=== PATIENT | female | born 1940 | race Caucasian/White ===

== ENCOUNTER → 2016-12-11 | Day surgery (SDC) | payer OTHER ==
[2016-12-05 08:38] VITALS: Ht 157.5 cm; Wt 85.0 kg
[~2016-12-11] VITALS: Ht 157.5 cm; Wt 85.0 kg
[~2016-12-11] MED LIST: 500ML BSS 0.3ML EPI 1:1000PF IRRIG ONE; ACETAMINOPHEN 325 MG TAB PO PRN; ALBUAER2 INH; AMVISC PLUS 0.8ML SYRINGE INT OCU ONE; ATROPINE SULFATE 0.1 MG/ML 5ML SYR IV PRN; AcetaZOLAMIDE 250 MG TAB PO SCH; BETAXOLOL HCL 0.25% OP SUSP PER DROP CHARGE OPL SCH; BRIMONIDINE TART 0.2% OP SOLN PER DROP CHARGE ONE; BSS FLUSH ONE; CHOL1000 PO; DILT180C58 PO; ENDOCOAT 0.85ML SYRINGE INT OCU ONE; EpHEDrine SULFATE INJ 50 MG/ML AMP IV PRN; EpINEphrine INJ 1MG/ML AMP 1 MG/ML AMP ONE; FLNIN/ NAE; GABA-113 PO; GLUCTAB7 PO; HYDR-2977 PO; KLN5X PO; LACTATED RINGER'S 1000ML 500 ML IV SCH; LIDOCAINE 4% OP SOLN DROP CHARGE ONE; LIDOCAINE 4% OP SOLN DROP CHARGE OPL SCH; LIDOCAINE HCL 1% MPF 2 ML VIAL ONE; LOSA1TAB PO; MIDAZOLAM HCL 1 MG/ML 2ML VIAL ONE; MIX: 4ML BSS 1ML EPI 1:1000 PF INSTIL ONE; MOXIFLOXACIN OPH SOLN PER DROP CHARGE ONE; OCUCOAT 1 ML SOLN IO ONE; POVIDONE-IODINE OP SOLN 30 ML BTL ONE; PROPARACAINE 0.5% OP SOLN PER DROP CHARGE OPL SCH; TOBRAMYCIN/DEXAMETHASONE OPH OINT PER APPLN CHARGE ONE
--- NOTE | 2016-12-11 06:41 | History & Physical Bridge - [place] ---
H&P Re-Evaluation Bridge Note: I have examined the patient, reviewed the History & Physical and in the interval since the performance of the History & Physical I have noted the following changes of clinical significance: No changes noted
[2016-12-11] MEDS: PHENYLEPHRINE HCL 2.5% OP SOLN PER DROP CHARGE OPL SCH ×2 (06:54→06:59)
[2016-12-11] MEDS: TROPICAMIDE 1% OP SOLN PER DROP CHARGE OPL SCH ×2 (06:55→07:00)
[2016-12-11] MEDS: CYCLOPENTOLATE HCL 1% OP SOLN PER DROP CHARGE OPL SCH ×2 (06:56→07:01)
[2016-12-11] MEDS: MOXIFLOXACIN OPH SOLN PER DROP CHARGE OPL SCH ×2 (06:57→07:10)
--- NOTE | 2016-12-11 07:58 | Discharge Instructions-SurgCtr ---
Discharge Instructions Date of Service Dec 11, 2016. Visit Reason for Visit: Left Cataract Discharge Discharge Diagnosis / Problem: lens implant left eye Discharge Goals Goal(s): Improve function Activity Recommendations Activity Limitations: resume your previous activity Lifting Limitations: no more than 10 pounds Exercise/Sports Limitations: gradually increase as tolerated May Resume Sexual Activity: when tolerated Shower/Bathe: tomorrow Driving or Machine Use: resume 1 day after discharge Anesthesia . Post Anesthesia Instructions: If you have had General Anesthesia or IV Sedation: * Do not drive today. * Resume driving when surgeon permits. * Do not make important decisions or sign legal documents today. * Call surgeon for: 1. Temperature elevations greater than 101 degrees F. 2. Uncontrollable pain. 3. Excessive bleeding. 4. Persistent nausea and vomiting. 5. Medication intolerance (nausea, vomiting or rash). * For nausea and vomiting use only clear liquids such as: tea, soda, bouillon until nausea subsides, then gradually increase diet as tolerated. * If you have any concerns or questions, call your surgeon's office. If physician is unavailable and it is an emergency, call 911 or go to the nearest emergency room. . Instructions / Follow-Up Instructions / Follow-Up ACTIVITY RECOMMENDATIONS: * Light activities. * Mild irritation and blurred vision are common for the first few days. * You may walk outside, read, watch television. * Redness around the white part of the eye is common. MEDICATIONS: Resume previous medications unless instructed otherwise by your surgeon. * Take white Diamox (Acetazolamide) tablet at 1 pm today. Start all eye drops at 1 pm today: * Eye drops (today and tomorrow): Prednisone - one drop in operative eye every 3 hours while awake Ofloxacin - one drop in operative eye every 3 hours while awake SPECIAL CARE INSTRUCTIONS: * Tape plastic shield over eye to sleep at night. Call your doctor at with any concerns or problems. FOLLOW UP VISIT: Follow-up with Dr Jeffery at [place] office as scheduled. Diet Recommendations Home Diet: no limitations Procedures Procedures Performed: cataract extraction with lens implant Pending Studies Studies pending at discharge: no Medical Emergencies . Who to Call and When: Medical Emergencies: If at any time you feel your situation is an emergency, please call 911 immediately. . Non-Emergent Contact Non-Emergency issues call your: [employer] Call Non-Emergent contact if: your pain is not controlled [phone] . . "Provider Documentation" section prepared by Oziel Jeffery. .
--- NOTE | 2016-12-11 07:59 | [facility] Operative Report ---
Operative Report Date of Service Dec 11, 2016. Operative Report 1. PREOPERATIVE DIAGNOSIS: Senile nuclear cataract, left eye. 2. POSTOPERATIVE DIAGNOSIS: Senile nuclear cataract, left eye. 3. PROCEDURE: Phacoemulsification of left cataract with posterior chamber lens implant, type [employer], model MI60L, power +24.5 diopters. ANESTHESIA: Local standby. SURGEON: Dr. Jeffery. COMPLICATIONS: None. OPERATING TIME: 10 minutes. 4. OPERATION AND FINDINGS: DESCRIPTION OF PROCEDURE: The left pupil was dilated. The anesthetic was administered using a topical technique. The left eye was prepped and draped. A speculum was placed. A clear corneal incision was formed. The chamber was filled with Amvisc Plus and Endocoat. Epinephrine solution was used. A paracentesis was placed. A capsulorrhexis was performed. The nucleus was hydrodissected. The lens was removed with phacoemulsification. Time was 4.95 seconds. The aspiration unit was used to remove the cortex. The capsule was filled with Amvisc Plus. The lens implant was folded and placed into the capsule. The incision was hydrated. The Amvisc was aspirated. The wound was secure. The chamber was deep. The pupil was round. Brimonidine, TobraDex ointment and Vigamox solution were placed. The speculum was removed. The patient was returned to the Recovery Room in stable condition. I attest to the content of the Intraoperative Record and any orders documented therein. Any exceptions are noted below. The scribe's documentation has been prepared in my presence, under my direction and personally reviewed by me in its entirety. I confirm that the note above accurately reflects all work, treatment, procedures, and medical decision making performed by me. I personally scribed for Oziel Jeffery M.D. ([email or web address]) on 12/11/16 at 07:59. Electronically submitted by Latosha Ott (ABI).
[2016-12-11 08:04] VITALS: TEMP 36.5
--- NOTE | 2016-12-11 08:19 | Anesthesia Progress Nt - [facility] ---
Anesthesia Post Op Note Date & Time Dec 11, 2016 at 08:19 Vital Signs Pain Intensity: 0 Vital Signs Past 12 Hours Date Time Temp Pulse Resp B/P (MAP) Pulse Ox O2 Delivery O2 Flow Rate FiO2 12/11/16 08:04 36.5 57 16 132/78 (96) 97 Room Air 12/11/16 06:40 36.4 71 20 168/94 (118) 96 Room Air Notes Mental Status: alert / awake / arousable, participated in evaluation Pt Amnestic to Procedure: Yes Nausea / Vomiting: adequately controlled Pain: adequately controlled Airway Patency, RR, SpO2: stable & adequate BP & HR: stable & adequate Hydration State: stable & adequate Anesthetic Complications: no major complications apparent
[2016-12-11 08:29] VITALS: BP 153/60; PULSE 57; O2SAT 96
== END | disposition home or self-care (01) ==
LOC: X.SURG 06:24
PROVIDERS: ATTEND Specialist
DX: H25.12 Age-related nuclear cataract, left eye (principal); I10 Essential (primary) hypertension; M19.90 Unspecified osteoarthritis, unspecified site; Z85.118 Personal history of other malignant neoplasm of bronchus and lung; Z90.2 Acquired absence of lung [part of]; Z68.34 Body mass index [BMI] 34.0-34.9, adult; Z98.41 Cataract extraction status, right eye

== ENCOUNTER → 2017-10-01 | Outpatient (CLI) | payer OTHER ==
[~2017-10-01] MED LIST changes: -500ML BSS 0.3ML EPI 1:1000PF IRRIG ONE; -ACETAMINOPHEN 325 MG TAB PO PRN; -AMVISC PLUS 0.8ML SYRINGE INT OCU ONE; -ATROPINE SULFATE 0.1 MG/ML 5ML SYR IV PRN; -AcetaZOLAMIDE 250 MG TAB PO SCH; -BETAXOLOL HCL 0.25% OP SUSP PER DROP CHARGE OPL SCH; -BRIMONIDINE TART 0.2% OP SOLN PER DROP CHARGE ONE; -BSS FLUSH ONE; -DILT180C58 PO; +DILT180C96 PO; -ENDOCOAT 0.85ML SYRINGE INT OCU ONE; -EpHEDrine SULFATE INJ 50 MG/ML AMP IV PRN; -EpINEphrine INJ 1MG/ML AMP 1 MG/ML AMP ONE; -LACTATED RINGER'S 1000ML 500 ML IV SCH; -LIDOCAINE 4% OP SOLN DROP CHARGE ONE; -LIDOCAINE 4% OP SOLN DROP CHARGE OPL SCH; -LIDOCAINE HCL 1% MPF 2 ML VIAL ONE; -MIDAZOLAM HCL 1 MG/ML 2ML VIAL ONE; -MIX: 4ML BSS 1ML EPI 1:1000 PF INSTIL ONE; -MOXIFLOXACIN OPH SOLN PER DROP CHARGE ONE; -OCUCOAT 1 ML SOLN IO ONE; -POVIDONE-IODINE OP SOLN 30 ML BTL ONE; -PROPARACAINE 0.5% OP SOLN PER DROP CHARGE OPL SCH; -TOBRAMYCIN/DEXAMETHASONE OPH OINT PER APPLN CHARGE ONE
--- NOTE | 2017-10-01 17:08 | DIAGNOSTIC IMAGING REPORT ---
CHEST CT WITH CONTRAST CT DOSE: 1190.74 mGy.cm HISTORY: Follow-up study in a patient with history of pulmonary nodule. History of lung cancer. Acute left lower quadrant abdominal pain. X TECHNIQUE: Multiaxial CT images of the chest, abdomen and pelvis were performed following the intravenous administration of contrast. A dose lowering technique was utilized adhering to the principles of ALARA. COMPARISON: CT chest 04/04/2015, PET CT 04/04/2014. FINDINGS: CT CHEST: Thyroid appears mildly heterogeneous without dominant nodule identified. No pathologically enlarged lymph nodes identified. Heart is upper limits of normal in size with coronary arterial disease. Thoracic aorta demonstrates moderate atherosclerosis without aneurysm or dissection. The imaged great vessels appear patent. The main pulmonary arterial tree is dilated, 3.2 cm. No focal filling defects within the pulmonary arterial tree. Moderate upper lobe predominant centrilobular emphysema. Postoperative changes from prior right upper lobectomy. 5 mm solid nodule of the right middle lobe, image 92 series 4, stable. 4 mm solid nodule right middle lobe on image 144 series 4 is also unchanged. Pleural-based 4 mm solid nodule of the right lower lobe, image 179 series 4 appears new from prior. 5 mm solid nodule of the left lower lobe, image 145 series 4 is unchanged. No new pulmonary nodules identified. Mild subsegmental bibasilar opacities suggest atelectasis with pleural parenchymal scarring of the right lung base. Mild bilateral bronchial wall thickening suggests bronchitis. Surgical clips about the left breast. Soft tissues are within normal limits. Bones appear intact. No suspicious lytic or blastic bony lesions. Multilevel spondylitic spurring and mostly mild facet arthrosis about the thoracic spine. CT ABDOMEN/PELVIS: No pneumatosis or pneumoperitoneum identified. Fatty infiltration of the liver. Layering gallstones are seen within the gallbladder neck. No CT evidence of acute cholecystitis. No intrahepatic biliary ductal dilation. Indeterminate 9 mm low attenuating focus of the pancreatic tail, image 136 series 6 . No pancreatic ductal dilation. Spleen and adrenal glands are within normal limits. 7 mm low attenuating lesion of the superior pole left kidney suggests renal cyst. No renal calculi or obstructive uropathy. Bladder is unremarkable. Curvilinear 6 mm calcification of the right fundal uterus may reflect calcification within a fibroid. Moderate to extensive atherosclerosis of the aorta with mild ectasia at the level the kidneys, 2.5 cm. No aneurysm. No bulky adenopathy. No bowel obstruction or focal bowel wall thickening. Extensive sigmoid colon diverticulosis without CT evidence of acute diverticulitis. Appendix appears normal. No inflammatory changes or ascites. Diastases recti. Bones appear intact without suspicious lytic or blastic bony lesions. Multilevel degenerative changes about the lumbar spine. IMPRESSION: 1. No acute intrathoracic, intra-abdominal or intrapelvic abnormality identified. No evidence of metastatic disease. 2. Emphysema with prior right upper lobectomy and unchanged pleural parenchymal scarring of the right lung base. 3. Multiple solid subcentimeter pulmonary nodules are again noted bilaterally which appear stable from comparison study 04/04/2015. 4. Cholelithiasis without CT evidence of acute cholecystitis. 5. Colonic diverticulosis without evidence of acute diverticulitis. 6. Hepatic steatosis. 7. 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 10/01/2017 5:07 PM Dictated Date/Time: 10/01/2017 4:48 PM
== END | disposition home or self-care (01) ==
LOC: C.CTS 15:26
PROVIDERS: ATTEND Student in an Organized Health Care Education/Training Program
DX: R10.32 Left lower quadrant pain (principal); J43.9 Emphysema, unspecified; R91.8 Other nonspecific abnormal finding of lung field; Z85.118 Personal history of other malignant neoplasm of bronchus and lung; Z90.2 Acquired absence of lung [part of]; K80.20 Calculus of gallbladder without cholecystitis without obstruction; K57.30 Diverticulosis of large intestine without perforation or abscess without bleeding; K76.0 Fatty (change of) liver, not elsewhere classified

== ENCOUNTER 2022-06-17 14:29 | Inpatient (IN) ==
[2022-06-17 16:55] LABS: Basophils # (auto) 0.09 K/uL (0-0.2); Basophils % (auto) 0.8 %; Eosinophils # (auto) 0.15 K/uL (0-0.50); Eosinophils % (auto) 1.3 %; Hematocrit (blood only) 35.1 % (34.1-44.9); Hemoglobin 11.6 g/dl (12.0-16.0); Immature Granulocytes # (auto) 0.04 K/uL (0.00-0.02); Immature Granulocytes % (auto) 0.4 %; Lymphocytes # (auto) 2.51 K/uL (1.2-3.4); Lymphocytes % (auto) 22.1 %; Mean Corpuscular Hemoglobin 25.9 pg (25.0-34.0); Mean Corpuscular Volume 78.3 fL (80.0-100.0); Mean Platelet Volume 8.6 fL (9.4-12.3); Monocytes # (auto) 1.14 K/uL (0.24-0.82); Neutrophils # (auto) 7.45 K/uL (1.4-6.5); Neutrophils % (auto) 65.4 %; Platelet Count 410 K/uL (130-400); RDW Coefficient of Variation 16.5 % (11.5-14.5); RDW Standard Deviation 47.3 fL (36.4-46.3); Red Blood Count 4.48 M/uL (3.93-5.22); White Blood Count 11.38 K/ul (4.8-10.8)
[2022-06-17 17:00] LABS: Appearance Urine Clear (Clear); Bacteria Urine Automated Negative (Negative); Bilirubin Urine Negative (Negative); Blood Urine Negative (Negative); Color Urine Yellow; Epithelial Cell Urine Auto >30 /lpf (0-5); Glucose Urine UA Negative (Negative); Ketones Urine Negative (Negative); Leukocyte Esterase Urine 1+ (Negative); Nitrite Urine Negative (Negative); Protein Urine 2+ (Negative); RBC Urine Automated 0-4 /hpf (0-4); Specific Gravity Urine 1.018 (1.000-1.030); Urobilinogen Urine Negative (Negative); pH Urine 5.5 (4.5-7.5)
[2022-06-17 17:17] LABS: Partial Thromboplastin Ratio 1.3; Partial Thromboplastin Time 36.7 Seconds (21.0-31.0); Prothrombin Time 10.5 Seconds (9.0-12.0)
[2022-06-17 17:24] LABS: Albumin Globulin Ratio 1.2 (0.9-2); Albumin Level 4.4 gm/dl (3.4-5.0); BUN Creatinine Ratio 16.4 (10-20); Bilirubin,Total 0.6 mg/dl (0.2-1.0); Calcium 9.5 mg/dl (8.5-10.1); Creatinine Clr Calc Pharmacy 67.2 ml/min; Est GFR (African American) 95.5 ml/min; Est GFR (Non-African American) 82.4 ml/min; Globulin 3.6 gm/dl (2.5-4.0); Magnesium 1.8 mg/dl (1.7-2.4); Potassium 4.3 mmol/L (3.5-5.1)
--- NOTE | 2022-06-17 19:10 | CT Scan Report ---
CT SCAN OF THE BRAIN WITHOUT IV CONTRAST CLINICAL HISTORY: Change in mental status. COMPARISON STUDY: MRI of the brain dated 01/10/2012. TECHNIQUE: Unenhanced axial CT scan of the brain is performed from the vertex to the skull base. A do se lowering technique was utilized adhering to the principles of ALARA. CT DOSE: 537.48 mGy.cm FINDINGS: Brain parenchyma: There is age-related involutional change noting moderate subcortical and periventri cular microangiopathic disease. There is no hemorrhage, mass effect, or evidence of acute territorial ischemia by CT criteria. Senior-white matter differentiation is preserved. No extra-axial fluid collec tion is seen. Ventricles, sulci, cisterns: Prominent secondary to involutional change. Intracranial vasculature: There is atherosclerotic calcification of the cavernous carotid and vertebr al arteries. Calvarium: Unremarkable. Sinuses and mastoids: There is mild mucosal thickening in the left maxillary antrum. The remaining vi sualized paranasal sinuses are clear. The mastoid air cells are well pneumatized. Orbits: The bony orbits are grossly intact. There are bilateral ocular lens implants. IMPRESSION: There is no hemorrhage, mass effect, or evidence of acute territorial ischemia by CT em butler. ACT 112: Negative or not required by law. Electronically signed by: Mahesh Sainz M.D. 06/17/2022 7:08 PM
--- NOTE | 2022-06-17 20:45 | Emergency Department Note ---
Impression & Plan Hyponatremia, Weakness, Acute confusion ED Provider Note NAME: ANNA WONG AGE: 81 SEX: F : 1940 ARRIVES VIA: Walk-In INFORMANT: Patient ED PROVIDER(S): Reynold Wiggins DO CHIEF COMPLAINT: weakness and confusion HPI: Patient is an 81-year-old female who presents to the ER for weakness and confusion. Granddaughter is at bedside and notes that the patient was confused on Xavier Ev and then confused again today. Lasted for about an hour. Denies any headache or change in vision. No chest pain or shortness of breath. No belly pain nausea vomiting or diarrhea. She notes she drinks about 3 24oz glass of water a day. She has no other complaints. Granddaughter confirms confusion and notes that it was more than her just not knowing her son's name but rather she did not know what was going on around her. There is no facial droop or slurred speech. ROS: See above HPI for pertinent positives & negatives. A total of 10 systems reviewed and were otherwise negative. PAST MEDICAL HISTORY:See Below PAST SURGICAL HISTORY:See Below FAMILY HISTORY:See Below SOCIAL HISTORY:See Below HOME MEDICATIONS:See Below ALLERGIES:See Below VITALS:See Below PHYSICAL EXAMINATION: GENERAL: Sitting up in bed, alert, well appearing, well nourished, no distress, non-toxic EYE EXAM: normal conjunctiva. PERRL and EOM's intact. OROPHARYNX: no exudate, no erythema, lips, buccal mucosa, and tongue normal and mucous membranes are moist NECK: supple, no nuchal rigidity, no adenopathy, non-tender LUNGS: Clear to auscultation. Normal chest wall mechanics HEART: no murmurs, S1 normal and S2 normal ABDOMEN: abdomen soft, non-tender, normo-active bowel sounds, no masses, no rebound or guarding. BACK: Back is symmetrical on inspection and there is no deformity, no midline tenderness, no CVA tenderness. SKIN: no rashes and no bruising UPPER EXTREMITIES: upper extremities are grossly normal. LOWER EXTREMITIES: No pitting edema. NEURO EXAM: Normal sensorium, cranial nerves II-XII intact, normal speech, no weakness of arms, no weakness of legs. No drift. Finger to nose intact. Gross sensation intact. Ambulates with a cane. MEDICAL DECISION MAKING: Patient is an 81-year-old female who presents the ER for confusion. IV was established blood work was obtained. Labs show no significant leukocytosis. Mild anemia 11.6. BMP with hyponatremia at 123. LFTs bilirubin was unremarkable. Troponin was negative. UA was contaminated with multiple epithelial cells. COVID was negative. CT head was negative. Chest x-ray was unremarkable. Patient was discussed with the hospitalist for further evaluation and admission as she is at baseline. Triage Nursing notes reviewed. Limited review of prior medical records performed Vital Signs: reviewed and remarkable for no significant abnormalities Differential diagnosis: Differential diagnoses includes but is not limited to toxic, metabolic, infectious, traumatic, cardiac, neurologic, hematologic, psychiatric and inflammatory etiologies. ER treatment provided: See below Diagnostics interpreted by me: ECG: Sinus rhythm rate of 65 Normal axis No PVCs T wave inversion in lead aVL QTC 413 Cardiac Monitoring: An order was placed for continuous cardiac monitoring. The monitor shows a rate of 70 with sinus rhythm. Laboratory studies: As stated above and show below. Imaging studies: CT head was negative Chest x-ray with no pneumonia Consultation(s): Discussed with the hospitalist Dr. Tran for further evaluation Procedures: none Critical Care: None Past Med/Surg History Social History Smoking Status: Never smoker Preferred Language: Georgian Feels Safe at Home: Yes Allergies Allergies Allergy/AdvReac Type Severity Reaction Status Date / Time No Known Allergies Allergy Unknown Verified 05/13/20 20:17 Home Meds Home Medications Medication Instructions Recorded Confirmed cholecalciferol (vitamin D3) 25 25 mcg PO DAILY 05/13/20 06/18/22 mcg (1,000 unit) tablet (Vitamin D3) clonazepam 0.5 mg tablet 0.5 mg PO BID 05/13/20 06/18/22 diltiazem HCl 180 mg 180 mg PO DAILY 05/13/20 06/18/22 capsule,extended release 24 hr fluticasone propionate 50 2 spray intranasal DAILY 05/13/20 06/18/22 mcg/actuation nasal spray,suspension gabapentin 300 mg capsule 300 mg PO AMHS 05/13/20 06/18/22 hydralazine 10 mg tablet 10 mg PO TID 05/13/20 06/18/22 losartan 50 mg tablet 50 mg PO DAILY 05/13/20 06/18/22 rosuvastatin 5 mg tablet 5 mg PO DAILY 05/13/20 06/18/22 fluticasone 250 mcg-salmeterol 50 1 ea inhalation AMHS 06/18/22 06/18/22 mcg/dose blistr powdr for inhalation gabapentin 100 mg capsule 100 mg PO QAM 06/18/22 06/18/22 [id number]-[id number] C-Mn 500 1 cap PO DAILY 06/18/22 06/18/22 mg-400 mg capsule (Glucosamine Chondroitin Maximum Strength) omega 5-jxt-ifb-fish oil 1,000 mg 1 cap PO DAILY 06/18/22 06/18/22 (120 mg-180 mg) capsule (Fish Oil) Results & Data (ED) Vital Signs Vital Signs - 24 hr 06/17/22 14:43 06/18/22 00:32 Temperature 37.2 C Temperature Source Temporal Artery Scan Pulse Rate 67 Pulse Rate [Apical] 71 Pulse Rhythm [Apical] Regular Respiratory Rate 18 19 Respiratory Effort / Characteristics Non-Labored Spontaneous Respiratory Depth Normal Normal Respiratory Pattern Regular Blood Pressure 172/81 H Blood Pressure [Right Arm] 176/87 H Blood Pressure Mean 111 Blood Pressure Mean [Right Arm] 116 Blood Pressure Position Sitting Pulse Oximetry 97 97 Oxygen Delivery Method Room Air Room Air Sepsis Recent Fever Within 48 Hours No Sepsis New/Unexplained Change in Mental Status N/A Sepsis Action Taken by Nursing No Action Required Laboratory Data Result diagrams: 06/17/22 16:35 06/17/22 16:35 Lab Results 06/17/22 06/17/22 06/17/22 Range/Units 16:33 16:35 16:35 WBC 11.38 H (4.8-10.8) K/ul RBC 4.48 (3.93-5.22) M/uL Hgb 11.6 L (12.0-16.0) g/dl Hct 35.1 (34.1-44.9) % MCV 78.3 L (80.0-100.0) fL MCH 25.9 (25.0-34.0) pg MCHC 33.0 (32.0-36.0) g/dL RDW Std Deviation 47.3 H (36.4-46.3) fL RDW Coeff of Denis 16.5 H (11.5-14.5) % Plt Count 410 H (130-400) K/uL MPV 8.6 L (9.4-12.3) fL Immature Gran % (Auto) 0.4 % Neut % (Auto) 65.4 % Lymph % (Auto) 22.1 % [place] % (Auto) 10.0 % Eos % (Auto) 1.3 % Baso % (Auto) 0.8 % Neut # (Auto) 7.45 H (1.4-6.5) K/uL Lymph # (Auto) 2.51 (1.2-3.4) K/uL [place] # (Auto) 1.14 H (0.24-0.82) K/uL Eos # (Auto) 0.15 (0-0.50) K/uL Baso # (Auto) 0.09 (0-0.2) K/uL Immature Gran # (Auto) 0.04 H (0.00-0.02) K/uL PT 10.5 (9.0-12.0) Seconds INR 1.0 (0.9-1.1) APTT 36.7 H (21.0-31.0) Seconds PTT Ratio 1.3 Sodium (136-145) mmol/L Potassium (3.5-5.1) mmol/L Chloride (98-107) mmol/L Carbon Dioxide (21-32) mmol/L Anion Gap (3-11) BUN (6-23) mg/dl Creatinine (0.6-1.2) mg/dl Est Cr Clr Drug Dosing ml/min Est GFR ( Amer) ml/min Est GFR (Non-Af Amer) ml/min BUN/Creatinine Ratio (10-20) Glucose (70-99(Fasting)) mg/dl Calcium (8.5-10.1) mg/dl Magnesium (1.7-2.4) mg/dl Total Bilirubin (0.2-1.0) mg/dl AST (13-39) U/L ALT (7-52) U/L Alkaline Phosphatase (34-104) U/L Troponin I High Sens (0-14) pg/ml Total Protein (6.0-8.3) gm/dl Albumin (3.4-5.0) gm/dl Globulin (2.5-4.0) gm/dl Albumin/Globulin Ratio (0.9-2) TSH (0.300-4.500) uIu/ml Urine Color Yellow Urine Appearance Clear (Clear) Urine pH 5.5 (4.5-7.5) Ur Specific Wana 1.018 (1.000-1.030) Urine Protein 2+ H (Negative) Urine Glucose (UA) Negative (Negative) Urine Ketones Negative (Negative) Urine Blood Negative (Negative) Urine Nitrite Negative (Negative) Urine Bilirubin Negative (Negative) Urine Urobilinogen Negative (Negative) Ur Leukocyte Esterase 1+ H (Negative) Urine WBC (Auto) 10-30 H (0-5) /hpf Urine RBC (Auto) 0-4 (0-4) /hpf U Hyaline Cast (Auto) 1-5 (0-5) /lpf U Epithel Cells (Auto) >30 H (0-5) /lpf Urine Bacteria (Auto) Negative (Negative) SARS-CoV-2, RNA, NAAT (NEGATIVE) 06/17/22 06/17/22 06/17/22 Range/Units 16:35 16:35 21:43 WBC (4.8-10.8) K/ul RBC (3.93-5.22) M/uL Hgb (12.0-16.0) g/dl Hct (34.1-44.9) % MCV (80.0-100.0) fL MCH (25.0-34.0) pg MCHC (32.0-36.0) g/dL RDW Std Deviation (36.4-46.3) fL RDW Coeff of Denis (11.5-14.5) % Plt Count (130-400) K/uL MPV (9.4-12.3) fL Immature Gran % (Auto) % Neut % (Auto) % Lymph % (Auto) % [place] % (Auto) % Eos % (Auto) % Baso % (Auto) % Neut # (Auto) (1.4-6.5) K/uL Lymph # (Auto) (1.2-3.4) K/uL [place] # (Auto) (0.24-0.82) K/uL Eos # (Auto) (0-0.50) K/uL Baso # (Auto) (0-0.2) K/uL Immature Gran # (Auto) (0.00-0.02) K/uL PT (9.0-12.0) Seconds INR (0.9-1.1) APTT (21.0-31.0) Seconds PTT Ratio Sodium 123 L (136-145) mmol/L Potassium 4.3 (3.5-5.1) mmol/L Chloride 90 L (98-107) mmol/L Carbon Dioxide 25 (21-32) mmol/L Anion Gap 8 (3-11) BUN 11 (6-23) mg/dl Creatinine 0.67 (0.6-1.2) mg/dl Est Cr Clr Drug Dosing 67.2 ml/min Est GFR ( Amer) 95.5 ml/min Est GFR (Non-Af Amer) 82.4 ml/min BUN/Creatinine Ratio 16.4 (10-20) Glucose 116 H (70-99(Fasting)) mg/dl Calcium 9.5 (8.5-10.1) mg/dl Magnesium 1.8 (1.7-2.4) mg/dl Total Bilirubin 0.6 (0.2-1.0) mg/dl AST 40 H (13-39) U/L ALT 36 (7-52) U/L Alkaline Phosphatase 68 (34-104) U/L Troponin I High Sens (0-14) pg/ml Total Protein 8.0 (6.0-8.3) gm/dl Albumin 4.4 (3.4-5.0) gm/dl Globulin 3.6 (2.5-4.0) gm/dl Albumin/Globulin Ratio 1.2 (0.9-2) TSH 0.889 (0.300-4.500) uIu/ml Urine Color Urine Appearance (Clear) Urine pH (4.5-7.5) Ur Specific Wana (1.000-1.030) Urine Protein (Negative) Urine Glucose (UA) (Negative) Urine Ketones (Negative) Urine Blood (Negative) Urine Nitrite (Negative) Urine Bilirubin (Negative) Urine Urobilinogen (Negative) Ur Leukocyte Esterase (Negative) Urine WBC (Auto) (0-5) /hpf Urine RBC (Auto) (0-4) /hpf U Hyaline Cast (Auto) (0-5) /lpf U Epithel Cells (Auto) (0-5) /lpf Urine Bacteria (Auto) (Negative) SARS-CoV-2, RNA, NAAT NEGATIVE (NEGATIVE) 06/17/22 Range/Units 23:29 WBC (4.8-10.8) K/ul RBC (3.93-5.22) M/uL Hgb (12.0-16.0) g/dl Hct (34.1-44.9) % MCV (80.0-100.0) fL MCH (25.0-34.0) pg MCHC (32.0-36.0) g/dL RDW Std Deviation (36.4-46.3) fL RDW Coeff of Denis (11.5-14.5) % Plt Count (130-400) K/uL MPV (9.4-12.3) fL Immature Gran % (Auto) % Neut % (Auto) % Lymph % (Auto) % [place] % (Auto) % Eos % (Auto) % Baso % (Auto) % Neut # (Auto) (1.4-6.5) K/uL Lymph # (Auto) (1.2-3.4) K/uL [place] # (Auto) (0.24-0.82) K/uL Eos # (Auto) (0-0.50) K/uL Baso # (Auto) (0-0.2) K/uL Immature Gran # (Auto) (0.00-0.02) K/uL PT (9.0-12.0) Seconds INR (0.9-1.1) APTT (21.0-31.0) Seconds PTT Ratio Sodium (136-145) mmol/L Potassium (3.5-5.1) mmol/L Chloride (98-107) mmol/L Carbon Dioxide (21-32) mmol/L Anion Gap (3-11) BUN (6-23) mg/dl Creatinine (0.6-1.2) mg/dl Est Cr Clr Drug Dosing ml/min Est GFR ( Amer) ml/min Est GFR (Non-Af Amer) ml/min BUN/Creatinine Ratio (10-20) Glucose (70-99(Fasting)) mg/dl Calcium (8.5-10.1) mg/dl Magnesium (1.7-2.4) mg/dl Total Bilirubin (0.2-1.0) mg/dl AST (13-39) U/L ALT (7-52) U/L Alkaline Phosphatase (34-104) U/L Troponin I High Sens 6.8 (0-14) pg/ml Total Protein (6.0-8.3) gm/dl Albumin (3.4-5.0) gm/dl Globulin (2.5-4.0) gm/dl Albumin/Globulin Ratio (0.9-2) TSH (0.300-4.500) uIu/ml Urine Color Urine Appearance (Clear) Urine pH (4.5-7.5) Ur Specific Wana (1.000-1.030) Urine Protein (Negative) Urine Glucose (UA) (Negative) Urine Ketones (Negative) Urine Blood (Negative) Urine Nitrite (Negative) Urine Bilirubin (Negative) Urine Urobilinogen (Negative) Ur Leukocyte Esterase (Negative) Urine WBC (Auto) (0-5) /hpf Urine RBC (Auto) (0-4) /hpf U Hyaline Cast (Auto) (0-5) /lpf U Epithel Cells (Auto) (0-5) /lpf Urine Bacteria (Auto) (Negative) SARS-CoV-2, RNA, NAAT (NEGATIVE) Imaging Data Radiologist's Impression: Head CT 06/17/22 17:56 CT SCAN OF THE BRAIN WITHOUT IV CONTRAST CLINICAL HISTORY: Change in mental status. COMPARISON STUDY: MRI of the brain dated 01/10/2012. TECHNIQUE: Unenhanced axial CT scan of the brain is performed from the vertex to the skull base. A dose lowering technique was utilized adhering to the principles of ALARA. CT DOSE: 537.48 mGy.cm FINDINGS: Brain parenchyma: There is age-related involutional change noting moderate subcortical and periventricular microangiopathic disease. There is no hemorrhage, mass effect, or evidence of acute territorial ischemia by CT criteria. Senior-white matter differentiation is preserved. No extra-axial fluid c ollection is seen. Ventricles, sulci, cisterns: Prominent secondary to involutional change. Intracranial vasculature: There is atherosclerotic calcification of the cavernous carotid and vertebral arteries. Calvarium: Unremarkable. Sinuses and mastoids: There is mild mucosal thickening in the left maxillary antrum. The remaining visualized paranasal sinuses are clear. The mastoid air cells are well pneumatized. Orbits: The bony orbits are grossly intact. There are bilateral ocular lens implants. IMPRESSION: There is no hemorrhage, mass effect, or evidence of acute territorial ischemia by CT criteria. ACT 112: Negative or not required by law. Electronically signed by: Mahesh Sainz M.D. 06/17/2022 7:08 PM Chest X-Ray 06/17/22 20:24 SINGLE VIEW CHEST CLINICAL HISTORY: Generalized weakness. FINDINGS: An AP, portable, upright chest radiograph is compared to study dated 08/16/2014 and correlated with chest CT dated 09/02/2019.. The cardiomediastinal silhouette is unremarkable noting atherosclerotic calcification of the thoracic aorta. Emphysema and chronic interstitial thickening is similar to previous. Postsurgical change and volume loss is noted in the right lung. Scarring/atelectasis is noted at the lung bases. No airspace consolidation or large pleural effusion is identified. An approximately 3 cm left suprahilar pulmonary lesion is suspected. No pneumothorax is seen. The skeletal structures are osteopenic. The bony thorax is grossly intact. IMPRESSION: 1. Emphysematous change with no acute cardiopulmonary abnormality identified. 2. A 3 cm left suprahilar opacity is highly suspicious for a lung mass. C orrelation with a contrast-enhanced chest CT is recommended for further assessment. ACT 112: Negative or not required by law. Electronically signed by: Mahesh Sainz M.D. 06/17/2022 9:12 PM Discharge Plan Visit Data Chief Complaint: Confusion Stated Complaint: ALLERGIC REACTION ED Provider: Reynold Wiggins Discharge Problem: Hyponatremia, Weakness, Acute confusion Forms Stand Alone Forms: My [facility] Prescriptions Prescriptions: No Action losartan 50 mg tablet 50 mg PO DAILY hydralazine 10 mg tablet 10 mg PO TID diltiazem HCl 180 mg capsule,extended release 24hr 180 mg PO DAILY clonazepam 0.5 mg tablet 0.5 mg PO BID gabapentin 300 mg capsule 300 mg PO AMHS fluticasone propionate 50 mcg/actuation spray,suspension 2 spray INTRANASAL DAILY Rx Instructions: 2 sprays in affected nostril daily rosuvastatin 5 mg tablet 5 mg PO DAILY cholecalciferol (vitamin D3) [Vitamin D3] 25 mcg (1,000 unit) Tablet 25 mcg PO DAILY fluticasone propion-salmeterol 250-50 mcg/dose blister with device 1 ea INHALATION AMHS gabapentin 100 mg capsule 100 mg PO QAM [id number]-[id number]-uox C-Mn [Glucosamine Chondroitin MaxStr] 500-400 mg Capsule 1 cap PO DAILY omega 0-pur-anf-fish oil [Fish Oil] 1,000 mg (120 mg-180 mg) Capsule 1 cap PO DAILY Referrals Referrals: Oriana Santizo DO [Primary Care Provider] -
--- NOTE | 2022-06-17 21:14 | XRay Report ---
SINGLE VIEW CHEST CLINICAL HISTORY: Generalized weakness. FINDINGS: An AP, portable, upright chest radiograph is compared to study dated 08/16/2014 and correlat ed with chest CT dated 09/02/2019.. The cardiomediastinal silhouette is unremarkable noting atheroscle rotic calcification of the thoracic aorta. Emphysema and chronic interstitial thickening is similar t o previous. Postsurgical change and volume loss is noted in the right lung. Scarring/atelectasis is n oted at the lung bases. No airspace consolidation or large pleural effusion is identified. An approxi mately 3 cm left suprahilar pulmonary lesion is suspected. No pneumothorax is seen. The skeletal stru ctures are osteopenic. The bony thorax is grossly intact. IMPRESSION: 1. Emphysematous change with no acute cardiopulmonary abnormality identified. 2. A 3 cm left suprahilar opacity is highly suspicious for a lung mass. Correlation with a contrast-e nhanced chest CT is recommended for further assessment. ACT 112: Negative or not required by law. Electronically signed by: Mahesh Sainz M.D. 06/17/2022 9:12 PM
[2022-06-18] MEDS ORDERED: clonazePAM 0.5 MG TAB PO STA (01:17)
[2022-06-18] MEDS ORDERED: cefTRIAXone SODIUM 2,000 MG in DEXTROSE 5% 50 ML IV SCH (02:00)
[2022-06-18] MEDS ORDERED: cefTRIAXone SODIUM 2000MG/70ML D5W IV ONE (02:10)
[2022-06-18] MEDS ORDERED: POLYETHYLENE (MIRALAX) 17 GM PACK PO PRN (02:54)
[2022-06-18] MEDS ORDERED: ACETAMINOPHEN 325 MG TAB PO PRN (02:54)
[2022-06-18] MEDS ORDERED: ONDANSETRON INJ 2 MG/ML 2 ML VIAL IV PRN (02:54)
[2022-06-18] MEDS ORDERED: NITROGLYCERIN SL 0.4 MG/TAB TAB SL PRN (02:54)
[2022-06-18 03:09] LABS: BUN Creatinine Ratio 16.9 (10-20); Calcium 8.7 mg/dl (8.5-10.1); Creatinine Clr Calc Pharmacy 76.3 ml/min; Est GFR (African American) 99.6 ml/min; Potassium 3.9 mmol/L (3.5-5.1)
[2022-06-18] MEDS ORDERED: STAT IV STA (03:28)
[2022-06-18] MEDS ORDERED: SODIUM CHLORIDE 3 % 100 ML IV ONE (03:28)
--- NOTE | 2022-06-18 03:47 | History and Physical Report ---
DATE OF ADMISSION: 06/18/2022 CHIEF COMPLAINT: Confusion. HISTORY OF PRESENT ILLNESS: This is an 81-year-old female with past medical history significant for diabetes, not on any medication, hyperlipidemia, COPD, hypertension, generalized anxiety disorder, who lives alone at home, and ambulates with a walker and cane. Family lives close by, who was brought in because of confusion. She was brought in by granddaughter, but currently the patient is alone in the room. She was confused on Ev and today also. She could not remember her son's name, currently alert and oriented, but the patient thinks she is not back to her baseline. Denies any chest pain, no shortness of breath. Has some nausea. No vomiting, no abdominal pain. Normal bowel and bladder movements. Appetite is okay. No headache, no runny nose, no sore throat, no difficulty swallowing. She has normal bowel and bladder movements. No blood in stool or black stools. No swelling in the legs. Resting comfortably, hemodynamically stable and the patient found to have possible UTI and also sodium of 123. ALLERGIES: No known drug allergies. PAST MEDICAL HISTORY: As mentioned above. PAST SURGICAL HISTORY: , colonoscopy, hysteroscopy lumbosacral injection, ligation of oviducts, cataract surgery, right thoracotomy with wedge resection of the right upper lobe with frozen section, right upper lobectomy with sampling. MEDICATIONS: The patient is on vitamin D 25 mcg p.o. daily, clonazepam 0.5 mg p.o. b.i.d., diltiazem 180 mg p.o. daily, Advair Diskus one inhalation b.i.d., Flonase 2 sprays intranasal daily, gabapentin 300 mg p.o. b.i.d. and gabapentin 100 mg p.o. a.m., chondroitin glucosamine 1 capsule p.o. daily, hydralazine 10 mg p.o. t.i.d., losartan 50 mg p.o. daily, fish oil 1 capsule p.o. daily, rosuvastatin 5 mg p.o. daily. FAMILY HISTORY: Significant for father has arthritis. SOCIAL HISTORY: , lives alone. Quit smoking in 2019. Smoked 1 pack a day for 20 years. No alcohol use. No drug use. REVIEW OF SYSTEMS: As per HPI. Rest of the review of systems is negative. PHYSICAL EXAMINATION: GENERAL: The patient is obese, not in acute distress. VITAL SIGNS: Temperature 37.2, pulse 71, respiratory rate 19, blood pressure 176/87, oxygen 97% on room air. HEENT: Pupils equal, round and reactive to light. Oral mucosa moist. NECK: No JVD. No neck masses. CARDIOVASCULAR: S1 and S2 heard. Regular rate and rhythm. No murmur, no gallop. RESPIRATORY SYSTEM: Normal AP diameter. No accessory muscle use. No wheezing, no crackles. ABDOMEN: Soft, bowel sounds present, nontender, no distention. CENTRAL NERVOUS SYSTEM: Alert and oriented x3. Recent and remote memory intact. Speech is clear. No facial droop. Obeys simple commands. Moves extremities. EXTREMITIES: No edema, no erythema. LABORATORY DATA: WBC 11.3, hemoglobin 11.6, hematocrit 35.1, platelets 410. PT 10.5, INR 1, APTT 36.7. Sodium 123, potassium 4.3, chloride 90, bicarbonate 25, BUN 11, creatinine 0.6, serum glucose 116, calcium 9.4, magnesium 1.8, total bilirubin 0.6, AST 40, ALT 36, alkaline phosphatase 68. Troponin I high sensitivity 6.8. TSH 0.8. Urinalysis, +1 leukocyte esterase. SARS-CoV-2 rapid test negative. IMAGING DATA: Chest x-ray: Emphysematous changes with no acute cardiopulmonary abnormality, 3 cm left suprahilar opacities, highly suspicious for lung mass. Correlation with contrast-enhanced chest CT is recommended. CT head: NO acute findings seen. EKG: Poor quality data. Sinus rhythm with first-degree AV block at a rate of 65, QTc of 413. No acute ST changes seen. ASSESSMENT AND PLAN: This is an 81-year-old female who presents with confusion and found to have hyponatremia and possible urinary tract infection. 1. Confusion, currently alert and oriented. The patient was not remembering her son's name today, she thinks she is not back to her baseline. CT of the head is okay. Urinary tract infection and hyponatremia could be contributing. We will monitor. 2. Hyponatremia. Sodium of 123. The patient states she does not drink that much water at home. We will follow urine osmolality, serum osmolality, urine sodium levels. We will get a stat BMP Nephro consult. Follow BMP q. 6 hours. Stat BMP showed Sodium of 121. Ordered one dose of 100ml 3% hypertonic saline. Started on iv fluids NS 50ml/hr. Will follow labs closely. Further recommendations as per nephro. 3. Urinary tract infection. Placed her on Rocephin. Follow the cultures. 4. History of chronic obstructive pulmonary disease: Currently stable. Continue home inhalers. 5. History of generalized anxiety disorder. Continue her home Klonopin. 6. Hyperlipidemia: On statin. 7. Hypertension: On losartan, hydralazine, diltiazem. We will monitor the blood pressure. 8. Diabetes, not on any medications. Will follow HbA1c levels. Follow the blood sugars. 9. Deep venous thrombosis prophylaxis: Placed on Lovenox. DISPOSITION: Closely monitor in the med tele. PT/OT prior to discharge. Social service to help with discharge planning. Job ID: [id number]
[2022-06-18 04:44] LABS: Basophils # (auto) 0.07 K/uL (0-0.2); Basophils % (auto) 0.7 %; Eosinophils # (auto) 0.11 K/uL (0-0.50); Eosinophils % (auto) 1.1 %; Hematocrit (blood only) 31.3 % (34.1-44.9); Hemoglobin 10.6 g/dl (12.0-16.0); Immature Granulocytes # (auto) 0.03 K/uL (0.00-0.02); Immature Granulocytes % (auto) 0.3 %; Lymphocytes # (auto) 2.17 K/uL (1.2-3.4); Lymphocytes % (auto) 22.6 %; Mean Corpuscular Hgb Conc 33.9 g/dL (32.0-36.0); Mean Corpuscular Volume 76.7 fL (80.0-100.0); Mean Platelet Volume 8.6 fL (9.4-12.3); Monocytes # (auto) 1.02 K/uL (0.24-0.82); Monocytes % (auto) 10.6 %; Neutrophils # (auto) 6.21 K/uL (1.4-6.5); Neutrophils % (auto) 64.7 %; Platelet Count 334 K/uL (130-400); RDW Coefficient of Variation 16.4 % (11.5-14.5); RDW Standard Deviation 45.4 fL (36.4-46.3); Red Blood Count 4.08 M/uL (3.93-5.22); White Blood Count 9.61 K/ul (4.8-10.8)
[2022-06-18] MEDS: SODIUM CHLORIDE 0.9% 1000ML 1,000 ML IV SCH (05:00)
[2022-06-18 05:11] LABS: BUN Creatinine Ratio 17.5 (10-20); Calcium 8.7 mg/dl (8.5-10.1); Est GFR (African American) 100.8 ml/min; Est GFR (Non-African American) 86.9 ml/min; Magnesium 1.8 mg/dl (1.7-2.4); Potassium 3.9 mmol/L (3.5-5.1)
--- NOTE | 2022-06-18 07:21 | Communication Note ---
Date of Service: June 18, 2022 Left lung mass on cxr. Will get ct chest with contrast when patient is more stable. Thanks
[2022-06-18 08:07] LABS: Estimated Average Glucose 134 mg/dl; Hemoglobin A1C 6.3 % (4.5-5.6)
[2022-06-18] MEDS ORDERED: FLUTICASONE/SALMETEROL 250/50 (ADVAIR) 14 PUFF/1 INHALER INH SCH (09:00)
[2022-06-18] MEDS: FLUTICASONE/VILANTEROL 200/25MCG 14 PUFFS/INHALER INH SCH (09:10)
[2022-06-18] MEDS: FLUTICASONE PROPIONATE NA SPR 16 GM BTL SCH (09:10)
[2022-06-18] MEDS: LOSARTAN POTASSIUM 50 MG TAB PO SCH (09:11)
[2022-06-18] MEDS: GABAPENTIN 300 MG CAP PO SCH ×2 (09:11→21:08)
[2022-06-18] MEDS: CHOLECALCIFEROL 1,000 UNITS 25 MCG TAB PO SCH (09:11)
[2022-06-18] MEDS: GABAPENTIN 100 MG CAP PO SCH (09:11)
[2022-06-18] MEDS: GLUCOSAMINE SULFATE 500 MG CAP PO SCH (09:12)
[2022-06-18] MEDS: ENOXAPARIN INJ 40 MG/0.4 ML SYR SQ SCH (09:12)
[2022-06-18] MEDS: ROSUVASTATIN CALCIUM 5 MG TAB PO SCH (09:12)
[2022-06-18] MEDS: hydrALAZINE 10 MG TAB PO SCH ×3 (09:12→21:08)
[2022-06-18] MEDS: dilTIAZem HCL 180 MG CAPCR PO SCH (09:13)
[2022-06-18] MEDS: clonazePAM 0.5 MG TAB PO SCH ×2 (09:13→21:08)
[2022-06-18 11:35] LABS: Calcium 9.1 mg/dl (8.5-10.1); Est GFR (African American) 100.8 ml/min; Est GFR (Non-African American) 86.9 ml/min; Potassium 3.8 mmol/L (3.5-5.1)
--- NOTE | 2022-06-18 12:49 | Electrocardiogram Report ---
Test Reason : Blood Pressure : / mmHG Vent. Rate : 065 BPM Atrial Rate : 065 BPM P-R Int : 240 ms QRS Dur : 076 ms QT Int : 398 ms P-R-T Axes : 068 036 092 degrees QTc Int : 413 ms Poor data quality, interpretation may be adversely affected Sinus rhythm with 1st degree A-V block Abnormal ECG When compared with ECG of 06-FEB-2022 21:58, DE interval has increased Minimal criteria for Inferior infarct are no longer Present T wave amplitude has increased in Inferior leads QT has shortened Confirmed by Dinesh Pichardo ([id number]) on 06/18/2022 12:49:33 PM Referred By: REFERRED SELF Confirmed By:Slim Pichardo
--- NOTE | 2022-06-18 12:51 | Communication Note ---
Date of Service: June 18, 2022 81-year-old female with past medical history significant for diabetes, not on any medication, hyperlipidemia, COPD, hypertension, generalized anxiety disorder, who lives alone at home, and ambulates with a walker and cane who was brought in for episodes of confusion Patient seen and examined Granddaughters at bedside reports patient is back to her baseline She currently denies any complaints Denied any urinary symptoms Exam is unremarkable. currently AOX3 Lab notable for hyponatremia. UA noted +1 leuk esterase, 10-30WBC Urine culture prelim - pin point growth, reincubating Head CT was negative for acute abnormality CXR noted emphysematous changes, 3cm left suprahilar opacity suspicious for lung mass Awaiting urine studies Continue to monitor Na. Improved 126 from 123 on presentation Got hypertonic saline in ER. Currently on NSS. Will Follow up Nephrology Hold off further antibiotics for now and monitor I discussed CXR findings with patient and need for CT chest to better evaluate lesion. She stated that she does not want a CT chest. That she was not interested in knowing what the lesion is. She stated that even if it was recurrence of her previous cancer (lung), she would not want treatment. She stated she does not want CT as her children will make her further investigate and treat if we get that. She stated she is too old to go through treatment again She stated she had surgery and chemo in 2007 when she was diagnosed I informed her to let us know if she changes her mind. Further evaluation of lesion will not be pursued at this time per patient's wishes Other plans as detailed in H&P by Dr Merino this morning
--- NOTE | 2022-06-18 13:17 | Nephrology Consultation ---
Date of Consultation June 18, 2022 Assessment & Plan (1) Hyponatremia: hypotonic hyponatremia. DDX includes > euvolemic hyponatremia from structural lung disease/malignancy or from low solute diet versus hypovolemic process/mild volume depletion responding well to NS at low rate; goal for today 1800 would be 128 > and close to that goal at 127 doubt she has UTI as no bacteria on UA and not on OP abtx ANTI TANK MISSILEMAN -continue NS at current low rate -maintain eukalemia -await urine studies for low sodium -at this point would repeat next labs in AM and so ordered History of Present Illness Reason for Consultation: hyponatremia Requesting Physician: Dr Merino Attending Physician: Andra London MD History of Present Illness 81 y/o F whom I'm asked to see for hyponatremia was admitted overnight for evaluation of confusion with presenting sodium 123 at 1630 yesterday and lung mass noted on workup imaging. PMH includes DM not on meds, HL, COPD, WARREN, chronic ambulatory dysfunction (uses walker and cane at baseline), reformed tobacco user (20 pk yr hx). she has had RUL lobectomy w/ sampling/ R thoracotomy in past. Also chronic hyponatremia w/ sNa generally low 130s on prior OP [employer] labs. CT head unremarkable; some concern for UTI at admission. For low Na she received 100 mL hypertonic saline then started on 50 mL/hr NS. her sodium has improved to 126 as of 11 am today and 127 this evening. The pt denies n/v/d or decreased po. states pcp told her ot increase water intake recently so she did though can't tell me how much she drinks in a day. c/o L leg sciatica and ankle pain. denies fall. denies light headedness or dizziness. denies voiding complaints. no edema. no exertional or resting sob or cough. Allergies Allergy/AdvReac Type Severity Reaction Status Date / Time No Known Allergies Allergy Unknown Verified 05/13/20 20:17 Home Medications Medication Instructions Recorded Confirmed Type cholecalciferol (vitamin D3) 25 25 mcg PO DAILY 05/13/20 06/18/22 History mcg (1,000 unit) tablet (Vitamin D3) clonazepam 0.5 mg tablet 0.5 mg PO BID 05/13/20 06/18/22 History diltiazem HCl 180 mg 180 mg PO DAILY 05/13/20 06/18/22 History capsule,extended release 24 hr fluticasone propionate 50 2 spray intranasal DAILY 05/13/20 06/18/22 History mcg/actuation nasal spray,suspension gabapentin 300 mg capsule 300 mg PO AMHS 05/13/20 06/18/22 History hydralazine 10 mg tablet 10 mg PO TID 05/13/20 06/18/22 History losartan 50 mg tablet 50 mg PO DAILY 05/13/20 06/18/22 History rosuvastatin 5 mg tablet 5 mg PO DAILY 05/13/20 06/18/22 History fluticasone 250 mcg-salmeterol 50 1 ea inhalation AMHS 06/18/22 06/18/22 History mcg/dose blistr powdr for inhalation gabapentin 100 mg capsule 100 mg PO QAM 06/18/22 06/18/22 History jngqyxwnyeo-hbfykdlla-jje C-Mn 500 1 cap PO DAILY 06/18/22 06/18/22 History mg-400 mg capsule (Glucosamine Chondroitin Maximum Strength) omega 0-aql-gvn-fish oil 1,000 mg 1 cap PO DAILY 06/18/22 06/18/22 History (120 mg-180 mg) capsule (Fish Oil) Patient History Medical History (Updated 06/18/22 @ 13:16 by Annabel Oropeza MD, PhD) Chronic hyponatremia COPD (chronic obstructive pulmonary disease) History of lung cancer "resected by Dr. Flowers [address] Mcleod ." HTN (hypertension) Tobacco use disorder, moderate, in sustained remission Social History Smoking Status: Never smoker Preferred Language: [place] Communication Ability: Effective Feels Safe at Home: Yes Assistive Devices: Cane and Walker Review of Systems Review of Systems: All systems reviewed & are unremarkable except as noted in HPI & below Physical Exam Constitutional: well developed, well nourished, + obese and cooperative; no acute distress Eyes: EOM intact bilaterally ENMT: Ears: no external ear abnormality Nose: no external nose abnormality Mouth: + dry oral mucous membranes Neck: no nuchal rigidity Respiratory: normal respiratory effort Auscultation: + diminished lung sounds Cardiovascular: Rate/Rhythm: regular rate and regular rhythm Extremities: no edema Gastrointestinal (Abdomen): Inspection/Auscultation: normal bowel sounds Percussion/Palpation: abdomen soft; abdomen nontender Musculoskeletal: Extremities: strength 5/5 throughout Skin: no rashes, warm and dry Neurologic: martinez, fluent speech, no tremor Psychiatric: Orientation: oriented to person and oriented to place Speech: normal rate/rhythm/volume of speech Thought Process: + tangential thought process Results & Data ([facility]) Vital Signs (Past 12 Hours) Vital Signs Pulse Pulse Resp BP BP Pulse Ox O2 Del Method 06/18/22 09:19 74 20 172/72 H 97 Room Air 06/18/22 07:30 67 26 H 98 06/18/22 05:00 74 22 146/81 H 96 Room Air 06/18/22 04:36 72 19 134/72 96 Room Air 06/18/22 02:00 70 20 151/84 H 96 Room Air Diagnostic Findings head ct no acute process CXR 1. Emphysematous change with no acute cardiopulmonary abnormality identified. 2. A 3 cm left suprahilar opacity is highly suspicious for a lung mass. Correlation with a contrast-enhanced chest CT is recommended for further assessment.
[2022-06-18 19:15] LABS: BUN Creatinine Ratio 15.2 (10-20); Est GFR (African American) 81.4 ml/min; Est GFR (Non-African American) 70.2 ml/min; Potassium 4.2 mmol/L (3.5-5.1)
[2022-06-19] MEDS: SODIUM CHLORIDE 0.9% 1000ML 1,000 ML IV SCH ×2 (02:20→13:04)
[2022-06-19 03:13] LABS: Appearance Urine Clear (Clear); Bacteria Urine Automated Negative (Negative); Bilirubin Urine Negative (Negative); Blood Urine Negative (Negative); Cast Urine Automated 0 /lpf (0-5); Color Urine Yellow; Glucose Urine UA Negative (Negative); Ketones Urine Negative (Negative); Leukocyte Esterase Urine Trace (Negative); Nitrite Urine Negative (Negative); Protein Urine Negative (Negative); RBC Urine Automated 0-4 /hpf (0-4); Specific Gravity Urine 1.009 (1.000-1.030); Urobilinogen Urine Negative (Negative); pH Urine 5.5 (4.5-7.5)
[2022-06-19] MEDS: GLUCOSAMINE SULFATE 500 MG CAP PO SCH (07:17)
[2022-06-19] MEDS: dilTIAZem HCL 180 MG CAPCR PO SCH (07:17)
[2022-06-19] MEDS: CHOLECALCIFEROL 1,000 UNITS 25 MCG TAB PO SCH (07:17)
[2022-06-19] MEDS: GABAPENTIN 300 MG CAP PO SCH ×2 (07:17→21:08)
[2022-06-19] MEDS: LOSARTAN POTASSIUM 50 MG TAB PO SCH (07:18)
[2022-06-19] MEDS: GABAPENTIN 100 MG CAP PO SCH (07:19)
[2022-06-19] MEDS: FLUTICASONE PROPIONATE NA SPR 16 GM BTL SCH (07:19)
[2022-06-19] MEDS: ROSUVASTATIN CALCIUM 5 MG TAB PO SCH (07:19)
[2022-06-19] MEDS: hydrALAZINE 10 MG TAB PO SCH ×3 (07:19→21:10)
[2022-06-19] MEDS: ENOXAPARIN INJ 40 MG/0.4 ML SYR SQ SCH (07:19)
[2022-06-19] MEDS: FLUTICASONE/VILANTEROL 200/25MCG 14 PUFFS/INHALER INH SCH (07:20)
[2022-06-19] MEDS: clonazePAM 0.5 MG TAB PO SCH ×2 (07:21→21:14)
[2022-06-19 08:06] LABS: Hematocrit (blood only) 32.3 % (34.1-44.9); Hemoglobin 10.6 g/dl (12.0-16.0); Mean Corpuscular Hemoglobin 25.4 pg (25.0-34.0); Mean Corpuscular Hgb Conc 32.8 g/dL (32.0-36.0); Mean Corpuscular Volume 77.3 fL (80.0-100.0); Mean Platelet Volume 8.9 fL (9.4-12.3); Platelet Count 350 K/uL (130-400); RDW Coefficient of Variation 16.9 % (11.5-14.5); RDW Standard Deviation 47.4 fL (36.4-46.3); Red Blood Count 4.18 M/uL (3.93-5.22); White Blood Count 8.31 K/ul (4.8-10.8)
[2022-06-19 08:55] LABS: BUN Creatinine Ratio 15.9 (10-20); Calcium 8.9 mg/dl (8.5-10.1); Creatinine Clr Calc Pharmacy 72.5 ml/min; Est GFR (African American) 97.5 ml/min; Est GFR (Non-African American) 84.1 ml/min; Potassium 3.9 mmol/L (3.5-5.1)
[2022-06-19] MEDS ORDERED: Nursing to Pharmacy Communication SCH (13:00)
--- NOTE | 2022-06-19 14:56 | Nephrology Progress Note ---
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 -continue NS at current low rate of 50/hr Daily labs in AM. FFR of 1200 per day S--no new issues. Vital stable. making urine Physical Exam Constitutional: well developed, well nourished, + obese and cooperative; no acute distress Eyes: EOM intact bilaterally ENMT: Ears: no external ear abnormality Nose: no external nose abnormality Mouth: + dry oral mucous membranes Neck: no nuchal rigidity Respiratory: normal respiratory effort Auscultation: + diminished lung sounds Cardiovascular: Rate/Rhythm: regular rate and regular rhythm Extremities: no edema Gastrointestinal (Abdomen): Inspection/Auscultation: normal bowel sounds Percussion/Palpation: abdomen soft; abdomen nontender Musculoskeletal: Extremities: strength 5/5 throughout Skin: no rashes, warm and dry Neurologic: martinez, fluent speech, no tremor Psychiatric: Orientation: oriented to person and oriented to place Speech: normal rate/rhythm/volume of speech Thought Process: + tangential thought process Results & Data ([facility]) Vital Signs (Past 12 Hours) Vital Signs Temp Pulse Pulse Resp BP Pulse Ox O2 Del Method 06/19/22 11:44 36.4 C L 62 20 112/70 96 Room Air 06/19/22 08:25 37.0 C 52 L 20 127/76 96 Room Air 06/19/22 07:05 74 06/19/22 03:00 36.7 C 64 20 142/74 H 96 Room Air
--- NOTE | 2022-06-19 16:38 | Hospitalist Progress Note ---
Date of Service June 19, 2022 Assessment & Plan (1) Hyponatremia: Plan: Patient is an 81 yr female who presents with confusion and found to have hyponatremia and possible urinary tract infection. Acute metabolic cephalopathy Likely secondary to hyponatremia UTI ruled out --CT head:There is no hemorrhage, mass effect, or evidence of acute territorial ischemia by CT criteria. -- Blood cultures negative to date Urine culture negative Mental status back to baseline Acute on Chronic hyponatremia Likely secondary to SIADH, low solute diet and excessive fluid intake Sodium 123> 126> 127> 130 Continue gentle IV fluids Continue fluid restriction Monitor sodium levels Appreciate nephrology input Suspicious lung mass CXR:A 3 cm left suprahilar opacity is highly suspicious for a lung mass. Correlation with a contrast-enhanced chest CT is recommended for further assessment. Patient reports having Prior lung cancer Patient reports no further investigations despite explaining the risks and complications She is currently not interested in any further treatment even if the lesion was to be malignant. COPD No signs of exacerbation Continue home inhalers Generalized anxiety disorder Continue Klonopin Hyperlipidemia: On statin Hypertension: Continue losartan, hydralazine, diltiazem DM II Not on any meds HbA1c: 6.3 Diet control DVT Px: Lovenox SQ Code Status Full Code DISPOSITION: PT/OT prior to discharge Admission and Anticipated Discharge Date Admission Date: June 18, 2022 Subjective Patient is seen and examined at bedside Offers no complaints today Sodium levels improved to 130 today Confusion resolved Denies any chest pain, shortness breath, dizziness, nausea, abdominal pain Review of Systems Review of Systems: All systems reviewed & are unremarkable except as noted in Subjective Physical Exam Physical Exam: Physical Exam: Vitals signs as noted above General Appearance:Obese, no apparent distress Head: normocephalic, Atraumatic Eyes: normal inspection, EOMI Neck: supple, Trachea midline Respiratory/Chest: Normal breath sounds, CTA, No accessory muscle use Cardiovascular: S1, S2, No murmur Abdomen/GI:Soft, Non tender, Bowel sounds present Extremities/Musculoskeletal:normal inspection, no edema Neurologic/Psych:AAOX3, grossly no focal neurological deficits Skin: normal color, warm Results & Data Results & Data ([facility]) Vital Signs (Past 12 Hours) Vital Signs Temp Pulse Pulse Resp BP Pulse Ox O2 Del Method 06/19/22 15:08 61 06/19/22 11:44 36.4 C L 62 20 112/70 96 Room Air 06/19/22 08:25 37.0 C 52 L 20 127/76 96 Room Air 06/19/22 07:05 74 Laboratory Results Short CBC 06/19/22 Range/Units 07:19 WBC 8.31 (4.8-10.8) K/ul Hgb 10.6 L (12.0-16.0) g/dl Hct 32.3 L (34.1-44.9) % Plt Count 350 (130-400) K/uL BMP 06/18/22 06/19/22 18:21 07:19 Sodium 127 L 130 L Potassium 4.2 3.9 Chloride 95 L 97 L Carbon Dioxide 23 27 BUN 12 10 Creatinine 0.79 0.63 Glucose 121 H 89 Calcium 9.0 8.9 Urine 06/19/22 Range/Units 02:50 Urine Color Yellow Urine Appearance Clear (Clear) Urine pH 5.5 (4.5-7.5) Ur Specific [place] 1.009 (1.000-1.030) Urine Protein Negative (Negative) Urine Glucose (UA) Negative (Negative)
[2022-06-20] MEDS: CHOLECALCIFEROL 1,000 UNITS 25 MCG TAB PO SCH (08:33)
[2022-06-20] MEDS: hydrALAZINE 10 MG TAB PO SCH ×2 (08:34→13:02)
[2022-06-20] MEDS: LOSARTAN POTASSIUM 50 MG TAB PO SCH (08:34)
[2022-06-20] MEDS: dilTIAZem HCL 180 MG CAPCR PO SCH (08:34)
[2022-06-20] MEDS: GABAPENTIN 100 MG CAP PO SCH (08:34)
[2022-06-20] MEDS: GABAPENTIN 300 MG CAP PO SCH (08:34)
[2022-06-20] MEDS: FLUTICASONE PROPIONATE NA SPR 16 GM BTL SCH (08:35)
[2022-06-20] MEDS: ROSUVASTATIN CALCIUM 5 MG TAB PO SCH (08:35)
[2022-06-20] MEDS: ENOXAPARIN INJ 40 MG/0.4 ML SYR SQ SCH (08:35)
[2022-06-20] MEDS: GLUCOSAMINE SULFATE 500 MG CAP PO SCH (08:35)
[2022-06-20] MEDS: FLUTICASONE/VILANTEROL 200/25MCG 14 PUFFS/INHALER INH SCH (08:36)
[2022-06-20] MEDS: SODIUM CHLORIDE 0.9% 1000ML 1,000 ML IV SCH (08:37)
[2022-06-20] MEDS: clonazePAM 0.5 MG TAB PO SCH (08:38)
[2022-06-20 10:10] LABS: BUN Creatinine Ratio 17.7 (10-20); Calcium 8.8 mg/dl (8.5-10.1); Creatinine Clr Calc Pharmacy 73.8 ml/min; Est GFR (Non-African American) 84.6 ml/min; Potassium 3.7 mmol/L (3.5-5.1)
--- NOTE | 2022-06-20 13:21 | Nephrology Progress Note ---
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 Can stop NS now. na 130 for 2 days so stable Mild hyponatremia . Daily labs in AM. FFR of 1200 per day nephro f/u within 1-2 weeks. S--no new issues. Vital stable. making urine Physical Exam Constitutional: well developed, well nourished, + obese and cooperative; no acute distress Eyes: EOM intact bilaterally ENMT: Ears: no external ear abnormality Nose: no external nose abnormality Mouth: + dry oral mucous membranes Neck: no nuchal rigidity Respiratory: normal respiratory effort Auscultation: + diminished lung sounds Cardiovascular: Rate/Rhythm: regular rate and regular rhythm Extremities: no edema Gastrointestinal (Abdomen): Inspection/Auscultation: normal bowel sounds Per cussion/Palpation: abdomen soft; abdomen nontender Musculoskeletal: Extremities: strength 5/5 throughout Skin: no rashes, warm and dry Neurologic: martinez, fluent speech, no tremor Psychiatric: Orientation: oriented to person and oriented to place Speech: normal rate/rhythm/volume of speech Thought Process: + tangential thought process Results & Data ([facility]) Vital Signs (Past 12 Hours) Vital Signs Temp Pulse Pulse Resp BP BP Pulse Ox 06/20/22 13:01 65 20 146/73 H 96 06/20/22 11:33 36.6 C 77 20 175/77 H 93 06/20/22 09:22 59 L 06/20/22 07:59 36.8 C 69 16 154/75 H 95 06/20/22 03:22 36.6 C 83 20 120/65 94 O2 Del Method 06/20/22 13:01 Room Air 06/20/22 11:33 Room Air 06/20/22 09:22 06/20/22 07:59 Room Air 06/20/22 03:22 Room Air
--- NOTE | 2022-06-20 14:29 | Hospitalist Progress Note ---
Date of Service June 20, 2022 Assessment & Plan (1) Hyponatremia: Plan: Patient is an 81 yr female who presents with confusion and found to have hyponatremia and possible urinary tract infection. Acute metabolic cephalopathy Likely secondary to hyponatremia UTI ruled out --CT head:There is no hemorrhage, mass effect, or evidence of acute territorial ischemia by CT criteria. -- Blood cultures negative to date Urine culture negative Mental status back to baseline Acute on Chronic hyponatremia Likely secondary to SIADH, low solute diet and excessive fluid intake Sodium 123> 126> 127> 130 Received gentle IV fluids Continue fluid restriction Monitor sodium levels Appreciate nephrology input Needs follow-up with nephrology in 1 to 2 weeks Suspicious lung mass CXR:A 3 cm left suprahilar opacity is highly suspicious for a lung mass. Correlation with a contrast-enhanced chest CT is recommended for further assessment. Patient reports having Prior lung cancer Patient reports no further investigations despite explaining the risks and complications She is currently not interested in any further treatment even if the lesion was to be malignant. COPD No signs of exacerbation Continue home inhalers Generalized anxiety disorder Continue Klonopin Hyperlipidemia: On statin Hypertension: Continue losartan, hydralazine, diltiazem DM II Not on any meds HbA1c: 6.3 Diet control DVT Px: Lovenox SQ Code Status Full Code DISPOSITION: Home Admission and Anticipated Discharge Date Admission Date: June 18, 2022 Subjective Patient is seen and examined at bedside Offers no complaints Sodium levels stable at 130 Denies any chest pain, shortness breath, dizziness, nausea, abdominal pain Discussed with Nephrology today Review of Systems Review of Systems: All systems reviewed & are unremarkable except as noted in Subjective Physical Exam Physical Exam: Physical Exam: Vitals signs as noted above General Appearance:Obese, no apparent distress Head: normocephalic, Atraumatic Eyes: normal inspection, EOMI Neck: supple, Trachea midline Respiratory/Chest: Normal breath sounds, CTA, No accessory muscle use Cardiovascular: S1, S2, No murmur Abdomen/GI:Soft, Non tender, Bowel sounds present Extremities/Musculoskeletal:normal inspection, no edema Neurologic/Psych:AAOX3, grossly no focal neurological deficits Skin: normal color, warm Results & Data Results & Data ([facility]) Vital Signs (Past 12 Hours) Vital Signs Temp Pulse Pulse Resp BP BP Pulse Ox 06/20/22 13:01 65 20 146/73 H 96 06/20/22 11:33 36.6 C 77 20 175/77 H 93 06/20/22 09:22 59 L 06/20/22 07:59 36.8 C 69 16 154/75 H 95 06/20/22 03:22 36.6 C 83 20 120/65 94 O2 Del Method 06/20/22 13:01 Room Air 06/20/22 11:33 Room Air 06/20/22 09:22 06/20/22 07:59 Room Air 06/20/22 03:22 Room Air Laboratory Results [facility] 06/20/22 09:19 Sodium 130 L Potassium 3.7 Chloride 98 Carbon Dioxide 26 BUN 11 Creatinine 0.62 Glucose 128 H Calcium 8.8
--- NOTE | 2022-06-20 14:37 | Discharge Summary ---
Date of Service June 20, 2022 Admission HPI Per Admitting Provider CHIEF COMPLAINT: Confusion. HISTORY OF PRESENT ILLNESS: This is an 81-year-old female with past medical history significant for diabetes, not on any medication, hyperlipidemia, COPD, hypertension, generalized anxiety disorder, who lives alone at home, and ambulates with a walker and cane. Family lives close by, who was brought in because of confusion. She was brought in by granddaughter, but currently the patient is alone in the room. She was confused on Corona Ev and today also. She could not remember her son's name, currently alert and oriented, but the patient thinks she is not back to her baseline. Denies any chest pain, no shortness of breath. Has some nausea. No vomiting, no abdominal pain. Normal bowel and bladder movements. Appetite is okay. No headache, no runny nose, no sore throat, no difficulty swallowing. She has normal bowel and bladder movements. No blood in stool or black stools. No swelling in the legs. Resting comfortably, hemodynamically stable and the patient found to have possible UTI and also sodium of 123. Admission Exam Per Admitting Provider PHYSICAL EXAMINATION: GENERAL: The patient is obese, not in acute distress. VITAL SIGNS: Temperature 37.2, pulse 71, respiratory rate 19, blood pressure 176/87, oxygen 97% on room air. HEENT: Pupils equal, round and reactive to light. Oral mucosa moist. NECK: No JVD. No neck masses. CARDIOVASCULAR: S1 and S2 heard. Regular rate and rhythm. No murmur, no gallop. RESPIRATORY SYSTEM: Normal AP diameter. No accessory muscle use. No wheezing, no crackles. ABDOMEN: Soft, bowel sounds present, nontender, no distention. CENTRAL NERVOUS SYSTEM: Alert and oriented x3. Recent and remote memory intact. Speech is clear. No facial droop. Obeys simple commands. Moves extremities. EXTREMITIES: No edema, no erythema. Principal Diagnosis Acute metabolic cephalopathy Acute on Chronic hyponatremia Lung Mass Discharge Data Allergies Allergy/AdvReac Type Severity Reaction Status Date / Time No Known Allergies Allergy Unknown Verified 05/13/20 20:17 Consultations 06/17/22 20:38 ED Decision to Admit Stat 06/18/22 08:00 Consult Nephrology Routine Procedures Performed Laboratory Results WBC 8.31 K/ul (4.8-10.8) 06/19/22 07:19 RBC 4.18 M/uL (3.93-5.22) 06/19/22 07:19 Hgb 10.6 g/dl (12.0-16.0) L 06/19/22 07:19 Hct 32.3 % (34.1-44.9) L 06/19/22 07:19 MCV 77.3 fL (80.0-100.0) L 06/19/22 07:19 MCH 25.4 pg (25.0-34.0) 06/19/22 07:19 MCHC 32.8 g/dL (32.0-36.0) 06/19/22 07:19 RDW Std Deviation 47.4 fL (36.4-46.3) H 06/19/22 07:19 RDW Coeff of Denis 16.9 % (11.5-14.5) H 06/19/22 07:19 Plt Count 350 K/uL (130-400) 06/19/22 07:19 MPV 8.9 fL (9.4-12.3) L 06/19/22 07:19 Immature Gran % (Auto) 0.3 % 06/18/22 04:29 Neut % (Auto) 64.7 % 06/18/22 04:29 Lymph % (Auto) 22.6 % 06/18/22 04:29 [place] % (Auto) 10.6 % 06/18/22 04:29 Eos % (Auto) 1.1 % 06/18/22 04:29 Baso % (Auto) 0.7 % 06/18/22 04:29 Neut # (Auto) 6.21 K/uL (1.4-6.5) 06/18/22 04:29 Lymph # (Auto) 2.17 K/uL (1.2-3.4) 06/18/22 04:29 [place] # (Auto) 1.02 K/uL (0.24-0.82) H 06/18/22 04:29 Eos # (Auto) 0.11 K/uL (0-0.50) 06/18/22 04:29 Baso # (Auto) 0.07 K/uL (0-0.2) 06/18/22 04:29 Immature Gran # (Auto) 0.03 K/uL (0.00-0.02) H 06/18/22 04:29 PT 10.5 Seconds (9.0-12.0) 06/17/22 16:35 INR 1.0 (0.9-1.1) 06/17/22 16:35 APTT 36.7 Seconds (21.0-31.0) H 06/17/22 16:35 PTT Ratio 1.3 06/17/22 16:35 Sodium 130 mmol/L (136-145) L 06/20/22 09:19 Potassium 3.7 mmol/L (3.5-5.1) 06/20/22 09:19 Chloride 98 mmol/L (98-107) 06/20/22 09:19 Carbon Dioxide 26 mmol/L (21-32) 06/20/22 09:19 Anion Gap 6 (3-11) 06/20/22 09:19 BUN 11 mg/dl (6-23) 06/20/22 09:19 Creatinine 0.62 mg/dl (0.6-1.2) 06/20/22 09:19 Est Cr Clr Drug Dosing 73.8 ml/min 06/20/22 09:19 Est GFR ( Amer) 98.0 ml/min 06/20/22 09:19 Est GFR (Non-Af Amer) 84.6 ml/min 06/20/22 09:19 BUN/Creatinine Ratio 17.7 (10-20) 06/20/22 09:19 Glucose 128 mg/dl (70-99(Fasting)) H 06/20/22 09:19 POC Glucose 102 mg/dl (70-99) H 06/20/22 11:30 Estimat Average Glucose 134 mg/dl 06/18/22 04:29 Hemoglobin A1c 6.3 % (4.5-5.6) H 06/18/22 04:29 Osmolality 256 mOsm/kg (280-300) L 06/18/22 04:29 Calcium 8.8 mg/dl (8.5-10.1) 06/20/22 09:19 Magnesium 1.8 mg/dl (1.7-2.4) 06/18/22 04:29 Total Bilirubin 0.6 mg/dl (0.2-1.0) 06/17/22 16:35 AST 40 U/L (13-39) H 06/17/22 16:35 ALT 36 U/L (7-52) 06/17/22 16:35 Alkaline Phosphatase 68 U/L (34-104) 06/17/22 16:35 Troponin I High Sens 6.8 pg/ml (0-14) 06/17/22 23:29 Total Protein 8.0 gm/dl (6.0-8.3) 06/17/22 16:35 Albumin 4.4 gm/dl (3.4-5.0) 06/17/22 16:35 Globulin 3.6 gm/dl (2.5-4.0) 06/17/22 16:35 Albumin/Globulin Ratio 1.2 (0.9-2) 06/17/22 16:35 TSH 0.889 uIu/ml (0.300-4.500) 06/17/22 16:35 Urine Color Yellow 06/19/22 02:50 Urine Appearance Clear (Clear) 06/19/22 02:50 Urine pH 5.5 (4.5-7.5) 06/19/22 02:50 Ur Specific [place] 1.009 (1.000-1.030) 06/19/22 02:50 Urine Protein Negative (Negative) 06/19/22 02:50 Urine Glucose (UA) Negative (Negative) 06/19/22 02:50 Urine Ketones Negative (Negative) 06/19/22 02:50 Urine Blood Negative (Negative) 06/19/22 02:50 Urine Nitrite Negative (Negative) 06/19/22 02:50 Urine Bilirubin Negative (Negative) 06/19/22 02:50 Urine Urobilinogen Negative (Negative) 06/19/22 02:50 Ur Leukocyte Esterase Trace (Negative) H 06/19/22 02:50 Urine WBC (Auto) 1-5 /hpf (0-5) 06/19/22 02:50 Urine RBC (Auto) 0-4 /hpf (0-4) 06/19/22 02:50 U Hyaline Cast (Auto) 0 /lpf (0-5) 06/19/22 02:50 U Epithel Cells (Auto) 10-20 /lpf (0-5) H 06/19/22 02:50 Urine Bacteria (Auto) Negative (Negative) 06/19/22 02:50 Urine Osmolality 285 mOsm/kg (500-800) L 06/19/22 02:50 Ur Random Sodium 49 mmol/L 06/19/22 02:50 SARS-CoV-2, RNA, NAAT NEGATIVE (NEGATIVE) 06/17/22 21:[address] 06/17/22 17:56 CT SCAN OF THE BRAIN WITHOUT IV CONTRAST CLINICAL HISTORY: Change in mental status. COMPARISON STUDY: MRI of the brain dated 01/10/2012. TECHNIQUE: Unenhanced axial CT scan of the brain is performed from the vertex to the skull base. A dose lowering technique was utilized adhering to the principles of ALARA. CT DOSE: 537.48 mGy.cm FINDINGS: Brain parenchyma: There is age-related involutional change noting moderate subcortical and periventricular microangiopathic disease. There is no hemorrhage, mass effect, or evidence of acute territorial ischemia by CT criteria. Senior-white matter differentiation is preserved. No extra-axial fluid collection is seen. Ventricles, sulci, cisterns: Prominent secondary to involutional change. Intracranial vasculature: There is atherosclerotic calcification of the cavernous carotid and vertebral arteries. Calvarium: Unremarkable. Sinuses and mastoids: There is mild mucosal thickening in the left maxillary antrum. The remaining visualized paranasal sinuses are clear. The mastoid air cells are well pneumatized. Orbits: The bony orbits are grossly intact. There are bilateral ocular lens implants. IMPRESSION: There is no hemorrhage, mass effect, or evidence of acute territorial ischemia by CT criteria. ACT 112: Negative or not required by law. Electronically signed by: Mahesh Sainz M.D. 06/17/2022 7:08 PM Chest X-Ray 06/17/22 20:24 SINGLE VIEW CHEST CLINICAL HISTORY: Generalized weakness. FINDINGS: An AP, portable, upright chest radiograph is compared to study dated 08/16/2014 and correlated with chest CT dated 09/02/2019.. The cardiomediastinal silhouette is unremarkable noting atherosclerotic calcification of the thoracic aorta. Emphysema and chronic interstitial thickening is similar to previous. Postsurgical change and volume loss is noted in the right lung. Scarring/atelectasis is noted at the lung bases. No airspace consolidation or large pleural effusion is identified. An approximately 3 cm left suprahilar pulmonary lesion is suspected. No pneumothorax is seen. The skeletal structures are osteopenic. The bony thorax is grossly intact. IMPRESSION: 1. Emphysematous change with no acute cardiopulmonary abnormality identified. 2. A 3 cm left suprahilar opacity is highly suspicious for a lung mass. Correlation with a contrast-enhanced chest CT is recommended for further assessment. ACT 112: Negative or not required by law. Electronically signed by: Mahesh Sainz M.D. 06/17/2022 9:12 PM Ordered Studies 06/17/22 17:56 CT head/brain wo con Stat Hospital Course (1) Hyponatremia: Patient is an 81 yr female who presents with confusion and found to have hyponatremia and possible urinary tract infection. Acute metabolic cephalopathy Likely secondary to hyponatremia UTI ruled out --CT head:There is no hemorrhage, mass effect, or evidence of acute territorial ischemia by CT criteria. -- Blood cultures negative to date Urine culture negative Mental status back to baseline Acute on Chronic hyponatremia Likely secondary to SIADH, low solute diet and excessive fluid intake Sodium 123> 126> 127> 130 Received gentle IV fluids Continue fluid restriction Monitor sodium levels Appreciate nephrology input Needs follow-up with nephrology in 1 to 2 weeks Suspicious lung mass CXR:A 3 cm left suprahilar opacity is highly suspicious for a lung mass. Correlation with a contrast-enhanced chest CT is recommended for further assessment. Patient reports having Prior lung cancer Patient reports no further investigations despite explaining the risks and complications She is currently not interested in any further treatment even if the lesion was to be malignant. COPD No signs of exacerbation Continue home inhalers Generalized anxiety disorder Continue Klonopin Hyperlipidemia: On statin Hypertension: Continue losartan, hydralazine, diltiazem DM II Not on any meds HbA1c: 6.3 Diet control DVT Px: Lovenox SQ Code Status Full Code DISPOSITION: Home Total Time Total Time Spent Total Time Spent (In Minutes): 40 minutes Discharge Plan Discharge Items Patient Disposition: Home - Self-Care Reason For Visit: CONFUSION Discharge Diagnosis: Acute metabolic cephalopathy Acute on Chronic hyponatremia Lung Mass Activity: Per Instructions section Exercise/Sports: Gradually increase as tolerated Non-emergency contact: Primary Care Provider and Manager [employer] Call non-emergency contact if: you have any medication questions, your symptoms worsen, your pain is concerning for you and you have a fever Follow-up/Referrals: Oriana Santizo DO [Primary Care Provider] - (Date & Time 06/26/2022 9:00 AM Provider Luther Menjivar MD Department [facility] ) Diet: Carb Consistent or DM2 and Heart Healthy Fluids: 1500ml (6 cups) Diet Texture: Easy to Chew Addtl Attending Provider Instructions: Follow-up with your primary care physician on 06/26/2022 9:00 AM Follow-up with your shipping agent in 1-2 weeks as advised --Get blood test (basic metabolic panel) in 1 week and follow-up with your primary care physician/shipping agent for further recommendations. -- Continue fluid restriction 1500 ml/day as recommended by your shipping agent. Discuss with your physician during follow-up visit for further recommendations. -- Consider further work-up for lung mass if you reconsider to get treatment. Seek immediate medical attention if your symptoms reoccur or worsen Please take all medications as instructed on discharge list below. Please call if you have any questions or problems. You can reach a [facility] hospitalist on duty at [facility] 24 hours a day by calling [phone] Pending Studies at Discharge: No Stand-Alone Forms: My [facility], Smoking Cessation Medications and DC Order Prescriptions: Continued losartan 50 mg tablet 50 mg PO DAILY hydralazine 10 mg tablet 10 mg PO TID diltiazem HCl 180 mg capsule,extended release 24hr 180 mg PO DAILY clonazepam 0.5 mg tablet 0.5 mg PO BID gabapentin 300 mg capsule 300 mg PO [facility] fluticasone propionate 50 mcg/actuation spray,suspension 2 spray INTRANASAL DAILY Rx Instructions: 2 sprays in affected nostril daily rosuvastatin 5 mg tablet 5 mg PO DAILY cholecalciferol (vitamin D3) [Vitamin D3] 25 mcg (1,000 unit) Tablet 25 mcg PO DAILY fluticasone propion-salmeterol 250-50 mcg/dose blister with device 1 ea INHALATION [facility] gabapentin 100 mg capsule 100 mg PO QAM [id number] C-Mn [Glucosamine Chondroitin MaxStr] 500-400 mg Capsule 1 cap PO DAILY omega [id number] oil [Fish Oil] 1,000 mg (120 mg-180 mg) Capsule 1 cap PO DAILY Discharge Orders: Discharge Order (Routine); Ordered 06/20/22 Ordered By: Edgar Mckenna/Other Patient Handouts: Prediabetes Admission Data Admit Date/Time: 06/18/22 01:22 Attending Provider: Edgar Gibson Admit Provider: Uche Merino Primary Care Provider: Oriana Santizo Other Providers: Uche Merino ; Annabel Oropeza
[2022-06-20] MEDS ORDERED: FLUTICASONE/SALMETEROL 250/50 (ADVAIR) 14 PUFF/1 INHALER INH SCH (21:00)
== END 2022-06-20 15:36 | disposition home or self-care (01) | DRG 643 ==
LOC: ED 14:29 → EDINP 06-18 01:22 → SUATTDRO 06-18 01:22 → 2N 06-18 02:55

== ENCOUNTER 2022-07-27 15:19 | Inpatient (IN) ==
--- NOTE | 2022-07-27 16:26 | XRay Report ---
XR chest 1V portable HISTORY: 81 years-old Female Chest pain, nonspecific acute chest pain COMPARISON: 06/17/2022 TECHNIQUE: AP view of the chest FINDINGS: Cardiac silhouette is enlarged. No pneumothorax, pleural effusion, overt pulmonary edema or lobar air space consolidation. Spiculated irregular 3.7 cm left suprahilar nodule was previously measured at 3 cm. Emphysema with chronic interstitial coarsening. Degenerative changes of the shoulders and spine. IMPRESSION: 1. Emphysema without acute process. 2. Spiculated irregular nodular opacity of the left suprahilar lung is redemonstrated, again suspicio us for primary bronchogenic carcinoma. 3. Cardiomegaly. ACT 112: Negative or not required by law. The above report was generated using voice recognition software. It may contain grammatical, syntax o r spelling errors. Electronically signed by: Jony Segura M.D. 07/27/2022 4:25 PM
[2022-07-27 16:34] LABS: Partial Thromboplastin Ratio 1.2; Partial Thromboplastin Time 33.3 Seconds (21.0-31.0); Prothrombin Time 10.9 Seconds (9.0-12.0)
--- NOTE | 2022-07-27 16:34 | Emergency Department Note ---
History of Present Illness General Chief complaint: Illness Stated complaint: SPITTING UP BLOOD Time Seen by Provider: 07/27/22 15:27 History of Present Illness Provider complaint: Hemoptysis Onset (ago): minute(s) (90) 81-year-old female presents emergency department for hemoptysis. Patient reports this occurred at 2 PM. She reports she is not on any blood thinners. She reports there is a history of lung cancer. Patient reports that she has no chest pain or difficulty breathing. No melena or hematochezia. No vaginal bleeding. No hematuria or dysuria. Home Medications Medication Instructions Recorded Confirmed Type cholecalciferol (vitamin D3) 25 25 mcg PO DAILY 05/13/20 07/27/22 History mcg (1,000 unit) tablet (Vitamin D3) clonazepam 0.5 mg tablet 0.5 mg PO BID 05/13/20 07/27/22 History diltiazem HCl 180 mg 180 mg PO DAILY 05/13/20 07/27/22 History capsule,extended release 24 hr fluticasone propionate 50 2 spray intranasal DAILY 05/13/20 07/27/22 History mcg/actuation nasal spray,suspension gabapentin 300 mg capsule 300 mg PO HS 05/13/20 07/27/22 History hydralazine 10 mg tablet 10 mg PO TID 05/13/20 07/27/22 History losartan 50 mg tablet 50 mg PO DAILY 05/13/20 07/27/22 History rosuvastatin 5 mg tablet 5 mg PO DAILY 05/13/20 07/27/22 History fluticasone 250 mcg-salmeterol 50 1 ea inhalation [facility]HS 06/18/22 07/27/22 History mcg/dose blistr powdr for inhalation [id number]-mdc C-Mn 500 1 cap PO DAILY 06/18/22 07/27/22 History mg-400 mg capsule (Glucosamine Chondroitin Maximum Strength) omega 3-udp-mhd-fish oil 1,000 mg 1 cap PO DAILY 06/18/22 07/27/22 History (120 mg-180 mg) capsule (Fish Oil) Allergies Allergy/AdvReac Type Severity Reaction Status Date / Time No Known Allergies Allergy Unknown Verified 05/13/20 20:17 Past Med/Surg History Medical History Chronic hyponatremia COPD (chronic obstructive pulmonary disease) History of lung cancer "resected by Dr. Flowers [address] 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 Beliefs That Will Affect Care: None Current Living Situation: Alone Feels Safe at Home: Yes Assistive Devices: Cane Physical Exam Vital Signs Vital Signs - 24 hr 07/27/22 15:22 07/27/22 15:28 07/27/22 16:23 Temperature 36.3 C L Temperature Source Temporal Artery Scan Pulse Rate 88 79 79 Pulse Rate from SpO2 Sensor 76 Respiratory Rate 19 23 Respiratory Effort / Characteristics Non-Labored Spontaneous Respiratory Depth Normal Blood Pressure 189/84 H Blood Pressure Mean 119 Pulse Oximetry 96 97 96 Oxygen Delivery Method Room Air Sepsis Recent Fever Within 48 Hours No Sepsis New/Unexplained Change in Mental Status N/A Sepsis Action Taken by Nursing No Action Required 07/27/22 17:15 07/27/22 17:16 07/27/22 17:16 Temperature Temperature Source Pulse Rate 80 81 Pulse Rate from SpO2 Sensor 83 Respiratory Rate 25 H 24 Respiratory Effort / Characteristics Respiratory Depth Blood Pressure 173/92 H Blood Pressure Mean 119 Pulse Oximetry 95 Oxygen Delivery Method Sepsis Recent Fever Within 48 Hours Sepsis New/Unexplained Change in Mental Status Sepsis Action Taken by Nursing 07/27/22 17:30 07/27/22 17:30 07/27/22 17:53 Temperature Temperature Source Pulse Rate 77 Pulse Rate from SpO2 Sensor 76 Respiratory Rate 22 Respiratory Effort / Characteristics Respiratory Depth Blood Pressure 167/84 H 169/80 H Blood Pressure Mean 111 109 Pulse Oximetry 97 Oxygen Delivery Method Sepsis Recent Fever Within 48 Hours Sepsis New/Unexplained Change in Mental Status Sepsis Action Taken by Nursing 07/27/22 17:53 07/27/22 18:00 07/27/22 18:00 Temperature Temperature Source Pulse Rate 83 82 Pulse Rate from SpO2 Sensor 81 Respiratory Rate 22 21 Respiratory Effort / Characteristics Respiratory Depth Blood Pressure 171/78 H Blood Pressure Mean 109 Pulse Oximetry 96 Oxygen Delivery Method Sepsis Recent Fever Within 48 Hours Sepsis New/Unexplained Change in Mental Status Sepsis Action Taken by Nursing Physical Exam GENERAL: She is oriented to person, place, and time. She appears well-developed and well-nourished. She does not appear distressed. HENT: Exam performed. -Head: Normocephalic and atraumatic. CV: Normal rate, regular rhythm, normal heart sounds and intact distal pulses. There is no peripheral edema. Palpable radial pulses bue. PULM/CHEST: Diminished right breath sounds. -Chest Wall: She exhibits no tenderness. LYMPH: No cervical adenopathy. NEURO: Motor and sensation grossly intact. SKIN: Skin is warm and dry. She is not diaphoretic. PSYCH: She has a normal mood and affect. Behavior is normal. Judgment and thought content normal. Course Course 1526: The patient was evaluated in room C11. A complete history and physical exam was performed Cardiac monitoring: An order was placed for continuous cardiac monitoring. The monitor shows a rate of 80 with sinus rhythm interpreted by me External medical records reviewed. Patient has a history of lung cancer and a history of a lobectomy on the right lung. Discharge summary from June 20 shows that the patient was shown to have a 3 cm left suprahilar lung mass. Per Dr. Brown's discharge summary the patient is not interested in any further treatment if the lesion would be malignant. 184: Vital signs stable. Labs within normal limits. Imaging does show Left hilar/left upper mass suggestive of primary bronchogenic carcinoma now measuring up to 4.6 cm. I had a long discussion with the patient and her family and the patient now states she is possibly interested in getting treatment for her lung cancer because she does not want to have hemoptysis again. Discussed the case with on-call pulmonology Dr. Jean Baptiste who states that the patient wants treatment for cancer to be admitted to the medicine team and he will see her in the morning for treatment options and diagnosis options. Physical hospitalist team were involved was made aware the patient and stated to admit to Dr. Brown Administered Medications Clonazepam (Clonazepam 0.5 Mg Tab) 0.5 mg PO BID ALLEY Stop: 08/26/22 20:59 Last Admin: 07/27/22 21:34 Dose: 0.5 mg Documented By: OO Fluticasone/Vilanterol (Fluticasone/Vilanterol 200/25mcg 14 Puffs/Inhaler) 1 puffs INH DAILY ALLEY Stop: 08/26/22 20:59 Last Admin: 07/27/22 21:41 Dose: Not Given Documented By: OO Gabapentin (Gabapentin 300 Mg Cap) 300 mg PO HS ALLEY Stop: 08/26/22 20:59 Last Admin: 07/27/22 21:36 Dose: 300 mg Documented By: OO Hydralazine HCl (Hydralazine 10 Mg Tab) 10 mg PO TID ALLEY Stop: 08/26/22 20:59 Last Admin: 07/27/22 21:36 Dose: 10 mg Documented By: OO Discontinued Medications Ioversol (Optiray 320 500ml) 119 ml IV ONCE ONE Stop: 07/27/22 17:08 Last Admin: 07/27/22 17:09 Dose: 119 ml Documented By: RHONDA Medical Decision Making Laboratory Data Attestation: I reviewed the patient's lab results. 07/27/22 15:55 07/27/22 15:55 Lab Results 07/27/22 07/27/22 07/27/22 Range/Units 15:50 15:55 15:55 WBC 9.48 (4.8-10.8) K/ul RBC 4.34 (4.20-5.40) M/uL Hgb 11.0 L (12.0-16.0) g/dl Hct 34.1 L (37.0-47.0) % MCV 78.6 L (80.0-100.0) fL MCH 25.3 (25.0-34.0) pg MCHC 32.3 (32.0-36.0) g/dL RDW Std Deviation 49.9 H (36.4-46.3) fL RDW Coeff of Denis 17.4 H (11.5-14.5) % Plt Count 366 (130-400) K/uL MPV 9.3 L (9.4-12.4) fL Immature Gran % (Auto) 0.3 % Neut % (Auto) 67.3 % Lymph % (Auto) 20.6 % [place] % (Auto) 9.9 % Eos % (Auto) 1.2 % Baso % (Auto) 0.7 % Neut # (Auto) 6.38 (1.40-6.50) K/uL Lymph # (Auto) 1.95 (1.2-3.4) K/uL [place] # (Auto) 0.94 H (0.11-0.59) K/uL Eos # (Auto) 0.11 (0-0.50) K/uL Baso # (Auto) 0.07 (0-0.2) K/uL Immature Gran # (Auto) 0.03 (0.01-0.20) K/uL PT (9.0-12.0) Seconds INR (0.9-1.1) APTT (21.0-31.0) Seconds PTT Ratio Sodium 136 (136-145) mmol/L Potassium 3.9 (3.5-5.1) mmol/L Chloride 101 (98-107) mmol/L Carbon Dioxide 28 (21-32) mmol/L Anion Gap 7 (3-11) BUN 14 (6-23) mg/dl Creatinine 0.69 (0.6-1.2) mg/dl Est Cr Clr Drug Dosing 63.3 ml/min Est GFR ( Amer) 94.6 ml/min Est GFR (Non-Af Amer) 81.6 ml/min BUN/Creatinine Ratio 20.3 H (10-20) Glucose 95 (70-99(Fasting)) mg/dl Calcium 9.5 (8.5-10.1) mg/dl Troponin I High Sens 7.5 (0-14) pg/ml Lipase 23 (11-82) U/L SARS-CoV-2, RNA, NAAT NEGATIVE (NEGATIVE) 07/27/22 Range/Units 15:55 WBC (4.8-10.8) K/ul RBC (4.20-5.40) M/uL Hgb (12.0-16.0) g/dl Hct (37.0-47.0) % MCV (80.0-100.0) fL MCH (25.0-34.0) pg MCHC (32.0-36.0) g/dL RDW Std Deviation (36.4-46.3) fL RDW Coeff of Denis (11.5-14.5) % Plt Count (130-400) K/uL MPV (9.4-12.4) fL Immature Gran % (Auto) % Neut % (Auto) % Lymph % (Auto) % [place] % (Auto) % Eos % (Auto) % Baso % (Auto) % Neut # (Auto) (1.40-6.50) K/uL Lymph # (Auto) (1.2-3.4) K/uL [place] # (Auto) (0.11-0.59) K/uL Eos # (Auto) (0-0.50) K/uL Baso # (Auto) (0-0.2) K/uL Immature Gran # (Auto) (0.01-0.20) K/uL PT 10.9 (9.0-12.0) Seconds INR 1.0 (0.9-1.1) APTT 33.3 H (21.0-31.0) Seconds PTT Ratio 1.2 Sodium (136-145) mmol/L Potassium (3.5-5.1) mmol/L Chloride (98-107) mmol/L Carbon Dioxide (21-32) mmol/L Anion Gap (3-11) BUN (6-23) mg/dl Creatinine (0.6-1.2) mg/dl Est Cr Clr Drug Dosing ml/min Est GFR ( Amer) ml/min Est GFR (Non-Af Amer) ml/min BUN/Creatinine Ratio (10-20) Glucose (70-99(Fasting)) mg/dl Calcium (8.5-10.1) mg/dl Troponin I High Sens (0-14) pg/ml Lipase (11-82) U/L SARS-CoV-2, RNA, NAAT (NEGATIVE) Imaging Data Attestation: I personally reviewed and interpreted this imaging study as follows: Radiologist's Impression: Chest X-Ray 07/27/22 15:28 XR chest 1V portable HISTORY: 81 years-old Female Chest pain, nonspecific acute chest pain COMPARISON: 06/17/2022 TECHNIQUE: AP view of the chest FINDINGS: Cardiac silhouette is enlarged. No pneumothorax, pleural effusion, overt pulmonary edema or lobar airspace consolidation. Spiculated irregular 3.7 cm left suprahilar nodule was previously measured at 3 cm. Emphysema with chronic interstitial coarsening. Degenerative changes of the shoulders and spine. IMPRESSION: 1. Emphysema without acute process. 2. Spiculated irregular nodular opacity of the left suprahilar lung is redemonstrated, again suspicious for primary bronchogenic carcinoma. 3. Cardiomegaly. ACT 112: Negative or not required by law. The above report was generated using voice recognition software. It may contain grammatical, syntax or spelling errors. Electronically signed by: Jony Segura M.D. 07/27/2022 4:25 PM Chest CTA 07/27/22 15:35 CT angio chest PE protocol CT DOSE: 380.80 mGy.cm HISTORY: 81 years-old Female with ro pe. Acute shortness of breath with he moptysis TECHNIQUE: Multiple CTA images of the chest were obtained after the intravenous administration of 119 ml Optiray. Coronal and sagittal MIPS were obtained from the axial data set and were submitted for review. All measurements were obtained according to NASCET criteria. A dose lowering technique was utilized adhering to the principles of ALARA. COMPARISON: Chest radiograph of same day and also 06/17/2022, chest CT 09/02/2019 FINDINGS: CTA: Mild cardiomegaly. No pericardial effusion. Extensive coronary artery calcifications. Atherosclerosis of the aorta without aneurysm or dissection. Dilation of the pulmonary arteries suggestive of pulmonary arterial hypertensio n. No pulmonary emboli are identified. CT CHEST: Unremarkable thyroid. Pathologic AP window lymphadenopathy measures up to 4.1 x 2.0 x 2.1 cm on image 201. This is contiguous with irregular and spiculated soft tissue attenuating left upper lobe/left hilar mass which measures 3.5 x 3.7 x 4.6 cm on image 200 of series 4. Moderate pulmonary emphysema with bronchial wall thickening. Mild segmental bibasilar atelectasis. Stable benign 5 mm nodule of the left lower lobe. Stable benign 4 mm solid nodule of the right lower lobe on image 108. Prior right upper lobectomy. Stable likely benign 6 mm nodule of the right lung on image 154. Central airways are patent. No acute process of the imaged upper abdomen. Mild hepatic steatosis suggested. No acute fracture. Degenerative changes of the spine and shoulders. IMPRESSION: 1. Left hilar/left upper lobe mass suggestive of primary bronchogenic carcinoma measures up to approximately 4.6 cm. 2. The pulmonary mass is contiguous with metastatic AP window lymphadenopathy. 3. Emphysema with prior right upper lobectomy. 4. No pulmonary emboli identified. 5. Stable benign subcentimeter solid pulmonary nodules. ACT 112: Negative or not required by law. The above report was generated using voice recognition software. It may contain grammatical, syntax or spelling errors. Electronically signed by: Jony Segura M.D. 07/27/2022 5:49 PM ECG Data Attestation: I personally reviewed and interpreted this ECG as follows: Indication: + other (hemoptysis) Rate (beats per minute): 78 Rhythm: + normal sinus ECG Intervals/blocks: + First degree AV block, + Normal QRS and + Normal QT-c ECG ST segments: + Normal ST segments [facility] Narrative 1527: The patient was evaluated in room C11. A complete history and physical exam was performed Cardiac monitoring: An order was placed for continuous cardiac monitoring. The monitor shows a rate of 80 with sinus rhythm interpreted by me External medical records reviewed. Patient has a history of lung cancer and a history of a lobectomy on the right lung. Discharge summary from June 20 shows that the patient was shown to have a 3 cm left suprahilar lung mass. Per Dr. Brown's discharge summary the patient is not interested in any further treatment if the lesion would be malignant. 184: Vital signs stable. Labs within normal limits. Imaging does show Left hilar/left upper mass suggestive of primary bronchogenic carcinoma now measuring up to 4.6 cm. I had a long discussion with the patient and her family and the patient now states she is possibly interested in getting treatment for her lung cancer because she does not want to have hemoptysis again. Discussed the case with on-call pulmonology Dr. Jean Baptiste who states that the patient wants treatment for cancer to be admitted to the medicine team and he will see her in the morning for treatment options and diagnosis options. Physical hospitalist team were involved was made aware the patient and stated to admit to Dr. Brown Impression & Plan Hemoptysis, Lung mass Discharge Plan Visit Data Chief Complaint: Illness Stated Complaint: SPITTING UP BLOOD ED Provider: Butch Gould Discharge Problem: Hemoptysis, Lung mass Patient Disposition: Admitted As Inpatient Discharge Instructions Interventions: ED Discharge Assessment Last Done: 07/27/22 20:17
[2022-07-27 16:47] LABS: Basophils # (auto) 0.07 K/uL (0-0.2); Basophils % (auto) 0.7 %; Eosinophils # (auto) 0.11 K/uL (0-0.50); Eosinophils % (auto) 1.2 %; Hematocrit (blood only) 34.1 % (37.0-47.0); Immature Granulocytes # (auto) 0.03 K/uL (0.01-0.20); Immature Granulocytes % (auto) 0.3 %; Lymphocytes # (auto) 1.95 K/uL (1.2-3.4); Lymphocytes % (auto) 20.6 %; Mean Corpuscular Hemoglobin 25.3 pg (25.0-34.0); Mean Corpuscular Hgb Conc 32.3 g/dL (32.0-36.0); Mean Corpuscular Volume 78.6 fL (80.0-100.0); Mean Platelet Volume 9.3 fL (9.4-12.4); Monocytes # (auto) 0.94 K/uL (0.11-0.59); Monocytes % (auto) 9.9 %; Neutrophils # (auto) 6.38 K/uL (1.40-6.50); Neutrophils % (auto) 67.3 %; Platelet Count 366 K/uL (130-400); RDW Coefficient of Variation 17.4 % (11.5-14.5); RDW Standard Deviation 49.9 fL (36.4-46.3); Red Blood Count 4.34 M/uL (4.20-5.40); White Blood Count 9.48 K/ul (4.8-10.8)
[2022-07-27 17:00] LABS: BUN Creatinine Ratio 20.3 (10-20); Calcium 9.5 mg/dl (8.5-10.1); Creatinine Clr Calc Pharmacy 63.3 ml/min; Est GFR (African American) 94.6 ml/min; Est GFR (Non-African American) 81.6 ml/min; Potassium 3.9 mmol/L (3.5-5.1)
[2022-07-27 17:07] LABS: Troponin I High Sensitivity 7.5 pg/ml (0-14)
[2022-07-27] MEDS ORDERED: OPTIRAY 320 500ml IV ONE (17:07)
--- NOTE | 2022-07-27 17:51 | CT Scan Report ---
CT angio chest PE protocol CT DOSE: 380.80 mGy.cm HISTORY: 81 years-old Female with ro pe. Acute shortness of breath with hemoptysis TECHNIQUE: Multiple CTA images of the chest were obtained after the intravenous administration of 119 ml Optiray. Coronal and sagittal MIPS were obtained from the axial data set and were submitted for review. All measurements were obtained according to NASCET criteria. A dose lowering technique was u tilized adhering to the principles of ALARA. COMPARISON: Chest radiograph of same day and also 06/17/2022, chest CT 09/02/2019 FINDINGS: CTA: Mild cardiomegaly. No pericardial effusion. Extensive coronary artery calcifications. Atherosclerosis of the aorta without aneurysm or dissection. Dilation of the pulmonary arteries suggestive of pulmon cristina arterial hypertension. No pulmonary emboli are identified. CT CHEST: Unremarkable thyroid. Pathologic AP window lymphadenopathy measures up to 4.1 x 2.0 x 2.1 cm on image 201. This is contiguous with irregular and spiculated soft tissue attenuating left upper lobe/left h ilar mass which measures 3.5 x 3.7 x 4.6 cm on image 200 of series 4. Moderate pulmonary emphysema wi th bronchial wall thickening. Mild segmental bibasilar atelectasis. Stable benign 5 mm nodule of the left lower lobe. Stable benign 4 mm solid nodule of the right lower lobe on image 108. Prior right up per lobectomy. Stable likely benign 6 mm nodule of the right lung on image 154. Central airways are p atent. No acute process of the imaged upper abdomen. Mild hepatic steatosis suggested. No acute fracture. De generative changes of the spine and shoulders. IMPRESSION: 1. Left hilar/left upper lobe mass suggestive of primary bronchogenic carcinoma measures up to approx imately 4.6 cm. 2. The pulmonary mass is contiguous with metastatic AP window lymphadenopathy. 3. Emphysema with prior right upper lobectomy. 4. No pulmonary emboli identified. 5. Stable benign subcentimeter solid pulmonary nodules. ACT 112: Negative or not required by law. The above report was generated using voice recognition software. It may contain grammatical, syntax o r spelling errors. Electronically signed by: Jony Segura M.D. 07/27/2022 5:49 PM
--- NOTE | 2022-07-27 19:34 | History & Physical Report ---
Date of Service July 27, 2022 Assessment & Plan (1) Hemoptysis: (2) Lung mass: (3) History of lung cancer: Plan: Past medical history of right upper lobectomy for lung cancer in 2007 followed by chemotherapy. History of smoking Presents with 1 episode of hemoptysis Hemoglobin is stable at 11. No complaint of cough or shortness of breath. No dizziness. CT angio shows left hilar/left upper lobe mass suggestive of primary bronchogenic carcinoma measuring 4.6 cm; masses contiguous with metastatic AP window lymphadenopathy. Plan; - Admit to telemetry; monitor for any signs of hemoptysis, shortness of breath. Pulmonology consult for evaluation of left upper lobe mass. N.p.o. from midnight for possible procedure No anticoagulation Other conditions: Chronic hyponatremia- Na of 136; continue fluid restriction 1500ml. Hypertension- continue cardizem, hydaralzine , losartan. HLD- rosuvastatin Generalized anxiety disordercontinue Leland Code Status DNR/DNI; discussed with patient. DVT prophylaxis SCDs History of Present Illness Chief Complaint: Hemoptysis 1 episode Primary Care Provider: Oriana Santizo DO Past medical history of Stage 1b right lung adenocarcinoma s/p right upper lobectomy with 4 cycles of chemotherapy in 2007(as per chart review) , COPD, hypertension, and generalized anxiety disorder. Recent admission in May 2022 with confusion. Was found to have hyponatremia. Chest x-ray at that time showed 3 cm left suprahilar opacity. Per note, patient was recommended to undergo CT chest; declined any further work-up at that time. Patient presents to the hospital with 1 episode of hematemesis around 2 PM; reports the hemoptysis was about size of her "thumb", denies any further episodes. She denies any other episode of cough. She denies any chest pain, shortness of breath, fever or dizziness. Patient has history of smoking; 1 pack/day for 20 years; she quit smoking in 2019. She lives alone; is independent of all her ADLs. She has a daughter and a son who live close by. They were also present at the time of the interview. On arrival to the ED, patient is hemodynamically stable, saturating well in room air. Her hemoglobin is 11.0; similar to her previous hemoglobin. Her sodium is 136. CTA PE protocol was done which showed left hilar/left upper lobe mass suggestive of primary bronchogenic carcinoma measuring 4.6 cm; masses contiguous with metastatic AP window lymphadenopathy. She was also found to have emphysema with prior right upper lobectomy. Findings of the CT scan was discussed with her. As per note, patient did not want to work-up during her last admission. However, patient is very much concerned regarding the CT findings. She is interested in work-up and treatment if is indicated. Patient is agreeable to be admitted to the hospital for closer monitoring and evaluation. Allergies Allergy/AdvReac Type Severity Reaction Status Date / Time No Known Allergies Allergy Unknown Verified 05/13/20 20:17 Home Medications Medication Instructions Recorded Confirmed Type cholecalciferol (vitamin D3) 25 25 mcg PO DAILY 05/13/20 06/18/22 History mcg (1,000 unit) tablet (Vitamin D3) clonazepam 0.5 mg tablet 0.5 mg PO BID 05/13/20 06/18/22 History diltiazem HCl 180 mg 180 mg PO DAILY 05/13/20 06/18/22 History capsule,extended release 24 hr fluticasone propionate 50 2 spray intranasal DAILY 05/13/20 06/18/22 History mcg/actuation nasal spray,suspension gabapentin 300 mg capsule 300 mg PO AMHS 05/13/20 06/18/22 History hydralazine 10 mg tablet 10 mg PO TID 05/13/20 06/18/22 History losartan 50 mg tablet 50 mg PO DAILY 05/13/20 06/18/22 History rosuvastatin 5 mg tablet 5 mg PO DAILY 05/13/20 06/18/22 History fluticasone 250 mcg-salmeterol 50 1 ea inhalation AMHS 06/18/22 06/18/22 History mcg/dose blistr powdr for inhalation sgxyknaswro-rqvydcdcn-jkm C-Mn 500 1 cap PO DAILY 06/18/22 06/18/22 History mg-400 mg capsule (Glucosamine Chondroitin Maximum Strength) omega 2-hyx-zny-fish oil 1,000 mg 1 cap PO DAILY 06/18/22 06/18/22 History (120 mg-180 mg) capsule (Fish Oil) Past Med/Surg History Medical History Chronic hyponatremia COPD (chronic obstructive pulmonary disease) History of lung cancer "resected by Dr. Flowers [address] Mcleod ." HTN (hypertension) Tobacco use disorder, moderate, in sustained remission Social History Smoking Status: Never smoker Preferred Language: Latvian Communication Ability: Effective Beliefs That Will Affect Care: Mormonism Feels Safe at Home: Yes Assistive Devices: Cane and Walker Review of Systems Review of Systems: All systems reviewed & are unremarkable except as noted in Subjective Physical Exam Physical Exam: Constitutional: Awake, alert orient x3; not in any distress. Neck: trachea midline, no thyromegaly normal visual inspection Respiratory: vesicular breath sound; no added sound. Cardiovascular: RRR, no murmur, no edema Vessels: no JVD or carotid bruit Chest: normal inspection of chest Abdomen: normal bowel sounds, soft, nontender, no hepatosplenomegaly Musculoskeletal: no cyanosis or clubbing, extremities motor strength 5/5 Skin: no rashes, warm and dry normal turgor Neurologic: PERRL, EOMI, accommodation nl, no face palsy, no dysarthria CN's II- XI intact bilaterally and moves all extremities Psychiatric: A+Ox3, euthymic affect Results & Data Results & Data ([facility]) Vital Signs (Past 12 Hours) Vital Signs Temp Pulse Resp BP Pulse Ox O2 Del Method 07/27/22 18:00 82 21 96 07/27/22 18:00 171/78 H 07/27/22 17:53 83 22 07/27/22 17:53 169/80 H 07/27/22 17:30 77 22 97 07/27/22 17:30 167/84 H 07/27/22 17:16 173/92 H 07/27/22 17:16 81 24 95 07/27/22 17:15 80 25 H 07/27/22 16:23 79 23 96 07/27/22 15:28 79 97 07/27/22 15:22 36.3 C L 88 19 189/84 H 96 Room Air Laboratory Results Laboratory Results WBC 9.48 K/ul (4.8-10.8) 07/27/22 15:55 RBC 4.34 M/uL (4.20-5.40) 07/27/22 15:55 Hgb 11.0 g/dl (12.0-16.0) L 07/27/22 15:55 Hct 34.1 % (37.0-47.0) L 07/27/22 15:55 MCV 78.6 fL (80.0-100.0) L 07/27/22 15:55 MCH 25.3 pg (25.0-34.0) 07/27/22 15:55 MCHC 32.3 g/dL (32.0-36.0) 07/27/22 15:55 RDW Std Deviation 49.9 fL (36.4-46.3) H 07/27/22 15:55 RDW Coeff of Denis 17.4 % (11.5-14.5) H 07/27/22 15:55 Plt Count 366 K/uL (130-400) 07/27/22 15:55 MPV 9.3 fL (9.4-12.4) L 07/27/22 15:55 Immature Gran % (Auto) 0.3 % 07/27/22 15:55 Neut % (Auto) 67.3 % 07/27/22 15:55 Lymph % (Auto) 20.6 % 07/27/22 15:55 [place] % (Auto) 9.9 % 07/27/22 15:55 Eos % (Auto) 1.2 % 07/27/22 15:55 Baso % (Auto) 0.7 % 07/27/22 15:55 Neut # (Auto) 6.38 K/uL (1.40-6.50) 07/27/22 15:55 Lymph # (Auto) 1.95 K/uL (1.2-3.4) 07/27/22 15:55 [place] # (Auto) 0.94 K/uL (0.11-0.59) H 07/27/22 15:55 Eos # (Auto) 0.11 K/uL (0-0.50) 07/27/22 15:55 Baso # (Auto) 0.07 K/uL (0-0.2) 07/27/22 15:55 Immature Gran # (Auto) 0.03 K/uL (0.01-0.20) 07/27/22 15:55 PT 10.9 Seconds (9.0-12.0) 07/27/22 15:55 INR 1.0 (0.9-1.1) 07/27/22 15:55 APTT 33.3 Seconds (21.0-31.0) H 07/27/22 15:55 PTT Ratio 1.2 07/27/22 15:55 Sodium 136 mmol/L (136-145) 07/27/22 15:55 Potassium 3.9 mmol/L (3.5-5.1) 07/27/22 15:55 Chloride 101 mmol/L (98-107) 07/27/22 15:55 Carbon Dioxide 28 mmol/L (21-32) 07/27/22 15:55 Anion Gap 7 (3-11) 07/27/22 15:55 BUN 14 mg/dl (6-23) 07/27/22 15:55 Creatinine 0.69 mg/dl (0.6-1.2) 07/27/22 15:55 Est Cr Clr Drug Dosing 63.3 ml/min 07/27/22 15:55 Est GFR ( Amer) 94.6 ml/min 07/27/22 15:55 Est GFR (Non-Af Amer) 81.6 ml/min 07/27/22 15:55 BUN/Creatinine Ratio 20.3 (10-20) H 07/27/22 15:55 Glucose 95 mg/dl (70-99(Fasting)) 07/27/22 15:55 Calcium 9.5 mg/dl (8.5-10.1) 07/27/22 15:55 Troponin I High Sens 7.5 pg/ml (0-14) 07/27/22 15:55 Lipase 23 U/L (11-82) 07/27/22 15:55 Impressions Chest X-Ray 07/27/22 15:28 XR chest 1V portable HISTORY: 81 years-old Female Chest pain, nonspecific acute chest pain COMPARISON: 06/17/2022 TECHNIQUE: AP view of the chest FINDINGS: Cardiac silhouette is enlarged. No pneumothorax, pleural effusion, overt pulmonary edema or lobar airspace consolidation. Spiculated irregular 3.7 cm left suprahilar nodule was previously measured at 3 cm. Emphysema with chronic interstitial coarsening. Degenerative changes of the shoulders and spine. IMPRESSION: 1. Emphysema without acute process. 2. Spiculated irregular nodular opacity of the left suprahilar lung is redemonstrated, again suspicious for primary bronchogenic carcinoma. 3. Cardiomegaly. ACT 112: Negative or not required by law. The above report was generated using voice recognition software. It may contain grammatical, syntax or spelling errors. Electronically signed by: Jony Segura M.D. 07/27/2022 4:25 PM Chest CTA 07/27/22 15:35 CT angio chest PE protocol CT DOSE: 380.80 mGy.cm HISTORY: 81 years-old Female with ro pe. Acute shortness of breath with hemoptysis TECHNIQUE: Multiple CTA images of the chest were obtained after the intravenous administration of 119 ml Optiray. Coronal and sagittal MIPS were obtained from the axial data set and were submitted for review. All measurements were obtained according to NASCET criteria. A dose lowering technique was utilized adhering to the principles of ALARA. COMPARISON: Chest radiograph of same day and also 06/17/2022, chest CT 09/02/2019 FINDINGS: CTA: Mild cardiomegaly. No pericardial effusion. Extensive coronary artery calcifications. Atherosclerosis of the aorta without aneurysm or dissection. Dilation of the pulmonary arteries suggestive of pulmonary arterial hypertension. No pulmonary emboli are identified. CT CHEST: Unremarkable thyroid. Pathologic AP window lymphadenopathy measures up to 4.1 x 2.0 x 2.1 cm on image 201. This is contiguous with irregular and spiculated soft tissue attenuating left upper lobe/left hilar mass which measures 3.5 x 3.7 x 4.6 cm on image 200 of series 4. Moderate pulmonary emphysema with bronchial wall thickening. Mild segmental bibasilar atelectasis. Stable benign 5 mm nodule of the left lower lobe. Stable benign 4 mm solid nodule of the right lower lobe on image 108. Prior right upper lobectomy. Stable likely benign 6 mm nodule of the right lung on image 154. Central airways are patent. No acute process of the imaged upper abdomen. Mild hepatic steatosis suggested. No acute fracture. Degenerative changes of the spine and shoulders. IMPRESSION: 1. Left hilar/left upper lobe mass suggestive of primary bronchogenic carcinoma measures up to approximately 4.6 cm. 2. The pulmonary mass is contiguous with metastatic AP window lymphadenopathy. 3. Emphysema with prior right upper lobectomy. 4. No pulmonary emboli identified. 5. Stable benign subcentimeter solid pulmonary nodules. ACT 112: Negative or not required by law. The above report was generated using voice recognition software. It may contain grammatical, syntax or spelling errors. Electronically signed by: Jony Segura M.D. 07/27/2022 5:49 PM Code Status & VTE Plan VTE Prophylaxis Plan VTE Prophylaxis will be ordered: Yes
[2022-07-27] MEDS: clonazePAM 0.5 MG TAB PO SCH (21:34)
[2022-07-27] MEDS: hydrALAZINE 10 MG TAB PO SCH (21:36)
[2022-07-27] MEDS: FLUTICASONE/VILANTEROL 200/25MCG 14 PUFFS/INHALER INH SCH ×2 (21:36→21:41)
[2022-07-27] MEDS: GABAPENTIN 300 MG CAP PO SCH (21:36)
[2022-07-27] MEDS: ACETAMINOPHEN 325 MG TAB PO PRN (23:20)
[2022-07-28] MEDS: FLUTICASONE/SALMETEROL 250/50 (ADVAIR) 14 PUFF/1 INHALER INH SCH ×3 (00:24→21:25)
[2022-07-28 06:18] LABS: Hematocrit (blood only) 32.7 % (37.0-47.0); Hemoglobin 10.6 g/dl (12.0-16.0); Mean Corpuscular Hemoglobin 25.2 pg (25.0-34.0); Mean Corpuscular Hgb Conc 32.4 g/dL (32.0-36.0); Mean Corpuscular Volume 77.9 fL (80.0-100.0); Mean Platelet Volume 9.5 fL (9.4-12.4); Platelet Count 361 K/uL (130-400); RDW Coefficient of Variation 17.3 % (11.5-14.5); RDW Standard Deviation 49.2 fL (36.4-46.3); White Blood Count 8.82 K/ul (4.8-10.8)
[2022-07-28 06:22] LABS: BUN Creatinine Ratio 17.3 (10-20); Calcium 9.9 mg/dl (8.5-10.1); Creatinine Clr Calc Pharmacy 57.2 ml/min; Est GFR (African American) 86.6 ml/min; Est GFR (Non-African American) 74.8 ml/min; Potassium 3.9 mmol/L (3.5-5.1)
[2022-07-28 06:29] LABS: Troponin I High Sensitivity 8.6 pg/ml (0-14)
[2022-07-28] MEDS: ROSUVASTATIN CALCIUM 5 MG TAB PO SCH (08:39)
[2022-07-28] MEDS: hydrALAZINE 10 MG TAB PO SCH ×3 (08:39→21:24)
[2022-07-28] MEDS: dilTIAZem HCL 180 MG CAPCR PO SCH (08:39)
[2022-07-28] MEDS: LOSARTAN POTASSIUM 50 MG TAB PO SCH (08:39)
[2022-07-28] MEDS: clonazePAM 0.5 MG TAB PO SCH ×2 (08:40→21:24)
--- NOTE | 2022-07-28 10:36 | Electrocardiogram Report ---
Test Reason : Blood Pressure : / mmHG Vent. Rate : 078 BPM Atrial Rate : 078 BPM P-R Int : 234 ms QRS Dur : 082 ms QT Int : 370 ms P-R-T Axes : 051 053 081 degrees QTc Int : 421 ms Sinus rhythm with 1st degree A-V block Otherwise normal ECG When compared with ECG of 17-JUN-2022 16:44, No significant change was found Confirmed by Oziel Perez ([id number]) on 07/28/2022 10:36:19 AM Referred By: REFERRED SELF Confirmed By:Oziel Perez
--- NOTE | 2022-07-28 10:44 | Electrocardiogram Report ---
Test Reason : Blood Pressure : / mmHG Vent. Rate : 068 BPM Atrial Rate : 068 BPM P-R Int : 252 ms QRS Dur : 080 ms QT Int : 398 ms P-R-T Axes : 080 053 086 degrees QTc Int : 423 ms Poor data quality, interpretation may be adversely affected Sinus rhythm with 1st degree A-V block Otherwise normal ECG When compared with ECG of 27-JUL-2022 15:46, (unconfirmed) No significant change was found Confirmed by Oziel Perez ([id number]) on 07/28/2022 10:43:58 AM Referred By: REFERRED SELF Confirmed By:Oziel Perez
--- NOTE | 2022-07-28 10:45 | Electrocardiogram Report ---
Test Reason : Blood Pressure : / mmHG Vent. Rate : 068 BPM Atrial Rate : 068 BPM P-R Int : 228 ms QRS Dur : 076 ms QT Int : 400 ms P-R-T Axes : 001 056 091 degrees QTc Int : 425 ms Sinus rhythm with 1st degree A-V block Nonspecific ST and T wave abnormality Abnormal ECG When compared with ECG of 28-JUL-2022 00:00, (unconfirmed) ST now depressed in Anterior leads Confirmed by Oziel Perez ([id number]) on 07/28/2022 10:45:07 AM Referred By: REFERRED SELF Confirmed By:Oziel ePrez
--- NOTE | 2022-07-28 11:49 | Pulmonary Consultation ---
Date of Consultation July 28, 2022 Assessment & Plan (1) Lung mass: (2) Hemoptysis: (3) History of lung cancer: (4) COPD with emphysema: (5) Ex-smoker: (6) Multiple pulmonary nodules: (7) LAD (lymphadenopathy), mediastinal: Plan CT chest 07/27/2022 personally reviewed: Centrilobular emphysema appreciated bilaterally, right upper lobectomy Left upper lobe 3.7 cm x 3.5 cm pulmonary mass with para-aortic mediastinal lymphadenopathy 5 mm left lower lobe pulmonary nodule, 4 mm right lower lobe pulmonary nodule (stable from before) Linear scarring of the right lower lobe -- Left upper lobe mass with mediastinal lymphadenopathy Masses new compared to CT chest which was done August 2019 The possibility of it being lung cancer is very high in somebody with smokers Navigational bronchoscopy will be pursued -- Hemoptysis Likely from underlying malignancy Continue with antitussive medication [id number] --COPD with emphysema On Advair 250-50 at home We recommended to be changed to Anoro instead on discharge --History of adenocarcinoma Stage Ib s/p right upper lobectomy and chemotherapy in 2007 Plan: Plan is to have navigational bronchoscopy with EBUS tomorrow Risk and benefit of the procedure explained to the patient in depth. She understands and agrees to go ahead. Keep patient n.p.o. postmidnight. Avoid any blood thinners OR and RT has been made aware Will need PFT as an outpatient Recommend MRI of the brain to rule out mets Case was discussed with Please note the above document was generated using voice recognition software. It may contain grammatical, syntax or spelling errors.Any formal questions or concerns about the content, text or information contained within the body of this dictation should be directly addressed to the provider for clarification. History of Present Illness Attending Physician: Brian Culver MD History of Present Illness 81-year-old female presented to the hospital with complaints of cough and blood in the sputum Past medical history: Stage Ib adenocarcinoma right upper lobe s/p right upper lobectomy and 4 cycles of chemotherapy in 2007, COPD, hypertension, anxiety Pulmonary consulted for left upper lobe mass In May 2022 patient had a chest x-ray done which showed a mass in the left upper lobe but at that time she refused to do any work-up including a CT chest. At the time of examination patient was saturating 97% on room air. Not in any acute distress Patient's son was also in the room at the time of examination Patient denies any headache, no blurry vision No nausea vomiting Patient had 1 bout of cough with dark red tinge to it. She did not have any bouts of hemoptysis is coming to the hospital When it comes to her shortness of breath she states she is able to do her day-to-day activities without any issues A moderate BrezTri does get short of breath which is mostly huffing and puffing Denies any chest pain, no chest tightness, no palpitation. No headache, no blurry vision No night sweats denies any unintentional weight loss No fever or chills Social history: Approximately [id number] smoking history quit more than 20 years ago, worked in a chemical factory for 7 years. Did not wear mask Allergies Allergy/AdvReac Type Severity Reaction Status Date / Time No Known Allergies Allergy Unknown Verified 05/13/20 20:17 Home Medications Medication Instructions Recorded Confirmed Type cholecalciferol (vitamin D3) 25 25 mcg PO DAILY 05/13/20 07/27/22 History mcg (1,000 unit) tablet (Vitamin D3) clonazepam 0.5 mg tablet 0.5 mg PO BID 05/13/20 07/27/22 History diltiazem HCl 180 mg 180 mg PO DAILY 05/13/20 07/27/22 History capsule,extended release 24 hr fluticasone propionate 50 2 spray intranasal DAILY 05/13/20 07/27/22 History mcg/actuation nasal spray,suspension gabapentin 300 mg capsule 300 mg PO HS 05/13/20 07/27/22 History hydralazine 10 mg tablet 10 mg PO TID 05/13/20 07/27/22 History losartan 50 mg tablet 50 mg PO DAILY 05/13/20 07/27/22 History rosuvastatin 5 mg tablet 5 mg PO DAILY 05/13/20 07/27/22 History fluticasone 250 mcg-salmeterol 50 1 ea inhalation AMHS 06/18/22 07/27/22 History mcg/dose blistr powdr for inhalation mgmslmixagz-yeirdawvn-djf C-Mn 500 1 cap PO DAILY 06/18/22 07/27/22 History mg-400 mg capsule (Glucosamine Chondroitin Maximum Strength) omega 1-vac-gsz-fish oil 1,000 mg 1 cap PO DAILY 06/18/22 07/27/22 History (120 mg-180 mg) capsule (Fish Oil) Patient History Medical History Chronic hyponatremia COPD (chronic obstructive pulmonary disease) History of lung cancer "resected by Dr. Flowers [address] Mcleod ." HTN (hypertension) Tobacco use disorder, moderate, in sustained remission Social History Smoking Status: Former smoker Hx Alcohol Use: No Hx Substance Use: No Preferred Language: Persian Communication Ability: Effective Instructor Traffic Safety Required: No Beliefs That Will Affect Care: None Current Living Situation: Alone Feels Safe at Home: Yes Assistive Devices: Cane and Walker Review of Systems Review of Systems: All systems reviewed & are unremarkable except as noted in HPI & below Physical Exam Physical Exam: Constitutional: No acute distress HEENT: EOMI, PERRLA Respiratory system: Decreased air entry bilaterally, no wheeze, no rhonchi, no crackles CVS: S1-S2 positive, positive 2 out of 6 systolic murmur appreciated at aorta Abdomen: Soft, nontender, nondistended, positive bowel sounds x4, obese Extremities: +2 pulses bilaterally radialis/ dorsalis pedis, no cyanosis, no edema Neuro: Awake alert oriented x3 Psych: Normal mood and affect G/U: No [place] Skin: no rashes, warm and dry Lymphatic: no cervical or axillary lymphadenopathy Results & Data Results & Data ([facility]) Vital Signs (Past 12 Hours) Vital Signs Temp Pulse Pulse Resp BP Pulse Ox O2 Del Method 07/28/22 10:00 Room Air 07/28/22 07:00 76 07/28/22 08:31 36.6 C 81 19 148/78 H 95 Room Air 07/28/22 06:07 79 07/28/22 02:55 36.9 C 72 143/80 H 96 Room Air Laboratory Results 07/28/22 05:15 07/28/22 05:15 PG Care Time/CCT Total # of Minutes Spent Total Time Spent with Patient: Total time spent is greater than 50% in coordination of care (as documented) at patient's floor/unit and/or counseling patient: Coding Level of Care Code 01860 INT INP/OBS CARE 3/75MIN Diagnoses Lung mass R91.8 Hemoptysis R04.2 History of lung cancer Z85.118 COPD with emphysema J43.9 Ex-smoker Z87.891 Multiple pulmonary nodules R91.8 LAD (lymphadenopathy), mediastinal R59.0
--- NOTE | 2022-07-28 12:43 | Hospitalist Progress Note ---
Date of Service July 28, 2022 Assessment & Plan (1) Hemoptysis: (2) Lung mass: (3) History of lung cancer: Plan: Past medical history of right upper lobectomy for lung cancer in 2007 followed by chemotherapy. History of smoking Presents with 1 episode of hemoptysis No more episode of hematemesis since admission. Hemoglobin 10.6 today; [address] angio shows left hilar/left upper lobe mass suggestive of primary bronchogenic carcinoma measuring 4.6 cm; masses contiguous with metastatic AP window lymphadenopathy. Plan; - monitor for any signs of hemoptysis, shortness of breath. Will start cosse-nhx-ceajw antitussive as per pulmonology recommendation. Patient to undergo bronchoscopy tomorrow AM. N.p.o. from midnight. MRI brain with and without contrast ordered to rule out mets. No anticoagulation Other conditions: Chronic hyponatremia- Na of 137; continue fluid restriction 1500ml. Hypertension- continue cardizem, hydaralzine , losartan. HLD- rosuvastatin Generalized anxiety disordercontinue Klonojarrell Code Status DNR/DNI; discussed with patient. DVT prophylaxis SCDs Admission and Anticipated Discharge Date Admission Date: July 27, 2022 Subjective Patient seen and examined at bedside. No more episode of hemoptysis. No cough or shortness of breath. Telemetry shows occasional PAC with compensatory pause; no other arrhythmia detected. Review of Systems Review of Systems: All systems reviewed & are unremarkable except as noted in Subjective Physical Exam Physical Exam: Constitutional: Awake, alert orient x3; not in any distress. Neck: trachea midline, no thyromegaly normal visual inspection Respiratory: vesicular breath sound; no added sound. Cardiovascular: RRR, no murmur, no edema Vessels: no JVD or carotid bruit Chest: normal inspection of chest Abdomen: normal bowel sounds, soft, nontender, no hepatosplenomegaly Musculoskeletal: no cyanosis or clubbing, extremities motor strength 5/5 Skin: no rashes, warm and dry normal turgor Neurologic: PERRL, EOMI, accommodation nl, no face palsy, no dysarthria CN's II- XI intact bilaterally and moves all extremities Psychiatric: A+Ox3, euthymic affect Results & Data Results & Data ([facility]) Vital Signs (Past 12 Hours) Vital Signs Temp Pulse Pulse Resp BP Pulse Ox O2 Del Method 07/28/22 11:59 36.6 C 70 18 152/72 H 95 Room Air 07/28/22 10:00 Room Air 07/28/22 07:00 76 07/28/22 08:31 36.6 C 81 19 148/78 H 95 Room Air 07/28/22 06:07 79 07/28/22 02:55 36.9 C 72 143/80 H 96 Room Air Laboratory Results Laboratory Results WBC 8.82 K/ul (4.8-10.8) 07/28/22 05:15 RBC 4.20 M/uL (4.20-5.40) 07/28/22 05:15 Hgb 10.6 g/dl (12.0-16.0) L 07/28/22 05:15 Hct 32.7 % (37.0-47.0) L 07/28/22 05:15 MCV 77.9 fL (80.0-100.0) L 07/28/22 05:15 MCH 25.2 pg (25.0-34.0) 07/28/22 05:15 MCHC 32.4 g/dL (32.0-36.0) 07/28/22 05:15 RDW Std Deviation 49.2 fL (36.4-46.3) H 07/28/22 05:15 RDW Coeff of Denis 17.3 % (11.5-14.5) H 07/28/22 05:15 Plt Count 361 K/uL (130-400) 07/28/22 05:15 MPV 9.5 fL (9.4-12.4) 07/28/22 05:15 Immature Gran % (Auto) 0.3 % 07/27/22 15:55 Neut % (Auto) 67.3 % 07/27/22 15:55 Lymph % (Auto) 20.6 % 07/27/22 15:55 [place] % (Auto) 9.9 % 07/27/22 15:55 Eos % (Auto) 1.2 % 07/27/22 15:55 Baso % (Auto) 0.7 % 07/27/22 15:55 Neut # (Auto) 6.38 K/uL (1.40-6.50) 07/27/22 15:55 Lymph # (Auto) 1.95 K/uL (1.2-3.4) 07/27/22 15:55 [place] # (Auto) 0.94 K/uL (0.11-0.59) H 07/27/22 15:55 Eos # (Auto) 0.11 K/uL (0-0.50) 07/27/22 15:55 Baso # (Auto) 0.07 K/uL (0-0.2) 07/27/22 15:55 Immature Gran # (Auto) 0.03 K/uL (0.01-0.20) 07/27/22 15:55 PT 10.9 Seconds (9.0-12.0) 07/27/22 15:55 INR 1.0 (0.9-1.1) 07/27/22 15:55 APTT 33.3 Seconds (21.0-31.0) H 07/27/22 15:55 PTT Ratio 1.2 07/27/22 15:55 Sodium 137 mmol/L (136-145) 07/28/22 05:15 Potassium 3.9 mmol/L (3.5-5.1) 07/28/22 05:15 Chloride 103 mmol/L (98-107) 07/28/22 05:15 Carbon Dioxide 28 mmol/L (21-32) 07/28/22 05:15 Anion Gap 6 (3-11) 07/28/22 05:15 BUN 13 mg/dl (6-23) 07/28/22 05:15 Creatinine 0.75 mg/dl (0.6-1.2) 07/28/22 05:15 Est Cr Clr Drug Dosing 57.2 ml/min 07/28/22 05:15 Est GFR ( Amer) 86.6 ml/min 07/28/22 05:15 Est GFR (Non-Af Amer) 74.8 ml/min 07/28/22 05:15 BUN/Creatinine Ratio 17.3 (10-20) 07/28/22 05:15 Glucose 91 mg/dl (70-99(Fasting)) 07/28/22 05:15 Calcium 9.9 mg/dl (8.5-10.1) 07/28/22 05:15 Troponin I High Sens 7.4 pg/ml (0-14) 07/28/22 10:48 Lipase 23 U/L (11-82) 07/27/22 15:55 SARS-CoV-2, RNA, NAAT NEGATIVE (NEGATIVE) 07/27/22 15:50 Impressions Chest X-Ray 07/27/22 15:28 XR chest 1V portable HISTORY: 81 years-old Female Chest pain, nonspecific acute chest pain COMPARISON: 06/17/2022 TECHNIQUE: AP view of the chest FINDINGS: Cardiac silhouette is enlarged. No pneumothorax, pleural effusion, overt pulmonary edema or lobar airspace consolidation. Spiculated irregular 3.7 cm left suprahilar nodule was previously measured at 3 cm. Emphysema with chronic interstitial coarsening. Degenerative changes of the shoulders and spine. IMPRESSION: 1. Emphysema without acute process. 2. Spiculated irregular nodular opacity of the left suprahilar lung is redemonstrated, again suspicious for primary bronchogenic carcinoma. 3. Cardiomegaly. ACT 112: Negative or not required by law. The above report was generated using voice recognition software. It may contain grammatical, syntax or spelling errors. Electronically signed by: Jony Segura M.D. 07/27/2022 4:25 PM Chest CTA 07/27/22 15:35 CT angio chest PE protocol CT DOSE: 380.80 mGy.cm HISTORY: 81 years-old Female with ro pe. Acute shortness of breath with hemoptysis TECHNIQUE: Multiple CTA images of the chest were obtained after the intravenous administration of 119 ml Optiray. Coronal and sagittal MIPS were obtained from the axial data set and were submitted for review. All measurements were obtained according to NASCET criteria. A dose lowering technique was utilized adhering to the principles of ALARA. COMPARISON: Chest radiograph of same day and also 06/17/2022, chest CT 09/02/2019 FINDINGS: CTA: Mild cardiomegaly. No pericardial effusion. Extensive coronary artery calcifications. Atherosclerosis of the aorta without aneurysm or dissection. Dilation of the pulmonary arteries suggestive of pulmonary arterial hypertension. No pulmonary emboli are identified. CT CHEST: Unremarkable thyroid. Pathologic AP window lymphadenopathy measures up to 4.1 x 2.0 x 2.1 cm on image 201. This is contiguous with irregular and spiculated soft tissue attenuating left upper lobe/left hilar mass which measures 3.5 x 3.7 x 4.6 cm on image 200 of series 4. Moderate pulmonary emphysema with bronchial wall thickening. Mild segmental bibasilar atelectasis. Stable benign 5 mm nodule of the left lower lobe. Stable benign 4 mm solid nodule of the right lower lobe on image 108. Prior right upper lobectomy. Stable likely benign 6 mm nodule of the right lung on image 154. Central airways are patent. No acute process of the imaged upper abdomen. Mild hepatic steatosis suggested. No acute fracture. Degenerative changes of the spine and shoulders. IMPRESSION: 1. Left hilar/left upper lobe mass suggestive of primary bronchogenic carcinoma measures up to approximately 4.6 cm. 2. The pulmonary mass is contiguous with metastatic AP window lymphadenopathy. 3. Emphysema with prior right upper lobectomy. 4. No pulmonary emboli identified. 5. Stable benign subcentimeter solid pulmonary nodules. ACT 112: Negative or not required by law. The above report was generated using voice recognition software. It may contain grammatical, syntax or spelling errors. Electronically signed by: Jony Segura M.D. 07/27/2022 5:49 PM
[2022-07-28] MEDS ORDERED: GADOBUTROL 7.5ML VIAL IV ONE (13:51)
--- NOTE | 2022-07-28 14:28 | Magnetic Resonance Report ---
MRI OF THE BRAIN COMBO CLINICAL HISTORY: Lung mass. Metastatic survey. COMPARISON STUDY: CT of the brain dated 06/17/2022. TECHNIQUE: MRI of the brain was performed utilizing various T1 and T2-weighted sequences in the axial , sagittal, and coronal planes. Contrast-enhanced sequences were acquired following the administratio n of 8 cc of Gadavist. FINDINGS: Brain parenchyma: There is age-related involutional change noting moderate subcortical and periventri cular microangiopathic disease. There is no hemorrhage or mass effect. There is no restricted diffusi on typical for acute ischemia. A punctate focus of apparent restricted diffusion in the high right pa rietal cortex on image #16 likely represents T2 shine through. No enhancing mass lesion is identified on the postcontrast images. Senior-white matter differentiation is preserved. No extra-axial fluid col lection is seen. The cerebellar tonsils are normal in configuration. Ventricles, sulci, and cisterns: Prominent secondary to involutional change. Pituitary and sella: Unremarkable. Intracranial vasculature: Normal flow voids are maintained at the skull base. Orbits: The bony orbits are grossly intact. Orbital contents are normal in appearance noting bilatera l ocular lens implants. Sinuses and mastoids: Retention cysts within the maxillary sinuses measuring 2.3 cm. There is trace m ucosal thickening within the maxillary antra. The remaining paranasal sinuses and mastoid air cells a re clear. Calvarium: Unremarkable. Cervical cord: Partially visualized cervical spinal cord is normal in morphology and signal intensity . IMPRESSION: 1. No acute intracranial abnormality is identified. 2. Specifically, there is no MRI evidence of intracranial metastatic disease. ACT 112: Negative or not required by law. Electronically signed by: Mahesh Sainz M.D. 07/28/2022 2:26 PM
[2022-07-28] MEDS: guaiFENesin/DEXTROM SYRUP 100MG/10MG 5ML UDC PO SCH ×2 (14:48→21:24)
[2022-07-28] MEDS: GABAPENTIN 300 MG CAP PO SCH (21:25)
[2022-07-28] MEDS: ACETAMINOPHEN 325 MG TAB PO PRN (21:46)
[2022-07-29] MEDS: guaiFENesin/DEXTROM SYRUP 100MG/10MG 5ML UDC PO SCH ×4 (01:31→21:21)
[2022-07-29 06:54] LABS: Ferritin 6.8 ng/ml (8-388)
--- NOTE | 2022-07-29 07:47 | Pulmonology Progress Note ---
Date of Service July 29, 2022 Assessment & Plan (1) Lung mass: (2) Hemoptysis: (3) History of lung cancer: (4) COPD with emphysema: (5) Ex-smoker: (6) Multiple pulmonary nodules: (7) LAD (lymphadenopathy), mediastinal: Plan CT chest 07/27/2022 personally reviewed: Centrilobular emphysema appreciated bilaterally, right upper lobectomy Left upper lobe 3.7 cm x 3.5 cm pulmonary mass with para-aortic mediastinal lymphadenopathy 5 mm left lower lobe pulmonary nodule, 4 mm right lower lobe pulmonary nodule (stable from before) Linear scarring of the right lower lobe -- Left upper lobe mass with mediastinal lymphadenopathy Masses new compared to CT chest which was done August 2019 The possibility of it being lung cancer is very high in somebody with smokers Navigational bronchoscopy will be pursued MRI brain negative 07/28/2022 -- Hemoptysis Likely from underlying malignancy Continue with antitussive medication [id number] --COPD with emphysema On Advair 250-50 at home We recommended to be changed to Anoro instead on discharge --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 She understands and agrees to go ahead. Consent signed, witnessed and put in the chart Will need PFT as an outpatient Case was discussed with Please note the above document was generated using voice recognition software. It may contain grammatical, syntax or spelling errors.Any formal questions or concerns about the content, text or information contained within the body of this dictation should be directly addressed to the provider for clarification. Admission and Anticipated Discharge Date Admission Date: July 27, 2022 Subjective Patient seen and examined at bedside. No acute distress, noticed events overnight. Denies any chest pain No more hemoptysis coming to the hospital Shortness of breath is improved. No headache, no blurry vision Saturating 95 to 96% on room air at the time of examination Review of Systems Review of Systems: All systems reviewed & are unremarkable except as noted in Subjective Physical Exam Physical Exam: Constitutional: No acute distress HEENT: EOMI, PERRLA Respiratory system: Decreased air entry bilaterally, no wheeze, no rhonchi, no crackles CVS: S1-S2 positive, positive 2 out of 6 systolic murmur appreciated at aorta Abdomen: Soft, nontender, nondistended, positive bowel sounds x4, obese Extremities: +2 pulses bilaterally radialis/ dorsalis pedis, no cyanosis, no edema Neuro: Awake alert oriented x3 Psych: Normal mood and affect G/U: No [place] Skin: no rashes, warm and dry Lymphatic: no cervical or axillary lymphadenopathy Results & Data Results & Data ([facility]) Vital Signs (Past 12 Hours) Vital Signs Temp Pulse Pulse Resp BP Pulse Ox O2 Del Method 07/29/22 02:59 36.7 C 75 18 134/68 95 Room Air 07/29/22 00:20 69 07/28/22 23:00 36.8 C 81 19 170/71 H 94 Room Air 07/28/22 21:28 Room Air Laboratory Results 07/28/22 05:15 07/28/22 05:15 PG Care Time/CCT Total # of Minutes Spent Total Time Spent with Patient: Total time spent is greater than 50% in coordination of care (as documented) at patient's floor/unit and/or counseling patient: Coding Level of Care Code 97117 SUB INP/OBS CARE 3/50MIN Diagnoses Lung mass R91.8 Hemoptysis R04.2 History of lung cancer Z85.118 COPD with emphysema J43.9 Ex-smoker Z87.891 Multiple pulmonary nodules R91.8 LAD (lymphadenopathy), mediastinal R59.0
[2022-07-29] MEDS: dilTIAZem HCL 180 MG CAPCR PO SCH ×2 (08:37→17:15)
[2022-07-29] MEDS: FLUTICASONE/SALMETEROL 250/50 (ADVAIR) 14 PUFF/1 INHALER INH SCH ×2 (08:37→21:23)
--- NOTE | 2022-07-29 10:48 | Anesthesiology Consultation ---
Date of Service July 29, 2022 Assessment & Plan Chart Review Chart Review: Acceptable Risk for Surgery and Patient NOT seen in Pre Admission Testing History Surgery Operation Date: 07/29/22 08:20 Proposed Procedures p Bronchoscopy Navigational - Selin Giordano MD, [facility] s Endobronchial Ultrasound - Selin Giordano MD, [facility] s Bronchoscopy Respiratory - Selin Giordano MD, [facility] Height/Weight Height: 5 ft 1 in Weight: 85.3 kg Allergies Allergy/AdvReac Type Severity Reaction Status Date / Time No Known Allergies Allergy Unknown Verified 05/13/20 20:17 Medications Home Medications Medication Instructions Recorded Confirmed Last Taken cholecalciferol (vitamin D3) 25 25 mcg PO DAILY 05/13/20 07/27/22 Unknown mcg (1,000 unit) tablet (Vitamin D3) clonazepam 0.5 mg tablet 0.5 mg PO BID 05/13/20 07/27/22 Unknown diltiazem HCl 180 mg 180 mg PO DAILY 05/13/20 07/27/22 Unknown capsule,extended release 24 hr fluticasone propionate 50 2 spray intranasal DAILY 05/13/20 07/27/22 Unknown mcg/actuation nasal spray,suspension gabapentin 300 mg capsule 300 mg PO HS 05/13/20 07/27/22 Unknown hydralazine 10 mg tablet 10 mg PO TID 05/13/20 07/27/22 Unknown losartan 50 mg tablet 50 mg PO DAILY 05/13/20 07/27/22 Unknown rosuvastatin 5 mg tablet 5 mg PO DAILY 05/13/20 07/27/22 Unknown fluticasone 250 mcg-salmeterol 50 1 ea inhalation AMHS 06/18/22 07/27/22 Unknown mcg/dose blistr powdr for inhalation [id number]-[id number] C-Mn 500 1 cap PO DAILY 06/18/22 07/27/22 Unknown mg-400 mg capsule (Glucosamine Chondroitin Maximum Strength) omega 0-kyq-agg-fish oil 1,000 mg 1 cap PO DAILY 06/18/22 07/27/22 Unknown (120 mg-180 mg) capsule (Fish Oil) Active Medications Generic Name Dose Route Start Last Admin Trade Name Freq PRN Reason Stop Dose Admin Acetaminophen 650 mg 07/27/22 20:35 07/28/22 21:46 Acetaminophen 325 Mg Tab PO 03/06/23 20:34 650 mg Q4H PRN Administration Pain or Fever Clonazepam 0.5 mg 07/27/22 21:00 07/28/22 21:24 Clonazepam 0.5 Mg Tab PO 08/26/22 20:59 0.5 mg BID ALLEY Administration Diltiazem HCl 180 mg 07/28/22 09:00 07/29/22 08:37 Diltiazem Hcl 180 Mg Capcr PO 08/27/22 08:59 180 mg DAILY ALLEY Administration Gabapentin 300 mg 07/27/22 21:00 07/28/22 21:25 Gabapentin 300 Mg Cap PO 08/26/22 20:59 300 mg HS ALLEY Administration Guaifenesin/Dextromethorphan 5 ml 07/28/22 13:00 07/29/22 06:22 Guaifenesin/Dextrom Syrup 100mg/10mg 5ml Udc PO 08/27/22 12:59 5 ml Q6H ALLEY Administration Hydralazine HCl 10 mg 07/27/22 21:00 07/28/22 21:24 Hydralazine 10 Mg Tab PO 08/26/22 20:59 10 mg TID ALLEY Administration Losartan Potassium 50 mg 07/28/22 09:00 07/28/22 08:39 Losartan Potassium 50 Mg Tab PO 08/27/22 08:59 50 mg DAILY ALLEY Administration Rosuvastatin Calcium 5 mg 07/28/22 09:00 07/28/22 08:39 Rosuvastatin Calcium 5 Mg Tab PO 08/27/22 08:59 5 mg DAILY ALLEY Administration Fluticasone/Salmeterol 1 puffs 07/27/22 23:30 07/29/22 08:37 Fluticasone/Salmeterol 250/50 (Advair) 14 Puff/1 Inhaler INH 08/26/22 23:29 1 puffs BID ALLEY Administration Past Medical History Medical History Chronic hyponatremia COPD (chronic obstructive pulmonary disease) History of lung cancer "resected by Dr. Flowers [address] Mcleod ." HTN (hypertension) Tobacco use disorder, moderate, in sustained remission Social History Smoking Status: Former smoker Hx Alcohol Use: No Hx Substance Use: No Physical Exam Vital Signs Last Vital Signs Temp 36.7 C 02/06/23 07:46 Pulse 60 07/29/22 07:46 Resp 18 07/29/22 07:46 BP 154/77 H 07/29/22 07:46 Pulse Ox 95 07/29/22 07:46 O2 Del Method 07/29/22 07:46 Testing Laboratory Results 07/28/22 05:15 07/28/22 05:15 PT 10.9 Seconds (9.0-12.0) 07/27/22 15:55 INR 1.0 (0.9-1.1) 07/27/22 15:55 APTT 33.3 Seconds (21.0-31.0) H 07/27/22 15:55
[2022-07-29] MEDS ORDERED: LIDOCAINE 2% MPF LOCAL 5 ML VIAL INFIL ONE (12:42)
[2022-07-29] MEDS ORDERED: ONDANSETRON INJ 2 MG/ML 2 ML VIAL ONE (12:42)
[2022-07-29] MEDS ORDERED: PROPOFOL IV EMULSION 10 MG/ML 20 ML VIAL IV ONE (12:42)
[2022-07-29] MEDS ORDERED: fentaNYL citrate 100 MCG/2 ML VIAL ONE (12:43)
[2022-07-29] MEDS ORDERED: ePHEDrine sulfate 50 MG/ML AMP IV PRN (13:53)
[2022-07-29] MEDS ORDERED: ONDANSETRON INJ 2 MG/ML 2 ML VIAL IV PRN (13:53)
[2022-07-29] MEDS ORDERED: fentaNYL citrate 100 MCG/2 ML VIAL IV PRN (13:53)
[2022-07-29] MEDS ORDERED: ATROPINE SULFATE 0.1 MG/ML 10ML SYR IV PRN (13:53)
[2022-07-29] MEDS ORDERED: SUGAMMADEX SODIUM 200 MG/2 ML VIAL IV ONE (14:49)
--- NOTE | 2022-07-29 15:12 | Procedure Note ---
Procedure Note Date of Service July 29, 2022 Note PREOPERATIVE DIAGNOSIS: Left upper lobe mass POSTOPERATIVE DIAGNOSIS: Left upper lobe PROCEDURE PERFORMED: Navigational bronchoscopy flexible fiberoptic bronchoscopy with bronchoalveolar lavage, transbronchial biopsies, brushings, EBUS add-on COMPLICATIONS: None. INDICATION: Rule out malignancy PROCEDURE: After obtaining an informed consent, the patient was brought to the OR. The patient had appropriate oxygen, blood pressure, heart rate, and respiratory rate monitoring applied and monitored continuously throughout the procedure. Sedation was managed by anesthesia. Please refer to the notes EBUS was introduced through the ETT Station 4R as well as station 7 were visualized. Deemed to be less than 5 mm. No biopsies were taken EBUS was withdrawn and flexible bronchoscope was introduced The trachea appeared normal.The bronchoscope was then advanced through the reji, which was sharp. The scope was then advanced into the right main stem and each segment, subsegement of right middle lobe and right lower lobe were visualized. There was right upper lobe stump which was intact. There were minimal amount of clear secretion which were suctioned out. There were no other findings including evidence of mass, anatomic distortions, or hemorrhage. The bronchoscope was subsequently withdrawn and advanced into the left mainstem. Again, each segment and subsegment was well visualized. No specific masses or other lesions were identified throughout the tracheobronchial tree on the left. There were minimal amount of clear secretion which were suctioned out. Panasas navigational system was introduced. With the help of navigation the bronchoscope was advanced into the left upper lobe and multiple transbronchial biopsies were taken. Minimal hemorrhage was identified and suctioned clear without difficulty. Cold saline was utilized to achieve adequate hemostasis. Preliminary diagnosis small cell lung cancer The bronchoscope was advanced in the left upper lobe and brushings were obtained. Preliminary diagnosis small cell lung cancer The bronchoscope was then wedged in the left upper lobe apical segment and bronchoalveolar lavage samples were obtained. 150 ml of saline was instilled and 40 ml of fluid was aspirated back.The bronchoscope was withdrawn and the area was suctioned clear. The bronchoscope was then withdrawn to the mainstem. The area was suctioned clear. The bronchoscope was then withdrawn. The patient tolerated the procedure well without evidence of desaturation or complications. Bronchoalveolar lavage samples were sent for cell count, Gram stain and bacterial culture, fungal culture and smear, and cytology. Transbronchial biopsies were sent for pathology. Recommendations: Preliminary diagnosis was small cell lung cancer. Await final pathology and cytology Follow-up chest x-ray Please note the above document was generated using voice recognition software. It may contain grammatical, syntax or spelling errors.Any formal questions or concerns about the content, text or information contained within the body of this dictation should be directly addressed to the provider for clarification. Coding CPT Codes Pulmonary/Thoracic - Pulmonary and Thoracic: 02385 Navigational Bronchoscopy ([id number]) Pulmonary/Thoracic - Pulmonary and Thoracic: 04544 Bronchoscopy w/ transbronchial lung bx ([id number]) Pulmonary/Thoracic - Pulmonary and Thoracic: 71576 Dx bronchoscopy/brush ([id number]) Pulmonary/Thoracic - Pulmonary and Thoracic: 57591 Bronchoscopy, w/EBUS add on ([id number]) Pulmonary/Thoracic - Pulmonary and Thoracic: 26905 Dx bronchoscopy/BAL ([id number]) [facility] Procedure Codes (Charges) Pulmonary/Thoracic Procedure 1: Pulmonary and Thoracic: 57501 Navigational Bronchoscopy Procedure 2: Pulmonary and Thoracic: 60121 Bronchoscopy w/ transbronchial lung bx Procedure 3: Pulmonary and Thoracic: 05026 Dx bronchoscopy/brush Procedure 4: Pulmonary and Thoracic: 92590 Bronchoscopy, w/EBUS add on Procedure 5: Pulmonary and Thoracic: 47430 Dx bronchoscopy/BAL
--- NOTE | 2022-07-29 15:30 | XRay Report ---
SINGLE VIEW CHEST CLINICAL HISTORY: Post bronchoscopy. FINDINGS: An AP, portable, upright chest radiograph is compared to study dated 07/27/2012 and correlate d with chest CT dated 07/29/2022. The heart is enlarged noting atherosclerotic calcification of the tho racic aorta. The pulmonary vasculature is not congested. Emphysema and chronic interstitial thickenin g is similar to previous. Airspace opacities in the left upper lung are new from previous and likely represents postprocedural hemorrhage. This partially obscures the known left suprahilar mass. Scarrin g/atelectasis is seen at the right lung base. No pneumothorax is seen. The skeletal structures are os teopenic. The bony thorax is grossly intact. IMPRESSION: 1. No pneumothorax is identified post procedure. 2. Cardiomegaly and emphysema. 3. Left upper lobe airspace opacities are new from previous and likely represent postprocedural hemor rhage. 4. This partially obscures the left suprahilar mass lesion. ACT 112: Negative or not required by law. Electronically signed by: Mahesh Sainz M.D. 07/29/2022 3:29 PM
--- NOTE | 2022-07-29 16:10 | Hospitalist Progress Note ---
Date of Service July 29, 2022 Assessment & Plan (1) Hemoptysis: (2) Lung mass: (3) History of lung cancer: Plan: Past medical history of right upper lobectomy for lung cancer in 2007 followed by chemotherapy. History of smoking Presents with 1 episode of hemoptysis No more episode of hematemesis since admission. Hemoglobin 10.6 today; [address] angio shows left hilar/left upper lobe mass suggestive of primary bronchogenic carcinoma measuring 4.6 cm; masses contiguous with metastatic AP window lymphadenopathy. Plan; - monitor for any signs of hemoptysis, shortness of breath. Will start [id number] antitussive as per pulmonology recommendation. Patient to undergo bronchoscopy tomorrow AM. N.p.o. from midnight. MRI brain with and without contrast ordered to rule out mets. No anticoagulation -Appreciate pulmonary input and recommendation -Status post bronchoscopy -Repeat chest x-ray showing possible minor bleeding involving the site of the bronchoscopy -We will monitor -The report is pending which was done this morning before there is Other conditions: Chronic hyponatremia- Na of 137; continue fluid restriction 1500ml. Hypertension- continue cardizem, hydaralzine , losartan. HLD- rosuvastatin Generalized anxiety disordercontinue Klonopin Anxiety seems to be controlled Code Status DNR/DNI; discussed with patient. DVT prophylaxis SCDs Admission and Anticipated Discharge Date Admission Date: July 27, 2022 Subjective 07/29/2022 The patient was seen and examined in telemetry unit She has had only 1 episode of hemoptysis Denies any chest pain and/or shortness of breath We will have bronchoscopy with biopsy sometime today Review of Systems Review of Systems: All systems reviewed and are unremarkable except as noted below Physical Exam Physical Exam: Lying in bed comfortably Constitutional: well developed, well nourished, + ill appearing and + obese Eyes: PERRL, conjunctivae normal, anicteric sclerae ENMT: external ear and nose normal, oropharynx normal Neck: trachea midline, no thyromegaly Respiratory: no respiratory distress Auscultation: + diminished lung sounds (Left upper lung); no crackles Cardiovascular: Rate/Rhythm: regular rate and regular rhythm; not tachycardic Heart Sounds: normal S1 and normal S2; no murmur Extremities: no edema Gastrointestinal (Abdomen): Inspection/Auscultation: normal bowel sounds; abdomen not distended Percussion/Palpation: abdomen soft; abdomen nontender Musculoskeletal: No acute arthritis involving any joint Neurologic: Alert, awake and oriented x3. No focal sensory or motor deficit appreciated Lymphatic: no cervical or axillary lymphadenopathy Results & Data Results & Data ([facility]) Vital Signs (Past 12 Hours) Vital Signs Temp Pulse Pulse Pulse Resp BP Pulse Ox 07/29/22 15:50 67 18 148/73 H 97 07/29/22 15:40 36.5 C 68 19 162/72 H 96 07/29/22 15:30 75 22 153/74 H 95 07/29/22 15:20 86 20 138/63 98 07/29/22 15:10 88 15 147/78 H 97 07/29/22 15:04 36.0 C L 86 20 175/82 H 98 07/29/22 13:43 36.8 C 76 20 161/78 H 94 07/29/22 11:57 36.6 C 82 18 164/76 H 94 07/29/22 07:00 75 07/29/22 07:46 36.7 C 60 18 154/77 H 95 O2 Del Method O2 Flow Rate 07/29/22 15:50 Nasal Cannula 2 07/29/22 15:40 Nasal Cannula 2 07/29/22 15:30 Nasal Cannula 2 07/29/22 15:20 Nasal Cannula 3 07/29/22 15:10 Nasal Cannula 3 07/29/22 15:04 Oxymask 6 07/29/22 13:43 Room Air 07/29/22 11:57 Room Air 07/29/22 07:00 07/29/22 07:46 Room Air Medications Administered Current Inpatient Medications Acetaminophen (Acetaminophen 325 Mg Tab) 650 mg PO Q4H PRN PRN Reason: Pain or Fever Stop: 08/26/22 20:34 Last Admin: 07/28/22 21:46 Dose: 650 mg Atropine Sulfate (Atropine Sulfate 0.1 Mg/Ml 10ml Syr) 0.5 mg IV Q1M PRN PRN Reason: PACU Use-HR<40 &/or Bradycardi Stop: 07/29/22 21:53 Clonazepam (Clonazepam 0.5 Mg Tab) 0.5 mg PO BID ALLEY Stop: 08/26/22 20:59 Last Admin: 07/28/22 21:24 Dose: 0.5 mg Diltiazem HCl (Diltiazem Hcl 180 Mg Capcr) 180 mg PO DAILY [facility] Stop: 08/27/22 08:59 Last Admin: 07/29/22 08:37 Dose: 180 mg Ephedrine Sulfate (Ephedrine Sulfate 50 Mg/Ml Amp) 5 mg IV Q5M PRN PRN Reason: PACU Use Only-SBP<90 mmHg Stop: 07/29/22 21:53 Fentanyl Citrate (Fentanyl Citrate 100 Mcg/2 Ml Vial) 50 mcg IV Q5M PRN PRN Reason: PACU Use Only-Pain Stop: 07/29/22 21:53 Gabapentin (Gabapentin 300 Mg Cap) 300 mg PO HS [facility] Stop: 08/26/22 20:59 Last Admin: 07/28/22 21:25 Dose: 300 mg Guaifenesin/Dextromethorphan (Guaifenesin/Dextrom Syrup 100mg/10mg 5ml Udc) 5 ml PO Q6H [facility] Stop: 08/27/22 12:59 Last Admin: 07/29/22 06:22 Dose: 5 ml Hydralazine HCl (Hydralazine 10 Mg Tab) 10 mg PO TID [facility] Stop: 08/26/22 20:59 Last Admin: 07/28/22 21:24 Dose: 10 mg Losartan Potassium (Losartan Potassium 50 Mg Tab) 50 mg PO DAILY [facility] Stop: 08/27/22 08:59 Last Admin: 07/28/22 08:39 Dose: 50 mg Ondansetron HCl (Ondansetron Inj 2 Mg/Ml 2 Ml Vial) 4 mg IV ONCE PRN PRN Reason: PACU Use Only-Nausea/Vomiting Stop: 07/29/22 21:54 Rosuvastatin Calcium (Rosuvastatin Calcium 5 Mg Tab) 5 mg PO DAILY [facility] Stop: 08/27/22 08:59 Last Admin: 07/28/22 08:39 Dose: 5 mg Fluticasone/Salmeterol (Fluticasone/Salmeterol 250/50 (Advair) 14 Puff/1 Inhaler) 1 puffs INH BID [facility] Stop: 08/26/22 23:29 Last Admin: 07/29/22 08:37 Dose: 1 puffs
--- NOTE | 2022-07-29 16:41 | Anesthesiology Progress Note ---
Date of Service July 29, 2022 Anesthesia Post Procedure Vital Signs Vital Signs: Temp Pulse Pulse Pulse Resp BP Pulse Ox 07/29/22 16:00 36.9 C 72 18 160/76 H 93 07/29/22 15:50 67 18 148/73 H 97 07/29/22 15:40 36.5 C 68 19 162/72 H 96 07/29/22 15:30 75 22 153/74 H 95 07/29/22 15:20 86 20 138/63 98 07/29/22 15:10 88 15 147/78 H 97 07/29/22 15:04 36.0 C L 86 20 175/82 H 98 07/29/22 13:43 36.8 C 76 20 161/78 H 94 07/29/22 11:57 36.6 C 82 18 164/76 H 94 07/29/22 07:00 75 07/29/22 07:46 36.7 C 60 18 154/77 H 95 07/29/22 02:59 36.7 C 75 18 134/68 95 07/29/22 00:20 69 07/28/22 23:00 36.8 C 81 19 170/71 H 94 07/28/22 21:28 07/28/22 19:14 36.7 C 75 18 165/79 H 96 O2 Del Method O2 Flow Rate 07/29/22 16:00 Nasal Cannula 2 07/29/22 15:50 Nasal Cannula 2 07/29/22 15:40 Nasal Cannula 2 07/29/22 15:30 Nasal Cannula 2 07/29/22 15:20 Nasal Cannula 3 07/29/22 15:10 Nasal Cannula 3 07/29/22 15:04 Oxymask 6 07/29/22 13:43 Room Air 07/29/22 11:57 Room Air 07/29/22 07:00 07/29/22 07:46 Room Air 07/29/22 02:59 Room Air 07/29/22 00:20 07/28/22 23:00 Room Air 07/28/22 21:28 Room Air 07/28/22 19:14 Room Air Transfer of Care Handoff Completed per policy Notes Mental Status: alert / awake / arousable and participated in evaluation Patient Amnestic to Procedure: Yes Nausea / Vomiting: adequately controlled Pain: adequately controlled Airway Patency, RR, SpO2: stable & adequate BP & HR: stable & adequate Hydration State: stable & adequate Anesthetic Complications: no major complications apparent and Pt Satisfied with anesthetic care
[2022-07-29] MEDS: ROSUVASTATIN CALCIUM 5 MG TAB PO SCH (17:15)
[2022-07-29] MEDS: LOSARTAN POTASSIUM 50 MG TAB PO SCH (17:16)
[2022-07-29] MEDS: hydrALAZINE 10 MG TAB PO SCH ×3 (17:16→21:21)
[2022-07-29] MEDS: clonazePAM 0.5 MG TAB PO SCH ×2 (17:18→21:22)
[2022-07-29 20:41] LABS: Fluid Mono/Macrophage 82 %; Lymphocyte Body Fluid Man 9 %; Neutrophil Body Fluid Man 9 %
[2022-07-29] MEDS: GABAPENTIN 300 MG CAP PO SCH (21:21)
[2022-07-29] MEDS: ACETAMINOPHEN 325 MG TAB PO PRN (21:31)
[2022-07-30] MEDS: guaiFENesin/DEXTROM SYRUP 100MG/10MG 5ML UDC PO SCH ×6 (01:52→21:15)
[2022-07-30 06:29] LABS: Basophils # (auto) 0.01 K/uL (0-0.2); Basophils % (auto) 0.2 %; Hematocrit (blood only) 31.7 % (37.0-47.0); Hemoglobin 10.2 g/dl (12.0-16.0); Immature Granulocytes # (auto) 0.03 K/uL (0.01-0.20); Immature Granulocytes % (auto) 0.5 %; Lymphocytes % (auto) 13.7 %; Mean Corpuscular Hemoglobin 25.4 pg (25.0-34.0); Mean Corpuscular Hgb Conc 32.2 g/dL (32.0-36.0); Mean Corpuscular Volume 78.9 fL (80.0-100.0); Mean Platelet Volume 9.1 fL (9.4-12.4); Monocytes # (auto) 0.24 K/uL (0.11-0.59); Monocytes % (auto) 4.1 %; Neutrophils # (auto) 4.78 K/uL (1.40-6.50); Neutrophils % (auto) 81.5 %; Platelet Count 352 K/uL (130-400); RDW Coefficient of Variation 17.4 % (11.5-14.5); RDW Standard Deviation 49.6 fL (36.4-46.3); Red Blood Count 4.02 M/uL (4.20-5.40); White Blood Count 5.86 K/ul (4.8-10.8)
[2022-07-30 06:45] LABS: Calcium 9.5 mg/dl (8.5-10.1); Creatinine Clr Calc Pharmacy 63.4 ml/min; Est GFR (African American) 94.6 ml/min; Est GFR (Non-African American) 81.6 ml/min; Potassium 4.2 mmol/L (3.5-5.1)
[2022-07-30] MEDS: clonazePAM 0.5 MG TAB PO SCH ×2 (08:47→21:16)
[2022-07-30] MEDS: hydrALAZINE 10 MG TAB PO SCH ×3 (08:48→21:15)
[2022-07-30] MEDS: FLUTICASONE/SALMETEROL 250/50 (ADVAIR) 14 PUFF/1 INHALER INH SCH ×2 (08:48→21:15)
[2022-07-30] MEDS: LOSARTAN POTASSIUM 50 MG TAB PO SCH (09:34)
[2022-07-30] MEDS: ROSUVASTATIN CALCIUM 5 MG TAB PO SCH (09:34)
--- NOTE | 2022-07-30 10:17 | Pulmonology Progress Note ---
Date of Service July 30, 2022 Assessment & Plan (1) Lung mass: (2) Hemoptysis: (3) History of lung cancer: (4) COPD with emphysema: (5) Ex-smoker: (6) Multiple pulmonary nodules: (7) LAD (lymphadenopathy), mediastinal: Plan CT chest 07/27/2022 personally reviewed: Centrilobular emphysema appreciated bilaterally, right upper lobectomy Left upper lobe 3.7 cm x 3.5 cm pulmonary mass with para-aortic mediastinal lymphadenopathy 5 mm left lower lobe pulmonary nodule, 4 mm right lower lobe pulmonary nodule (stable from before) Linear scarring of the right lower lobe -- Left upper lobe mass with mediastinal lymphadenopathy Masses new compared to CT chest which was done August 2019 S/p navigational bronchoscopy 07/29/2022:-Preliminary diagnosis small cell lung cancer MRI brain negative 07/28/2022 -- Hemoptysis Likely from underlying malignancy Continue with antitussive medication [id number] --COPD with emphysema On Advair 250-50 at home We recommended to be changed to Anoro instead on discharge --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 It may contain grammatical, syntax or spelling errors.Any formal questions or concerns about the content, text or information contained within the body of this dictation should be directly addressed to the provider for clarification. Admission and Anticipated Discharge Date Admission Date: July 27, 2022 Subjective Patient seen and examined at bedside. No acute distress, no adverse events overnight Patient says she is doing okay when it comes to her breathing She did have some hemoptysis yesterday but it has decreased in intensity and frequency Denies any chest pain No headache. Was saturating 99% on 2 L at the time of examination Review of Systems Review of Systems: All systems reviewed & are unremarkable except as noted in Subjective Physical Exam Physical Exam: Constitutional: No acute distress HEENT: EOMI, PERRLA Respiratory system: Decreased air entry bilaterally, no wheeze, no rhonchi, no crackles CVS: S1-S2 positive, positive 2 out of 6 systolic murmur appreciated at aorta Abdomen: Soft, nontender, nondistended, positive bowel sounds x4, obese Extremities: +2 pulses bilaterally radialis/ dorsalis pedis, no cyanosis, no edema Neuro: Awake alert oriented x3 Psych: Normal mood and affect G/U: No Harding Skin: no rashes, warm and dry Lymphatic: no cervical or axillary lymphadenopathy Results & Data Results & Data ([facility]) Vital Signs (Past 12 Hours) Vital Signs Temp Pulse Pulse Resp BP Pulse Ox O2 Del Method 07/30/22 09:39 96 Room Air 07/30/22 08:32 Nasal Cannula 07/30/22 07:30 36.7 C 97 H 20 137/72 95 Nasal Cannula 07/30/22 03:57 36.7 C 82 18 117/62 92 Nasal Cannula 07/29/22 23:43 79 07/29/22 23:43 36.8 C 82 19 123/65 98 Nasal Cannula O2 Flow Rate 07/30/22 09:39 07/30/22 08:32 2 07/30/22 07:30 2 07/30/22 03:57 07/29/22 23:43 07/29/22 23:43 Laboratory Results 07/30/22 05:35 07/30/22 05:35 PG Care Time/CCT Total # of Minutes Spent Total Time Spent with Patient: Total time spent is greater than 50% in coordination of care (as documented) at patient's floor/unit and/or counseling patient: Coding Level of Care Code 17538 SUB INP/OBS CARE 235MIN Diagnoses Lung mass R91.8 Hemoptysis R04.2 History of lung cancer Z85.118 COPD with emphysema J43.9 Ex-smoker Z87.891 Multiple pulmonary nodules R91.8 LAD (lymphadenopathy), mediastinal R59.0
[2022-07-30] MEDS ORDERED: HYDROcodone/HOMATROPINE SYRUP 5MG/1.5MG 5ML UDP PO PRN (10:29)
--- NOTE | 2022-07-30 15:01 | Hospitalist Progress Note ---
Date of Service July 30, 2022 Assessment & Plan (1) Hemoptysis: (2) Lung mass: (3) History of lung cancer: Plan: Past medical history of right upper lobectomy for lung cancer in 2007 followed by chemotherapy. History of smoking Presents with 1 episode of hemoptysis No more episode of hematemesis since admission. Hemoglobin 10.6 today; [address] angio shows left hilar/left upper lobe mass suggestive of primary bronchogenic carcinoma measuring 4.6 cm; masses contiguous with metastatic AP window lymphadenopathy. Plan; - monitor for any signs of hemoptysis, shortness of breath. Will start [id number] antitussive as per pulmonology recommendation. Patient to undergo bronchoscopy tomorrow AM. N.p.o. from midnight. MRI brain with and without contrast ordered to rule out mets. No anticoagulation -Appreciate pulmonary input and recommendation -Status post bronchoscopy -Repeat chest x-ray showing possible minor bleeding involving the site of the bronchoscopy -Repeat x-ray this morning shows clearance of the questionable bleeding and the patient does not have any more hemoptysis Niccoli much better likely be discharged tomorrow She has been ambulating in the room without difficulty sent has not required any oxygen She will be given cough medicine with Hycodan Will have outpatient appointment with the oncologist Other conditions: Chronic hyponatremia- Na of 137; continue fluid restriction 1500ml. Hypertension- continue cardizem, hydaralzine , losartan. HLD- rosuvastatin Generalized anxiety disordercontinue Klonopin Anxiety seems to be controlled Code Status DNR/DNI; discussed with patient. DVT prophylaxis SCDs Admission and Anticipated Discharge Date Admission Date: July 27, 2022 Subjective 07/29/2022 The patient was seen and examined in telemetry unit She has had only 1 episode of hemoptysis Denies any chest pain and/or shortness of breath We will have bronchoscopy with biopsy sometime today 07/30/2022 The patient was seen and examined in telemetry unit She denies any symptoms and has not required any oxygen at rest She has been ambulating in the room and in the hallway without any symptoms Likely discharge tomorrow Review of Systems Review of Systems: All systems reviewed and are unremarkable except as noted below Physical Exam Physical Exam: Lying in bed comfortably Constitutional: well developed, well nourished, + ill appearing and + obese Eyes: PERRL, conjunctivae normal, anicteric sclerae ENMT: external ear and nose normal, oropharynx normal Neck: trachea midline, no thyromegaly Respiratory: no respiratory distress Auscultation: no diminished lung sounds (Left upper lung) and no crackles Cardiovascular: Rate/Rhythm: regular rate and regular rhythm; not tachycardic Heart Sounds: normal S1 and normal S2; no murmur Extremities: no edema Gastrointestinal (Abdomen): Inspection/Auscultation: normal bowel sounds; abdomen not distended Percussion/Palpation: abdomen soft; abdomen nontender Musculoskeletal: No acute arthritis involving any joint Neurologic: Alert, awake and oriented x3. No focal sensory or motor deficit appreciated Psychiatric: A+Ox3, euthymic affect Lymphatic: no cervical or axillary lymphadenopathy Results & Data Results & Data ([facility]) Vital Signs (Past 12 Hours) Vital Signs Temp Pulse Resp BP Pulse Ox O2 Del Method O2 Flow Rate 07/30/22 11:45 36.7 C 71 19 125/65 95 Room Air 07/30/22 09:39 96 Room Air 07/30/22 08:32 Nasal Cannula 2 07/30/22 07:30 36.7 C 97 H 20 137/72 95 Nasal Cannula 2 07/30/22 03:57 36.7 C 82 18 117/62 92 Nasal Cannula Laboratory Results Short CBC 07/30/22 Range/Units 05:35 WBC 5.86 (4.8-10.8) K/ul Hgb 10.2 L (12.0-16.0) g/dl Hct 31.7 L (37.0-47.0) % Plt Count 352 (130-400) K/uL BMP 07/30/22 05:35 Sodium 136 Potassium 4.2 Chloride 102 Carbon Dioxide 27 BUN 20 Creatinine 0.69 Glucose 151 H Calcium 9.5 Medications Administered Current Inpatient Medications Acetaminophen (Acetaminophen 325 Mg Tab) 650 mg PO Q4H PRN PRN Reason: Pain or Fever Stop: 08/26/22 20:34 Last Admin: 07/29/22 21:31 Dose: 650 mg Clonazepam (Clonazepam 0.5 Mg Tab) 0.5 mg PO BID [facility] Stop: 08/26/22 20:59 Last Admin: 07/30/22 08:47 Dose: 0.5 mg Diltiazem HCl (Diltiazem Hcl 180 Mg Capcr) 180 mg PO DAILY [facility] Stop: 08/27/22 08:59 Last Admin: 07/29/22 17:15 Dose: 180 mg Gabapentin (Gabapentin 300 Mg Cap) 300 mg PO HS [facility] Stop: 08/26/22 20:59 Last Admin: 07/29/22 21:21 Dose: 300 mg Guaifenesin/Dextromethorphan (Guaifenesin/Dextrom Syrup 100mg/10mg 5ml Udc) 5 ml PO Q6H [facility] Stop: 08/27/22 12:59 Last Admin: 07/30/22 14:10 Dose: Not Given Hydralazine HCl (Hydralazine 10 Mg Tab) 10 mg PO TID [place] Stop: 08/26/22 20:59 Last Admin: 07/30/22 08:48 Dose: 10 mg Hydrocodone Bit/Homatropine Methylb (Hydrocodone/Homatropine Syrup 5mg/1.5mg 5ml Udp) 5 ml PO Q6H PRN PRN Reason: Cough Stop: 08/13/22 10:28 Losartan Potassium (Losartan Potassium 50 Mg Tab) 50 mg PO DAILY [facility] Stop: 08/27/22 08:59 Last Admin: 07/30/22 09:34 Dose: 50 mg Rosuvastatin Calcium (Rosuvastatin Calcium 5 Mg Tab) 5 mg PO DAILY [facility] Stop: 08/27/22 08:59 Last Admin: 07/30/22 09:34 Dose: 5 mg Fluticasone/Salmeterol (Fluticasone/Salmeterol 250/50 (Advair) 14 Puff/1 Inhaler) 1 puffs INH BID [facility] Stop: 08/26/22 23:29 Last Admin: 07/30/22 08:48 Dose: 1 puffs
--- NOTE | 2022-07-30 15:43 | XRay Report ---
SINGLE VIEW CHEST CLINICAL HISTORY: Follow-up post bronchoscopy. FINDINGS: An AP, portable, upright chest radiograph is compared to study chest x-ray and chest CT 07/29. The heart is enlarged note atherosclerotic calcification of the thoracic aorta. The pulmonary vasculature is noncongested. Emphysema and chronic interstitial thickening similar to previous. Again seen is a 4.5 cm left suprahilar mass lesion. Left upper lobe opacities have largely resolved from y esterday. Scarring/atelectasis is seen at the right lung base. No large pleural effusion is identifie d. No pneumothorax is seen. The skeletal structures are osteopenic. The bony thorax is grossly intact . IMPRESSION: 1. Cardiomegaly and emphysema. 2. A left suprahilar mass lesion is unchanged. 3. Airspace opacities in the left upper lung have largely resolved as compared to yesterday. 4. No pneumothorax is seen post procedure. ACT 112: Negative or not required by law. Electronically signed by: Mahesh Sainz M.D. 07/30/2022 3:41 PM
[2022-07-30] MEDS: ACETAMINOPHEN 325 MG TAB PO PRN (21:15)
[2022-07-30] MEDS: GABAPENTIN 300 MG CAP PO SCH (21:16)
[2022-07-31] MEDS: guaiFENesin/DEXTROM SYRUP 100MG/10MG 5ML UDC PO SCH ×3 (00:59→13:24)
[2022-07-31 06:40] LABS: Basophils # (auto) 0.02 K/uL (0-0.2); Basophils % (auto) 0.2 %; Eosinophils # (auto) 0.02 K/uL (0-0.50); Eosinophils % (auto) 0.2 %; Hematocrit (blood only) 31.4 % (37.0-47.0); Hemoglobin 9.9 g/dl (12.0-16.0); Immature Granulocytes # (auto) 0.03 K/uL (0.01-0.20); Immature Granulocytes % (auto) 0.3 %; Lymphocytes # (auto) 2.23 K/uL (1.2-3.4); Lymphocytes % (auto) 20.7 %; Mean Corpuscular Hemoglobin 25.1 pg (25.0-34.0); Mean Corpuscular Hgb Conc 31.5 g/dL (32.0-36.0); Mean Corpuscular Volume 79.7 fL (80.0-100.0); Mean Platelet Volume 9.1 fL (9.4-12.4); Monocytes # (auto) 1.04 K/uL (0.11-0.59); Monocytes % (auto) 9.7 %; Neutrophils # (auto) 7.41 K/uL (1.40-6.50); Neutrophils % (auto) 68.9 %; Platelet Count 346 K/uL (130-400); RDW Coefficient of Variation 17.2 % (11.5-14.5); RDW Standard Deviation 50.3 fL (36.4-46.3); Red Blood Count 3.94 M/uL (4.20-5.40); White Blood Count 10.75 K/ul (4.8-10.8)
--- NOTE | 2022-07-31 07:53 | Pulmonology Progress Note ---
Date of Service July 31, 2022 Assessment & Plan (1) Lung mass: (2) Hemoptysis: (3) History of lung cancer: (4) COPD with emphysema: (5) Ex-smoker: (6) Multiple pulmonary nodules: (7) LAD (lymphadenopathy), mediastinal: Plan CT chest 07/27/2022 personally reviewed: Centrilobular emphysema appreciated bilaterally, right upper lobectomy Left upper lobe 3.7 cm x 3.5 cm pulmonary mass with para-aortic mediastinal lymphadenopathy 5 mm left lower lobe pulmonary nodule, 4 mm right lower lobe pulmonary nodule (stable from before) Linear scarring of the right lower lobe -- Left upper lobe mass with mediastinal lymphadenopathy Masses new compared to CT chest which was done August 2019 S/p navigational bronchoscopy 07/29/2022:-Small cell lung cancer MRI brain negative 07/28/2022 -- Hemoptysis Likely from underlying malignancy Continue with antitussive medication [id number] --COPD with emphysema On Advair 250-50 at home We recommended to be changed to Anoro instead on discharge --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 We will sign off Please call directly with any questions Case was discussed with Dr Martin Please note the above document was generated using voice recognition software. It may contain grammatical, syntax or spelling errors.Any formal questions or concerns about the content, text or information contained within the body of this dictation should be directly addressed to the provider for clarification. Admission and Anticipated Discharge Date Admission Date: July 27, 2022 Subjective Patient seen and examined at bedside. No acute distress, no adverse events overnight. Denies any headache, no nausea, no vomiting No hemoptysis. Cough has decreased in intensity and frequency Fair appetite Review of Systems Review of Systems: All systems reviewed & are unremarkable except as noted in Subjective Physical Exam Physical Exam: Constitutional: No acute distress HEENT: EOMI, PERRLA Respiratory system: Decreased air entry bilaterally, no wheeze, no rhonchi, no crackles CVS: S1-S2 positive, positive 2 out of 6 systolic murmur appreciated at aorta Abdomen: Soft, nontender, nondistended, positive bowel sounds x4, obese Extremities: +2 pulses bilaterally radialis/ dorsalis pedis, no cyanosis, no edema Neuro: Awake alert oriented x3 Psych: Normal mood and affect G/U: No Harding Skin: no rashes, warm and dry Lymphatic: no cervical or axillary lymphadenopathy Results & Data Results & Data ([facility]) Vital Signs (Past 12 Hours) Vital Signs Temp Pulse Pulse Resp BP Pulse Ox O2 Del Method 07/31/22 03:43 36.9 C 66 20 122/61 95 Room Air 07/30/22 22:30 66 07/30/22 23:33 36.5 C 71 20 160/77 H 93 Room Air Laboratory Results 07/31/22 06:03 07/30/22 05:35 PG Care Time/CCT Total # of Minutes Spent Total Time Spent with Patient: Total time spent is greater than 50% in coordination of care (as documented) at patient's floor/unit and/or counseling patient: Coding Level of Care Code 31247 SUB INP/OBS CARE 2/35MIN Diagnoses Lung mass R91.8 Hemoptysis R04.2 History of lung cancer Z85.118 COPD with emphysema J43.9 Ex-smoker Z87.891 Multiple pulmonary nodules R91.8 LAD (lymphadenopathy), mediastinal R59.0
[2022-07-31] MEDS: LOSARTAN POTASSIUM 50 MG TAB PO SCH (08:13)
[2022-07-31] MEDS: ROSUVASTATIN CALCIUM 5 MG TAB PO SCH (08:13)
[2022-07-31] MEDS: hydrALAZINE 10 MG TAB PO SCH ×2 (08:13→13:24)
[2022-07-31] MEDS: dilTIAZem HCL 180 MG CAPCR PO SCH (08:13)
[2022-07-31] MEDS: FLUTICASONE/SALMETEROL 250/50 (ADVAIR) 14 PUFF/1 INHALER INH SCH (08:14)
[2022-07-31] MEDS: clonazePAM 0.5 MG TAB PO SCH (08:15)
--- NOTE | 2022-07-31 12:42 | Hospitalist Progress Note ---
Date of Service July 31, 2022 Assessment & Plan (1) Hemoptysis: (2) Lung mass: (3) History of lung cancer: Plan: Pathology came back positive for small cell lung cancer Past medical history of right upper lobectomy for lung cancer in 2008 followed b y chemotherapy. History of smoking Presents with 1 episode of hemoptysis No more episode of hematemesis since admission. Hemoglobin 10.6 today; [address] angio shows left hilar/left upper lobe mass suggestive of primary bronchogenic carcinoma measuring 4.6 cm; masses contiguous with metastatic AP window lymphadenopathy. Plan; - monitor for any signs of hemoptysis, shortness of breath. Will start [id number] antitussive as per pulmonology recommendation. Patient to undergo bronchoscopy tomorrow AM. N.p.o. from midnight. MRI brain with and without contrast ordered to rule out mets. No anticoagulation -Appreciate pulmonary input and recommendation -Status post bronchoscopy -Repeat chest x-ray showing possible minor bleeding involving the site of the bronchoscopy -Repeat x-ray this morning shows clearance of the questionable bleeding and the patient does not have any more hemoptysis Niccoli much better likely be discharged tomorrow She has been ambulating in the room without difficulty sent has not required any oxygen She will be given cough medicine with Hycodan Will have outpatient appointment with the oncologist Remains stable and normal hemoptysis and no shortness of breath-will be discharged home this afternoon Will be called with appointment with the oncologist, radiation oncologist and PCP Other conditions: Chronic hyponatremia- Na of 137; continue fluid restriction 1500ml. Hypertension- continue cardizem, hydaralzine , losartan. HLD- rosuvastatin Generalized anxiety disordercontinue Klonopin Anxiety seems to be controlled Code Status DNR/DNI; discussed with patient. DVT prophylaxis SCDs Admission and Anticipated Discharge Date Admission Date: July 27, 2022 Subjective 07/29/2022 The patient was seen and examined in telemetry unit She has had only 1 episode of hemoptysis Denies any chest pain and/or shortness of breath We will have bronchoscopy with biopsy sometime today 07/30/2022 The patient was seen and examined in telemetry unit She denies any symptoms and has not required any oxygen at rest She has been ambulating in the room and in the hallway without any symptoms Likely discharge tomorrow 07/31/2022 The patient was seen and examined in telemetry unit She remains asymptomatic does not have any more hemoptysis Denies any shortness of breath at rest There is no desaturation events She will be discharged home this afternoon Review of Systems Review of Systems: All systems reviewed and are unremarkable except as noted below Physical Exam Physical Exam: Lying in bed comfortably Constitutional: well developed, well nourished, + ill appearing and + obese Eyes: PERRL, conjunctivae normal, anicteric sclerae ENMT: external ear and nose normal, oropharynx normal Neck: trachea midline, no thyromegaly Respiratory: no respiratory distress Auscultation: no diminished lung sounds (Left upper lung) and no crackles Cardiovascular: Rate/Rhythm: regular rate and regular rhythm; not tachycardic Heart Sounds: normal S1 and normal S2; no murmur Extremities: no edema Gastrointestinal (Abdomen): Inspection/Auscultation: normal bowel sounds; abdomen not distended Percussion/Palpation: abdomen soft; abdomen nontender Musculoskeletal: No acute arthritis involving any joint Neurologic: Alert, awake and oriented x3. No focal sensory or motor deficit appreciated Psychiatric: A+Ox3, euthymic affect Lymphatic: no cervical or axillary lymphadenopathy Results & Data Results & Data ([facility]) Vital Signs (Past 12 Hours) Vital Signs Temp Pulse Resp BP Pulse Ox O2 Del Method 07/31/22 11:26 36.7 C 64 19 149/69 H 94 Room Air 07/31/22 08:03 36.7 C 62 19 158/80 H 94 Room Air 07/31/22 03:43 36.9 C 66 20 122/61 95 Room Air Laboratory Results Short CBC 07/31/22 Range/Units 06:03 WBC 10.75 (4.8-10.8) K/ul Hgb 9.9 L (12.0-16.0) g/dl Hct 31.4 L (37.0-47.0) % Plt Count 346 (130-400) K/uL Medications Administered Current Inpatient Medications Acetaminophen (Acetaminophen 325 Mg Tab) 650 mg PO Q4H PRN PRN Reason: Pain or Fever Stop: 08/26/22 20:34 Last Admin: 07/30/22 21:15 Dose: 650 mg Clonazepam (Clonazepam 0.5 Mg Tab) 0.5 mg PO BID ALLEY Stop: 08/26/22 20:59 Last Admin: 07/31/22 08:15 Dose: 0.5 mg Diltiazem HCl (Diltiazem Hcl 180 Mg Capcr) 180 mg PO DAILY ALELY Stop: 08/27/22 08:59 Last Admin: 07/31/22 08:13 Dose: 180 mg Gabapentin (Gabapentin 300 Mg Cap) 300 mg PO HS ALLEY Stop: 08/26/22 20:59 Last Admin: 07/30/22 21:16 Dose: 300 mg Guaifenesin/Dextromethorphan (Guaifenesin/Dextrom Syrup 100mg/10mg 5ml Udc) 5 ml PO Q6H ALLEY Stop: 08/27/22 12:59 Last Admin: 07/31/22 08:13 Dose: 5 ml Hydralazine HCl (Hydralazine 10 Mg Tab) 10 mg PO TID ALLEY Stop: 08/26/22 20:59 Last Admin: 07/31/22 08:13 Dose: 10 mg Hydrocodone Bit/Homatropine Methylb (Hydrocodone/Homatropine Syrup 5mg/1.5mg 5ml Udp) 5 ml PO Q6H PRN PRN Reason: Cough Stop: 08/13/22 10:28 Losartan Potassium (Losartan Potassium 50 Mg Tab) 50 mg PO DAILY ALLEY Stop: 08/27/22 08:59 Last Admin: 07/31/22 08:13 Dose: 50 mg Rosuvastatin Calcium (Rosuvastatin Calcium 5 Mg Tab) 5 mg PO DAILY ALLEY Stop: 08/27/22 08:59 Last Admin: 07/31/22 08:13 Dose: 5 mg Fluticasone/Salmeterol (Fluticasone/Salmeterol 250/50 (Advair) 14 Puff/1 Inhaler) 1 puffs INH BID ALLEY Stop: 08/26/22 23:29 Last Admin: 07/31/22 08:14 Dose: 1 puffs
--- NOTE | 2022-07-31 16:53 | Discharge Summary ---
Date of Service July 31, 2022 Admission HPI Per Admitting Provider Past medical history of Stage 1b right lung adenocarcinoma s/p right upper lobectomy with 4 cycles of chemotherapy in 2007(as per chart review) , COPD, hypertension, and generalized anxiety disorder. Recent admission in May 2022 with confusion. Was found to have hyponatremia. Chest x-ray at that time showed 3 cm left suprahilar opacity. Per note, patient was recommended to undergo CT chest; declined any further work-up at that time. Patient presents to the hospital with 1 episode of hematemesis around 2 PM; reports the hemoptysis was about size of her "thumb", denies any further episodes. She denies any other episode of cough. She denies any chest pain, shortness of breath, fever or dizziness. Patient has history of smoking; 1 pack/day for 20 years; she quit smoking in 2019. She lives alone; is independent of all her ADLs. She has a daughter and a son who live close by. They were also present at the time of the interview. On arrival to the ED, patient is hemodynamically stable, saturating well in room air. Her hemoglobin is 11.0; similar to her previous hemoglobin. Her sodium is 136. CTA PE protocol was done which showed left hilar/left upper lobe mass suggestive of primary bronchogenic carcinoma measuring 4.6 cm; masses contiguous with metastatic AP window lymphadenopathy. She was also found to have emphysema with prior right upper lobectomy. Findings of the CT scan was discussed with her. As per note, patient did not want to work-up during her last admission. However, patient is very much concerned regarding the CT findings. She is interested in work-up and treatment if is indicated. Patient is agreeable to be admitted to the hospital for closer monitoring and evaluation. Admission Exam Per Admitting Provider Physical Exam: Constitutional: Awake, alert orient x3; not in any distress. Neck: trachea midline, no thyromegaly normal visual inspection Respiratory: vesicular breath sound; no added sound. 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, COPD with emphysema Discharge Exam Lying in bed comfortably Constitutional well developed, well nourished, + ill appearing and + obese Eyes PERRL, conjunctivae normal, anicteric sclerae ENMT external ear and nose normal, oropharynx normal Neck trachea midline, no thyromegaly Respiratory no respiratory distress Auscultation: no diminished lung sounds (Left upper lung) and no crackles Cardiovascular Rate/Rhythm: regular rate and regular rhythm; not tachycardic Heart Sounds: normal S1 and normal S2; no murmur Extremities: no edema Gastrointestinal (Abdomen) Inspection/Auscultation: normal bowel sounds; abdomen not distended Percussion/Palpation: abdomen soft; abdomen nontender Psychiatric A+Ox3, euthymic affect Lymphatic no cervical or axillary lymphadenopathy Discharge Data Allergies Allergy/AdvReac Type Severity Reaction Status Date / Time No Known Allergies Allergy Unknown Verified 05/13/20 20:17 Consultations 07/27/22 18:27 ED Decision to Admit Stat 07/27/22 20:35 Consult Pulmonology Routine Procedures Performed Operation Date: 07/29/22 08:20 Actual Procedures p Bronchoscopy Navigational(Not Applicable) - Selin Giordano MD, [facility] s Endobronchial Ultrasound(Not Applicable) - Selin Giordano MD, [facility] s Bronchoscopy Respiratory - Selin Giordano MD, [facility] Ordered Studies 07/27/22 15:35 CT angio chest PE protocol Stat 07/28/22 13:03 MRI Brain [MR brain wo/w con] Routine 07/29/22 07:00 CT bronch Veran chest wo Routine Hospital Course (1) Hemoptysis: (2) Lung mass: (3) History of lung cancer: Pathology came back positive for small cell lung cancer Past medical history of right upper lobectomy for lung cancer in 2007 followed by chemotherapy. History of smoking Presents with 1 episode of hemoptysis No more episode of hematemesis since admission. Hemoglobin 10.6 today; [address] angio shows left hilar/left upper lobe mass suggestive of primary bronchogenic carcinoma measuring 4.6 cm; masses contiguous with metastatic AP window lymphadenopathy. Plan; - monitor for any signs of hemoptysis, shortness of breath. Will start [id number] antitussive as per pulmonology recommendation. Patient to undergo bronchoscopy tomorrow AM. N.p.o. from midnight. MRI brain with and without contrast ordered to rule out mets. No anticoagulation -Appreciate pulmonary input and recommendation -Status post bronchoscopy -Repeat chest x-ray showing possible minor bleeding involving the site of the bronchoscopy -Repeat x-ray this morning shows clearance of the questionable bleeding and the patient does not have any more hemoptysis Niccoli much better likely be discharged tomorrow She has been ambulating in the room without difficulty sent has not required any oxygen She will be given cough medicine with Hycodan Will have outpatient appointment with the oncologist Remains stable and normal hemoptysis and no shortness of breath-will be discharged home this afternoon Will be called with appointment with the oncologist, radiation oncologist and PCP Other conditions: Chronic hyponatremia- Na of 137; continue fluid restriction 1500ml. Hypertension- continue cardizem, hydaralzine , losartan. HLD- rosuvastatin Generalized anxiety disordercontinue Klonopin Anxiety seems to be controlled Code Status DNR/DNI; discussed with patient. 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, COPD with emphysema Condition on Discharge: Fair Activity: Resume your previous activity Non-emergency contact: Primary Care Provider Call non-emergency contact if: you have any medication questions and your symptoms worsen Follow-up/Referrals: Oriana Santizo, [Primary Care Provider] - (Your doctor's office will call you with an appointment within 7 days) Diet: Regular Fluids: 1500ml (6 cups) Addtl Attending Provider Instructions: Please take precautions to avoid fall Please take your medications as advised Keep appointment with your healthcare providers We will give you a call after setting up appointments with your PCP and oncologist Pending Studies at Discharge: No Stand-Alone Forms: My [employer], Smoking Cessation Medications and DC Order Prescriptions: New Anoro Ellipta 62.5-25 mcg/actuation blister with device 1 inh inhalation DAILY Qty: 60 0RF codeine-guaifenesin [Guaifenesin AC] 10-100 mg/5 mL liquid 5 ml PO Q6H PRN (Reason: cough) Qty: 118 0RF Continued losartan 50 mg tablet 50 mg PO DAILY hydralazine 10 mg tablet 10 mg PO TID diltiazem HCl 180 mg capsule,extended release 24hr 180 mg PO DAILY clonazepam 0.5 mg tablet 0.5 mg PO BID gabapentin 300 mg capsule 300 mg PO HS fluticasone propionate 50 mcg/actuation spray,suspension 2 spray INTRANASAL DAILY Rx Instructions: 2 sprays in affected nostril daily rosuvastatin 5 mg tablet 5 mg PO DAILY cholecalciferol (vitamin D3) [Vitamin D3] 25 mcg (1,000 unit) Tablet 25 mcg PO DAILY [id number] C-Mn [Glucosamine Chondroitin MaxStr] 500-400 mg Capsule 1 cap PO DAILY omega [id number]-[id number]-fish oil [Fish Oil] 1,000 mg (120 mg-180 mg) Capsule 1 cap PO DAILY Discontinued fluticasone propion-salmeterol 250-50 mcg/dose blister with device 1 ea INHALATION [facility] Discharge Orders: Discharge Order (Routine); Ordered 07/31/22 Ordered By: Maddi Martin Admission Data Admit Date/Time: 07/27/22 19:03 Attending Provider: Maddi Martin Admit Provider: Brian Culver Primary Care Provider: Oriana Santizo Other Providers: Brian Culver ; Selin Giordano Other Interventions: Discharge Summary Assessment (RN) Last Done: 07/31/22 13:44
== END 2022-07-31 14:40 | disposition home or self-care (01) | DRG 167 ==
LOC: ED 15:19 → SUATTDRO 19:03 → 4W 19:03